=== PATIENT | female | born 1940 | race Caucasian/White ===

== ENCOUNTER → 2017-03-18 | Day surgery (SDC) | payer OTHER ==
--- NOTE | 2017-02-17 14:03 | Diagnostic Imaging Report ---
PROCEDURE: Frontal and lateral views of the chest. COMPARISON: [facility], CT, CT CHEST WO, 10/11/2016, 8:15. Patients [facility], DX, CHEST 2 VIEWS, 10/10/2016, 9:56. INDICATIONS: PRE OP KIDNEY STONE REMOVAL FINDINGS: Lines/tubes: None. Lungs: Mild limitation due to low lung volumes and body habitus. Previously visualized airspace opacity in the right midlung has resolved. No consolidation or pulmonary edema. Minimal bibasilar atelectasis. Pleura: There is no pleural effusion or pneumothorax. Heart and mediastinum: The cardiac silhouette is enlarged, but stable, which may be partially due to low volumes. Stable, rounded density in the retrocardiac region, consistent with previously visualized hiatal hernia. Bones: No acute bony abnormality. Degenerative changes in the thoracic spine. IMPRESSION: 1. limited by low lung volumes and body habitus. Minimal bibasilar atelectasis. Gael Kahn M.D. Dictated by: Gael Kahn M.D. on 02/17/2017 at 14:09 Electronically approved by: Gael Kahn M.D. on 02/17/2017 at 14:09
[~2017-03-18] MED LIST: AMOXICILLIN250 MG PO; ASPIRIN CHEW81 MG PO; AZITHROMYCIN250 MG PO; BELLADONNA/OPIUM 60 MG SUPP PR ONE; CEFDINIR300 MG PO; CEFTRIAXONE SOD 1 GM/NS 50 ML 50 ML IV ONE; CEFUROXIME250 MG PO; CEFUROXIME500 MG PO; CHERATUSSIN AC118 ML PO; COMBIGAN EYE DRO5 ML OP; DAILY VITAMIN1 EAC3 PO; DESFLURANE 240 ML BTL INH ONE; DEXAMETHASONE SOD PHOS INJ 4 MG/ML VIAL ONE; EPHEDRINE SULFATE INJ 50 MG/10 ML SYR ONE; FAMOTIDINE20 MG PO; FLOMAX0.4 MG PO; FLUTICASONE; FLUTICASONE 50 MG; IOPAMIDOL 610MG/1ML 300 MG/ML VIAL IV ONE; JANUMET 50-1,01 EACH PO; KLONOPIN1 MG PO; LAC PO; LIBRAX CAPSULE1 EACH PO; LORATADINE10 MG PO; LUMIGAN2.5 M1 OP; MACROBID 100 M100 MG PO; MIDAZOLAM HCL 2 MG/2 ML VIAL ONE; MYRBETRIQ50 MG PO; NITROFURANTOIN100 MG PO; NYSTATIN100000 UNI PO; OMEPRAZOLE40 MG PO; ONDANSETRON HCL INJ 2 MG/ML VIAL ONE; OS-CAL 500+D T1 EACH PO; OXYBUTYNIN CHLOR5 MG PO; PROPOFOL IV EMULSION 10 MG/ML 20 ML VIAL ONE; PROVENTIL HFA6.7 GM INH; QUESTRAN PACKET4 GM PO; REGLAN10 MG PO; SULFAMETHOXAZO1 EAC1 PO; TAMIFLU75 MG PO; ULTRAM50 MG PO; VITAMIN B-121000 MCG PO; Z.0.AMLODIPINE BESYL PO; Z.0.JANUVIA100 MG PO; Z.0.LATANOPROST2.5 M OP; Z.0.LISINOPRIL40 MG PO; Z.0.LOVASTATIN40 MG PO; Z.0.OMEPRAZOLE20 M1 PO; Z.0.OXYBUTYNIN CHLOR PO; Z.1.METFORMIN HCL100 PO; ZOFRAN ODT4 MG PO
[2017-03-18 06:55] LABS: BASOPHILS % 0.4 % (0.0-1.0); EOSINOPHILS % 0.4 % (0.0-6.0); HEMATOCRIT 40.8 % (34.2-44.1); HEMOGLOBIN 12.8 g/dL (12.0-16.0); LYMPHOCYTES # (AUTO) 1.5 (1.0-3.2); LYMPHOCYTES % 15.9 % (18.0-39.1); MEAN CORPUSCULAR HEMOGLOBIN 26.2 pg (28-32); MEAN CORPUSCULAR HGB CONC 31.4 g/dL (31-35); MEAN CORPUSCULAR VOLUME 83.6 fL (81-99); MONOCYTES # (AUTO) 0.7 (0.2-0.8); MONOCYTES % 7.2 % (4.4-11.3); NEUTROPHILS % 75.8 % (38.7-80.0); PLATELET COUNT 255 x10e3/uL (140-360); RED BLOOD COUNT 4.88 x10e6/uL (3.6-5.1); RED CELL DISTRIBUTION WIDTH 13.5 % (11.7-14.4)
[2017-03-18 07:09] LABS: ANION GAP 14.3 mmol/L (8-16); BLOOD UREA NITROGEN 11 mg/dL (7-26); BUN/CREATININE RATIO 16 (6-25); CALCIUM 9.4 mg/dL (8.4-10.2); CARBON DIOXIDE 27 mmol/L (22-29); CHLORIDE 101 mmol/L (98-107); EST GLOMERULAR FILTRATION RATE > 60 ML/MIN (60-); GLUCOSE 142 mg/dL (74-118); POTASSIUM 4.3 mmol/L (3.5-5.1); SODIUM 138 mmol/L (136-145)
--- NOTE | 2017-03-18 08:04 | Diagnostic Imaging Report ---
PROCEDURE:X-RAY ABDOMEN - KUB COMPARISON:CT scan of the abdomen and pelvis dated 01/28/2017 INDICATIONS:PRE-OP, BILATERAL STONES FINDINGS: There are no dilated loops of bowel to suggest obstruction. There are no masses. There are 3 small calcifications that overlie the lower pole of the right kidney. There is no evidence of free air. No acute osseous abnormalities are present. CONCLUSION: 1. No acute abdominal abnormality. 2. small stones overlying the lower aspect of the right kidney. Kevin Crespo D.O. Dictated by: Kevin Crespo D.O. on 03/18/2017 at 8:11 Electronically approved by: Kevin Crespo D.O. on 03/18/2017 at 8:11
--- NOTE | 2017-04-29 04:37 | Operative Report ---
DATE OF PROCEDURE: March 18, 2017 PREOPERATIVE DIAGNOSES 1. Right nephrolithiasis. 2. Urinary tract infections. 3. Mixed-type urinary incontinence. POSTOPERATIVE DIAGNOSES 1. Right nephrolithiasis. 2. Urinary tract infections. 3. Mixed-type urinary incontinence. 4. Grade 3 cystocele of the cephalad portion of the vagina. 5. Grade 3 rectocele. 6. Atrophic (senile) vaginitis. OPERATIONS PERFORMED: Note these are all staged procedures as part of multistage, multistep process of managing the patient's urolithiasis. 1. Right-sided extracorporeal shockwave lithotripsy (separate procedure performed for the right nephrolithiasis). 2. Cystourethroscopy with bilateral ureteral catheterization and retrograde ureteropyelography (separate procedure performed for the urinary tract infections). 3. Interpretation retrograde ureteropyelography. 4. Supervision of fluoroscopy. No radiologist present. 5. Pelvic examination under anesthesia. ANESTHESIA: General. COMPLICATIONS: None. CLINICAL SUMMARY: Zoey Valle is a 76-year-old woman with recurrent urolithiasis and recurrent urinary tract infections. She is brought for the above procedures. She is aware of the risks of bleeding, infection, injury to adjacent structures, need for additional procedures, and elected proceed. OPERATIVE PROCEDURE IN DETAIL: Informed consent was verified. Zoey Valle was properly identified and taken to the operating room and placed on the lithotripsy table in the supine position. Anesthesia was uneventfully begun. The patient's right lower caliceal 5-mm stone was localized with biplanar fluoroscopy. A total of 3000 shocks were delivered with fragmentation noted. The patient was then carefully and gently repositioned in the dorsal lithotomy position with all pressure points well-padded. Her genitalia were prepared and draped in the usual sterile fashion. The 22.5-Welsh cystoscope sheath with the obturator in place was atraumatically inserted in the patient's urethra and bladder was drained. Panendoscopy of the urinary bladder revealed no suspicious mucosal lesions. No tumors. No stones and no diverticula. Mild trabeculations were noted. An 8-Welsh catheter was used cannulate each ureter, and retrograde ureteropyelograms were performed. Interpretation of retrograde ureteropyelography. Contrast was instilled in a retrograde fashion bilaterally. On the right hand side, there were no tumors. No diverticula. We identified filling defect corresponding to the region where we performed lithotripsy. Unobstructed drainage was observed fluoroscopically. On the left hand side, we could never visualize left lower pole stone that was previously noted on prior radiographic studies. There was no hydronephrosis and unobstructed drainage was observed fluoroscopically. The patient's bladder was then drained. Cystoscope was withdrawn. Pelvic examination under anesthesia revealed a grade 3 cystocele with the cephalad most extent of the anterior vaginal wall. There was a grade 3 rectocele. There was atrophic (senile) vaginitis. No abnormal palpable pelvic masses could be appreciated. The patient was then uneventfully reversed from anesthesia and taken to the recovery room in stable condition. Explicit postoperative instructions were given. Will follow the patient up in the office. Job#: [id number] AYAN
== END | disposition home or self-care (01) ==
LOC: OR 05:13
PROVIDERS: ATTEND Urology
DX: N20.0 Calculus of kidney (principal); N39.46 Mixed incontinence; N35.9 Urethral stricture, unspecified; N30.10 Interstitial cystitis (chronic) without hematuria; N32.89 Other specified disorders of bladder; R81 Glycosuria; N81.10 Cystocele, unspecified; N81.6 Rectocele; N95.2 Postmenopausal atrophic vaginitis; I10 Essential (primary) hypertension; E66.9 Obesity, unspecified; E78.5 Hyperlipidemia, unspecified; E11.9 Type 2 diabetes mellitus without complications; K21.9 Gastro-esophageal reflux disease without esophagitis; Z01.810 Encounter for preprocedural cardiovascular examination; Z01.818 Encounter for other preprocedural examination; Z79.82 Long term (current) use of aspirin; Z68.33 Body mass index [BMI] 33.0-33.9, adult; Z87.01 Personal history of pneumonia (recurrent)
CPT/HCPCS: 36415; 50590; 71020; 74000; 80048; 82948; 84550; 85025; 93005; C1758; J0696; J1100; J2250; J2405; Q9967

== ENCOUNTER 2017-05-20 08:30 | Emergency (ER) | payer OTHER ==
[~2017-05-20] VITALS: Ht 165.1 cm; Wt 93.4 kg
[~2017-05-20 08:30] MED LIST changes: -BELLADONNA/OPIUM 60 MG SUPP PR ONE; -CEFTRIAXONE SOD 1 GM/NS 50 ML 50 ML IV ONE; -DESFLURANE 240 ML BTL INH ONE; -DEXAMETHASONE SOD PHOS INJ 4 MG/ML VIAL ONE; -EPHEDRINE SULFATE INJ 50 MG/10 ML SYR ONE; -IOPAMIDOL 610MG/1ML 300 MG/ML VIAL IV ONE; -MIDAZOLAM HCL 2 MG/2 ML VIAL ONE; -ONDANSETRON HCL INJ 2 MG/ML VIAL ONE; -PROPOFOL IV EMULSION 10 MG/ML 20 ML VIAL ONE
--- OUTSIDE RECORDS SUMMARY | 2017-05-20 08:33 | XMS REPORT | Clinical Summary ---
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 Disp. Refills Start End Date Status Date omeprazole (PriLOSEC) 20 Take 20 mg by mouth Active MG capsule daily. bimatoprost (LUMIGAN) 1 drop nightly. Active 0.03 % ophthalmic drops sitaGLIPtin (JANUVIA) 50 Take 50 mg by mouth Active MG tablet daily. lovastatin (MEVACOR) 40 40 mg. 10/09/19 Active MG tablet 17 losartan (COZAAR) 100 MG 100 mg. 0 11/06/19 Active tablet 17 famotidine (PEPCID) 40 MG 40 mg. 3 12/26/19 Active tablet 17 amLODIPine (NORVASC) 5 mg 5 mg. 0 12/26/19 Active tablet 17 sulfamethoxazole-trimetho Take 1 tablet by mouth 2 Active prim (BACTRIM DS) 800-160 (two) times a day. mg per tablet azelastine (ASTELIN) 137 2 sprays into each 30 mL 2 12/31/19 Active mcg (0.1 %) nasal nostril 2 (two) times a 17 18 sprayIndications: day. Use in each nostril Seasonal allergic as directed rhinitis due to pollen lisinopril Take 40 mg by mouth 11/27/19 Discontin (PRINIVIL,ZESTRIL) 40 mg daily. 17 ued tablet Hospital, Clinic, or Ordered Dose Route Frequency Start End Date Status Other Facility Date Administered Medication triamcinolone acetonide 40 MG IM Once 12/31/19 Active (KENALOG-40) injection 40 17 mgIndications: Seasonal allergic rhinitis due to pollen Active Problems Problem Noted Date Seasonal allergic rhinitis due to pollen 12/30/2016 Tinnitus 11/26/2016 Thyroid nodule 11/26/2016 Sensorineural hearing loss, bilateral 11/26/2016 Encounters Date Type Specialty Care Team Description 12/30/2016 Office Visit Otolaryngology Adama Galarza MD Seasonal allergic rhinitis due to pollen (Primary Dx) 11/26/2016 Office Visit Otolaryngology Adama Galarza MD Tinnitus, left (Primary Dx);Thyroid nodule;Sensorineural hearing loss, bilateral after 05/19/2016 Social History Tobacco Use Types Packs/Day Years Used Date Never Smoker Alcohol Use Drinks/Week oz/Week Comments No Sex Assigned at Date Recorded Not on file Last Filed Vital Signs Vital Sign Reading Time Taken Blood Pressure 136/83 12/30/2016 2:00 PM CDT Pulse 72 12/30/2016 2:00 PM CDT Temperature - - Respiratory Rate - - Oxygen Saturation - - Inhaled Oxygen - - Concentration Weight 93 kg (205 lb) 12/30/2016 2:00 PM CDT Height 165.1 cm (5' 5") 12/30/2016 2:00 PM CDT Body Mass Index 34.11 12/30/2016 2:00 PM CDT Plan of Treatment Health Maintenance Due Date Last Done Comments COLONOSCOPY 1992 MAMMOGRAM 1992 ZOSTER VACCINE 2002 PNEUMOCOCCAL 12/21/2007 POLYSACCHARIDE VACCINE AGE 65 AND OVER PNEUMOCOCCAL-13 12/21/2007 INFLUENZA VACCINE 11/10/2016 Results Not on fileafter 05/19/2016 Insurance Payer Benefit Subscriber ID Type Phone Address Plan / Group [employer] TEX[employer] [id number] [facility]
--- OUTSIDE RECORDS SUMMARY | 2017-05-20 08:33 | XMS REPORT ---
[facility] Address Unknown Phone Unavailable Care Team Providers Care Seat Joiner Name Role Phone LEANNA MARTINEZ Unavailable Unavailable MELISA SQUIRES Unavailable Unavailable Problems This patient has no known problems. Allergies, Adverse Reactions, Alerts This patient has no known allergies or adverse reactions. Medications This patient has no known medications. Results Test Description Test Time Test Comments Text Results Atomic Results Result Comments ABDOMEN-1VIEW (KUB) [place] [address] Patient Name: AMNA GALICIA MR #: [id number] : 1940 Age/Sex: 76/F Req #: [id number] Adm Physician: Ordered by: LEANNA MARTINEZ MD Report #: [id number] Location: OR Room/Bed: Procedure: [id number] DX/ABDOMEN-1VIEW (KUB) Exam Date: 03/18/17 Exam Time : 0620 REPORT STATUS: Signed PROCEDURE: X-RAY ABDOMEN - KUB COMPARISON: CT scan of the abdomen and pelvis dated 01/28/2017 INDICATIONS: PRE-OP, BILATERAL STONES FINDINGS: There are no dilated loops of bowel to suggest obstruction. There are no masses. There are 3 small calcifications that overlie the lower pole of the right kidney. There is no evidence of free air. No acute osseous abnormalities are present. CONCLUSION: 1. No acute abdominal abnormality. 2. small stones overlying the lower aspect of the right kidney. Carmen Crespo D.O. Dictated by: Carmen Crespo D.O. on 03/18/2017 at 8:11 Electronically approved by: Carmen Crespo D.O. on 03/18/2017 at 8:11 Dictated By: CARMEN CRESPO DO 0 Transcribed By: FAUSTINA on 03/18/17810 COPY TO: LEANNA MARTINEZ MD CHEST 2 VIEWS [place] [address] Patient Name: AMNA GALICIA MR #: [id number] : 1940 Age/Sex: 76/F Req #: [id number] Adm Physician: Ordered by: LEANNA MARTINEZ MD Report #: [id number] Location: OR Room/Bed: Procedure: [id number] DX/ CHEST 2 VIEWS Exam Date: 02/17/17 Exam Time: 1300 REPORT STATUS: Signed PROCEDURE: Frontal and lateral views of the chest. COMPARISON: [facility], CT, CT CHEST WO, 10/11/2016, 8: 15. [facility], DX, CHEST 2 VIEWS, 10/10/2016, 9:56. INDICATIONS: PRE OP KIDNEY STONE REMOVAL FINDINGS: Lines/tubes: None. Lungs: Mild limitation due to low lung volumes and body habitus. Previously visualized airspace opacity in the right midlung has resolved. No consolidation or pulmonary edema. Minimal bibasilar atelectasis. Pleura : There is no pleural effusion or pneumothorax. Heart and mediastinum: The cardiac silhouette is enlarged, but stable, which may be partially due to low volumes. Stable, rounded density in the retrocardiac region, consistent with previously visualized hiatal hernia. Bones: No acute bony abnormality. Degenerative changes in the thoracic spine. IMPRESSION: 1. limited by low lung volumes and body habitus. Minimal bibasilar atelectasis. Joy Kahn M.D. Dictated by: Joy Kahn M.D. on 02/17/2017 at 14:09 Electronically approved by: Joy Kahn M.D. on 02/17/2017 at 14:09 Dictated By: JOY KAHN MD 08 Transcribed By: FAUSTINA on 02/17/171408 COPY TO: LEANNA MARTINEZ MD CT ABDOMEN/PELVIS WO [place] [address] Patient Name: AMNA GALICIA MR #: [id number] : 1940 Age/Sex: 76/F Req #: [id number] Adm Physician: Ordered by: MELISA SQUIRES MD Report #: [id number] Location: ER Room/Bed: Procedure: [id number] CT/CT ABDOMEN/PELVIS WO Exam Date: 01/28/17 Exam Time: 0946 REPORT STATUS: Signed PROCEDURE: CT ABDOMEN AND PELVIS WITHOUT CONTRAST COMPARISON: CT abdomen/pelvis, 11/07/14. INDICATIONS: STONE PROTOCOL TECHNIQUE: Axial CT images through the abdomen and pelvis were obtained without IV contrast. Renal stone protocol performed. Coronal and sagittal reformations were created. Total exam DLP: 803.12 mGy-cm FINDINGS: Lung bases: Scattered interstitial prominence the lung bases with no focal opacity or pleural effusion. Heart size normal. Liver: In the dome of the right lobe of the liver again noted are 2 stable masses containing fat and calcification, the larger measuring 2.1 cm (series 3, image 13 and image 18). No new liver mass or intrahepatic bile duct dilatation. Spleen: No splenomegaly. Biliary: Surgical absence of the gallbladder with cholecystectomy clips. Pancreas: No mass, duct dilatation or peripancreatic inflammation. Adrenal Glands: No nodules. Kidneys: No hydronephrosis. There are bilateral nonobstructing intrarenal calculi measuring 6 mm in the lower pole of the right kidney and 4 mm in the lower pole of the left kidney. These have increased slightly since the previous exam. Stable small lateral right renal cyst. Vasculature: The abdominal aorta is atherosclerotic with scattered calcified plaque. No aneurysm. GI: Moderate hiatus hernia again noted. Ludwig colonic diverticulosis with no CT evidence for diverticulitis. Moderately large volume of stool in the colon which may be seen in constipation. Normal appendix. Peritoneum/Retroperitoneum : No pneumoperitoneum or ascites. No dominant mesenteric or para-aortic lymphadenopathy. Bladder: Urinary bladder appears unremarkable. No discrete abnormal mass or fluid collection in the pelvis. Reproductive organs: The uterus is anteverted with a small exophytic fundal mass likely representing a fibroid. Musculoskeletal: No acute or suspicious bony lesion. There are degenerative changes in the lumbar spine. There also degenerative changes in the hips. Superficial surrounding soft tissue unremarkable. CONCLUSION: 1. Small bilateral nonobstructing intrarenal calculi measuring up to 6 mm on the right and 4 mm on the left. These have increased slightly in size since previous exam. No hydronephrosis or ureteral calculus. 2. Small masses in the dome of the right lobe of the liver, measuring up to 2.1 cm, unchanged from previous exam. 3. Ludwig colonic diverticulosis with no CT evidence for acute diverticulitis. 4. Moderate hiatus hernia. Dictated by: Radha Guardado M.D. on 01/28/2017 at 11:08 Electronically approved by: Radha Guardado M.D. on 01/28/2017 at 11:08 Dictated By: RADHA GUARDADO MD 110 Transcribed By: FAUSTINA on 01/28/178 COPY TO : MELISA SQUIRES MD
[2017-05-20] MEDS ORDERED: SODIUM CHLORIDE 0.9% 1000ML 1,000 ML IV SCH (08:45)
[2017-05-20 09:35] LABS: BILIRUBIN,URINE 1+ (NEGATIVE); KETONES,URINE 1+ (NEGATIVE); LEUKOCYTE ESTERASE ,URINE NEGATIVE (NEGATIVE); NITRITE,URINE NEGATIVE (NEGATIVE); URINE UROBILINOGEN 0.2 mg/dL (0.2 - 1)
[2017-05-20 09:39] LABS: CLARITY,URINE SL CLOUDY (CLEAR); COLOR,URINE YELLOW (YELLOW); PROTEIN,URINE DIPSTICK 1+ (NEGATIVE)
[2017-05-20 10:07] LABS: BASOPHILS % 0.5 % (0.0-1.0); EOSINOPHILS # (AUTO) 0.1 (0.0-0.4); EOSINOPHILS % 0.6 % (0.0-6.0); HEMATOCRIT 41.4 % (34.2-44.1); HEMOGLOBIN 12.9 g/dL (12.0-16.0); LYMPHOCYTES % 23.8 % (18.0-39.1); MEAN CORPUSCULAR HEMOGLOBIN 26.7 pg (28-32); MEAN CORPUSCULAR HGB CONC 31.2 g/dL (31-35); MEAN CORPUSCULAR VOLUME 85.5 fL (81-99); MONOCYTES # (AUTO) 0.7 (0.2-0.8); MONOCYTES % 8.7 % (4.4-11.3); NEUTROPHILS # (AUTO) 5.6 (2.1-6.9); NEUTROPHILS % 65.9 % (38.7-80.0); PLATELET COUNT 271 x10e3/uL (140-360); RED BLOOD COUNT 4.84 x10e6/uL (3.6-5.1); RED CELL DISTRIBUTION WIDTH 14.6 % (11.7-14.4)
[2017-05-20 10:16] LABS: BACTERIA,URINE RARE /HPF; EPITHELIAL CELLS,URINE RARE /LPF; TRANSITIONAL EPI CELLS,URINE RARE
[2017-05-20 10:18] LABS: ALANINE AMINOTRANSFERASE 17 IU/L (0-55); ALBUMIN 4.2 g/dL (3.5-5.0); ALBUMIN/GLOBULIN RATIO 1.2 (0.8-2.0); ALKALINE PHOSPHATASE 87 IU/L (40-150); ANION GAP 13.9 mmol/L (8-16); BLOOD UREA NITROGEN 11 mg/dL (7-26); BUN/CREATININE RATIO 15 (6-25); CALCIUM 9.1 mg/dL (8.4-10.2); CARBON DIOXIDE 26 mmol/L (22-29); CHLORIDE 105 mmol/L (98-107); CREATININE, SERUM 0.75 mg/dL (0.57-1.11); EST GLOMERULAR FILTRATION RATE > 60 ML/MIN (60-); GLUCOSE 124 mg/dL (74-118); POTASSIUM 3.9 mmol/L (3.5-5.1); SODIUM 141 mmol/L (136-145)
[2017-05-20 10:22] LABS: OVALOCYTES FEW; PLATELET ESTIMATE ADEQUATE
[2017-05-20 10:23] LABS: ANISOCYTOSIS SLIGHT; PLATELET MORPHOLOGY COMMENT NORMAL; RBC MORPHOLOGY COMMENT NORMAL
[2017-05-20] MEDS ORDERED: ZOFRAN4 MG SL (10:32)
[2017-05-20] MEDS ORDERED: MECLIZINE HCL12.5 MG PO (10:33)
[2017-05-20 11:10] VITALS: BP 121/73
== END 2017-05-20 11:15 | disposition home or self-care (01) ==
LOC: ER 08:30
DX: N39.41 Urge incontinence (principal); E86.0 Dehydration; Z87.440 Personal history of urinary (tract) infections
CPT/HCPCS: 36415; 80053; 81001; 85025; 87086; 99283; J7030

== ENCOUNTER 2017-08-14 08:25 | Emergency (ER) | payer OTHER ==
[~2017-08-14] VITALS: Ht 165.1 cm; Wt 93.4 kg
[~2017-08-14 08:25] MED LIST changes: +MECLIZINE HCL12.5 MG PO; +ZOFRAN4 MG SL
--- OUTSIDE RECORDS SUMMARY | 2017-08-14 08:28 | XMS REPORT | Clinical Summary ---
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 Name Role Phone Clement Mann MD PCP Allergies Active Allergy Reactions [...] Facility Date Administered Medication triamcinolone acetonide 40 mg IM once 12/31/19 Active (KENALOG-40) injection 40 17 mgIndications: [...] Otolaryngology Adama Galarza MD Tinnitus, left (Primary Dx); Thyroid nodule; Sensorineural hearing loss, bilateral after 08/13/2016 Social History Tobacco Use Types Packs/Day Years [...] Last Done Comments COLONOSCOPY 1992 MAMMOGRAM 1992 SHINGRIX VACCINE (#1) 1992 ZOSTER VACCINE 2002 PNEUMOCOCCAL 12/21/2007 POLYSACCHARIDE VACCINE AGE 65 AND OVER PNEUMOCOCCAL-13 12/21/2007 INFLUENZA VACCINE 11/10/2017 Results Not on fileafter 08/13/2016 Insurance Payer Benefit Subscriber ID Type Phone Address Plan / Group TEX[employer] TEXAN[employer]US xxxxxxxxx [facility]MO [facility]
--- OUTSIDE RECORDS SUMMARY | 2017-08-14 08:28 | XMS REPORT | Continuity of Care Document ---
Author Author [facility] Organization [facility] Address [address] [place] [address] Phone Unavailable Care Team Providers Care Core Stripper Name Role Phone NONSTAFF PCP Unavailable Insurance Providers Guarantor Zoey Valle Address [address] [place] [address] Email [email or web address] Payer [employer] Policy Number [id number] Subscriber's Name Zoey Valle Relationship 18 Self / Same As Patient Group Number [id number] Group Name [employer] - [employer] Effective Date 17 Advance Directives Directive Response Recorded Date/Time Does the patient have an advance directive? Yes 10/10/16 3:52pm If yes, is advance directive on file with [facility]? No 10/10/16 3:52pm If not on file with [facility] will patient provide a copy? Yes 10/10/16 3:52pm Do you have a Directive to Physician? No 05/20/17 9:23am Do you have a Medical Power of Paper Machine Supervisor? Yes 05/20/17 9:23am Do you have an out of hospital Do Not Resuscitate Order? No 05/20/17 9:23am Do you have any special needs we should be aware of? No 05/20/17 9:23am Do you have a support person here with you today? No 05/20/17 9:23am Did patient receive Notice of Privacy Practices? Yes 05/20/17 9:23am Did patient receive patient rights and responsibilities? Yes 05/20/17 9:23am Problems Medical Problem Onset Date Status Abdominal pain, vomiting, and diarrhea 06/28/2014 Acute Chest pain 11/13/2015 Acute Dehydration Unknown Dyspnea 11/13/2015 Acute Fatigue 11/13/2015 Acute Influenza B Unknown Kidney stone on left side Unknown Acute Kidney stone on right side Unknown Acute Pneumonia Unknown Renal colic, bilateral Unknown Acute Ureteral stone 06/28/2014 Acute Urinary tract infection Unknown Acute Medications Current Home Medications Medication Dose Units Route Directions Days Qty Instructions Start Date Amlodipine Besylate 5 Mg Tablet 5 Mg Oral Daily Aspirin (Aspirin Chew) 81 Mg Chew 81 Mg Oral Daily 30 Tab Bimatoprost (Lumigan) 2.5 Ml Drops 2.5 Mg Ophthalmic Daily Brimonidine Tartrate (Combigan Eye Drops) 5 Ml Drpette 1 Drop Ophthalmic Daily Calcium Carbonate/Vitamin D3 (Os-Jd 500+D Tablet) 1 Each Tablet 500 Mg Oral Twice A Day 30 Tab Cyanocobalamin (Vitamin B-12) 1,000 Mcg Tab 1,000 Mcg Oral Daily 30 Tab Famotidine 20 Mg Tab 40 Mg Oral Daily 30 Tab Lisinopril 40 Mg Tablet 40 Mg Oral Daily Loratadine 10 Mg Tablet 10 Mg Oral Daily 30 Tab Lovastatin 40 Mg Tablet 40 Mg Oral Bedtime Meclizine Hcl 12.5 Mg Tablet 25 Mg Oral Daily for Dizziness 7 Days 30 Tab 05/20/17 Multivitamin (Daily Vitamin) 1 Each Tablet 1 Oral Daily Nitrofurantoin Macrocrystal (Nitrofurantoin) 100 Mg Capsule 100 Mg Oral Daily Omeprazole 40 Mg Capsule.dr 20 Mg Oral Daily Ondansetron (Zofran Odt) 4 Mg Tab.rapdis 4 Mg Oral Every 4 Hours as needed for Nausea And Vomiting Ondansetron Hcl (Zofran*) 4 Mg Tablet 4 Mg Sublingual Every 6 Hours as needed for Nausea 7 Days 14 Milligram 05/20/17 Sitagliptin Phos/Metformin Hcl (Janumet 50-1,000 Mg Tablet) 1 Each Tablet 1 Tab Oral Twice A Day Tramadol Hcl (Ultram) 50 Mg Tablet 50 Mg Oral Every 8 Hours for Pain Past Home Medications Medication Directions Ordered Status Albuterol Sulfate (Proventil Hfa) 6.7 Gm Hfa.aer.ad, 2 Inh Inhalation Discontinued Amoxicillin 250 Mg Capsule, 500 Mg Oral Three Times A Day Discontinued Azithromycin (Z-Sean) 250 Mg Tablet, 250 Mg Oral Daily Discontinued Cefdinir (Omnicef) 300 Mg Capsule, 300 Mg Oral Twice A Day Discontinued Cefuroxime Axetil (Cefuroxime) 250 Mg Tablet, 250 Mg Oral Every 12 Hours Discontinued Cefuroxime Axetil (Cefuroxime) 500 Mg Tablet, 500 Mg Oral Twice A Day Discontinued Chlordiazepoxide/Clidinium Br (Librax Capsule) 1 Each Capsule, 1 Tab Oral Qhs Discontinued Cholestyramine (With Sugar) (Questran Packet) 4 Gm Packet, 4 Gm Oral Daily Discontinued Clonazepam (Klonopin) 1 Mg Tablet, 1 Mg Oral Twice A Day Discontinued Fluticasone 50MG , Discontinued Guaifenesin/Codeine Phosphate (Cheratussin Ac Syrup) 118 Ml Liquid, 10 Ml Oral Every 4 Hours as needed for Cough Discontinued Lac 1 Tab Cap, 1 Tab Oral Every 12 Hours 07/01/14 Discontinued Latanoprost 2.5 Ml Drops, 2.5 Ml Ophthalmic Bedtime Discontinued Metformin Hcl 1,000 Mg Tablet, 1000 Mg Oral Twice A Day Discontinued Metoclopramide Hcl (Reglan) 10 Mg Tablet, 10 Mg Oral Three Times A Day Discontinued Mirabegron (Myrbetriq) 50 Mg Tab.er.24h, 50 Mg Oral Daily Discontinued Nitrofurantoin Macrocrystal (Nitrofurantoin) 100 Mg Capsule, 1 Cap Oral Twice A Day Discontinued Nitrofurantoin Macrocrystal (Nitrofurantoin) 100 Mg Capsule, 50 Mg Oral Every 8 Hours Discontinued Nitrofurantoin Monohyd/M-Cryst (Macrobid 100 Mg Capsule) 100 Mg Capsule, 100 Mg Oral Twice A Day Discontinued Nystatin 100,000 Unit/1 Ml Oral.susp, 5 Ml Oral Three Times A Day Discontinued Omeprazole 20 Mg Tablet.dr, 40 Mg Oral Twice A Day Discontinued Oseltamivir Phosphate (Tamiflu) 75 Mg Cap, 75 Mg Oral Twice A Day Discontinued Oxybutynin Chloride 5 Mg Tablet, 5 Mg Oral Twice A Day Discontinued Oxybutynin Chloride 5 Mg Tablet, 5 Mg Oral Twice A Day Discontinued Sitagliptin Phosphate (Januvia) 100 Mg Tablet, 100 Mg Oral Daily Discontinued Sulfamethoxazole/Trimethoprim (Sulfamethoxazole-Tmp Ds Tablet) 1 Each Tablet, 1 Tab Oral Daily Discontinued Sulfamethoxazole/Trimethoprim (Sulfamethoxazole-Tmp Ds Tablet) 1 Each Tablet, 363506 Mg Oral Daily Discontinued Tamsulosin Hcl (Flomax*) 0.4 Mg Cap, 0.4 Mg Oral Every 12 Hours 07/01/14 Discontinued Social History Social History Problem Response Recorded Date/Time Onset Date Status Hx Psychiatric Problems No 10/10/2016 3:52pm Not Applicable Not Applicable Hx Eating Disorder No 10/10/2016 3:52pm Not Applicable Not Applicable Hx Substance Use Disorder No 10/10/2016 3:52pm Not Applicable Not Applicable Hx Depression No 10/10/2016 3:52pm Not Applicable Not Applicable Hx Alcohol Use No 10/10/2016 3:52pm Not Applicable Not Applicable Hx Substance Use Treatment No 10/10/2016 3:52pm Not Applicable Not Applicable Hx Physical Abuse No 10/10/2016 3:52pm Not Applicable Not Applicable Smoking Status Start Date Stop Date Never Smoker Hospital Discharge Instructions No hospital discharge instruction information available. Plan of Care Discharge Date 05/20/17 11:15am Disposition HOME, SELF-CARE Condition at Discharge Stable Instructions/Education Provided Dehydration - Adult Urinary Incontinence Forms Provided Work/School Excuse Prescriptions See Medication Section Referrals Juan Clark Additional Instructions/Education INCREASE WATER INTAKE. TAKE MEDICATION PRESCRIBED. FOLLOW UP WITH UROLOGIST IN 2 DAYS SCHEDULED. Functional Status No functional status information available. Allergies, Adverse Reactions, Alerts Allergen Type Severity Reaction Status Last Updated esomeprazole mag Allergy Mild DIZZY Active 05/20/17 Ciprofloxacin Allergy Mild SWELLING Active 05/20/17 Eggs Allergy Intermediate VOMITING Active 05/20/17 Coffee Allergy Intermediate vomiting Active 05/20/17 TAPE Allergy Unknown Active 05/20/17 Immunizations No immunization information available. Vital Signs Acute Vital Signs Vital Response Date/Time Temperature (Fahrenheit) 98.7 degrees F (97.6 - 99.5) 01/28/2017 12:15pm Pulse Pulse Rate (adult) 60 bpm (60 - 90) 05/20/2017 11:10am Respiratory Rate 18 bpm (12 - 24) 05/20/2017 11:10am Blood Pressure 121/73 mm Hg 05/20/2017 11:10am Height 5 ft 5 in 05/20/2017 8:37am Weight 206 lb 05/20/2017 8:37am Body Mass Index 34.3 kg/m^2 05/20/2017 8:37am Results Laboratory Results Test Name Result Units Flags Reference Collection Date/Time Result Date/ Time Comments Differential Total Cells Counted 100 10/12/2016 6:25am 10/12/2016 8 :30am Neutrophils % (Manual) 56 % 40-74 10/12/2016 6:25am 10/12/2016 8:30am Lymphocytes % (Manual) 29 % 19-48 10/12/2016 6:25am 10/12/2016 8:30am Monocytes % (Manual) 13 % H 3.4-9.0 10/12/2016 6:25am 10/12/2016 8:30am Reactive Lymphocytes 2 10/12/2016 6:25am 10/12/2016 8:30am Hypochromasia SLIGHT 10/12/2016 6:25am 10/12/2016 8:30am [place] Bodies FEW 10/12/2016 6:25am 10/12/2016 8:30am Urine Uric Acid Crystals MODERATE H FEW 10/10/2016 4:55pm 10/10/2016 5 :51pm Urine Fine Granular Casts 1-5 H 0 10/10/2016 10:48am 10/10/2016 11: 56am Urine White Blood Cell Casts 1-5 H 0 10/10/2016 10:48am 10/10/2016 11: 56am Urine Mucus FEW H RARE 10/10/2016 10:48am 10/10/2016 11:56am Influenza Virus Types A,B Antigen NEGATIVE NEGATIVE 10/10/2016 9:33am 10/10/2016 10:44am Creatine Kinase 127 IU/L 29-168 10/10/2016 9:33am 10/10/2016 10:44am Creatine Kinase MB 0.90 ng/mL 0.00-5.00 10/10/2016 9:33am 10/10/2016 10 :53am Troponin I 0.005 ng/mL 0-0.300 10/10/2016 9:33am 10/10/2016 10:53am Stool Occult Blood NEGATIVE NEGATIVE 10/10/2016 11:48am 10/10/2016 12 :13pm Clostridium Difficile Toxin A & B NEGATIVE NEGATIVE 10/10/2016 11: 48am 10/10/2016 2:44pm Testing on stool aspirate specimens is outside newspaper stuffer claims since specimen type not validated on this assay. Urine Yeast RARE H NONE 01/28/2017 8:59am 01/28/2017 10:32am Bedside Glucose 146 mg/dL H 70-120 03/18/2017 6:54am 03/18/2017 7:02am Meter ID: [id number] Uric Acid 4.9 mg/dL 2.6-6.0 03/18/2017 6:49am 03/18/2017 7:11am White Blood Count 8.50 x10e3/uL 4.8-10.8 05/20/2017 9:3805/20/2017 10:10am Red Blood Count 4.84 x10e6/uL 3.6-5.1 05/20/2017 9:3805/20/2017 10: 10am Hemoglobin 12.9 g/dL 12.0-16.0 05/20/2017 9:3805/20/2017 10:10am Hematocrit 41.4 % 34.2-44.1 05/20/2017 9:3805/20/2017 10:10am Mean Corpuscular Volume 85.5 fL 81-99 05/20/2017 9:3805/20/2017 10: 10am Mean Corpuscular Hemoglobin 26.7 pg L 28-32 05/20/2017 9:382017 10:10am Mean Corpuscular Hemoglobin Concent 31.2 g/dL 31-35 05/20/2017 9:3805/20/2017 10:10am Red Cell Distribution Width 14.6 % H 11.7-14.4 05/20/2017 9:382017 10:10am Platelet Count 271 x10e3/uL 140-360 05/20/2017 9:3805/20/2017 10: 10am Neutrophils (%) (Auto) 65.9 % 38.7-80.0 05/20/2017 9:3805/20/2017 10 :10am Lymphocytes (%) (Auto) 23.8 % 18.0-39.1 05/20/2017 9:3805/20/2017 10 :10am Monocytes (%) (Auto) 8.7 % 4.4-11.3 05/20/2017 9:3805/20/2017 10: 10am Eosinophils (%) (Auto) 0.6 % 0.0-6.0 05/20/2017 9:3805/20/2017 10: 10am Basophils (%) (Auto) 0.5 % 0.0-1.0 05/20/2017 9:38am 05/20/2017 10: 10am IM GRANULOCYTES % 0.5 % 0.0-1.0 05/20/2017 9:38am 05/20/2017 10:10am Neutrophils # (Auto) 5.6 2.1-6.9 05/20/2017 9:38am 05/20/2017 10: 10am Lymphocytes # (Auto) 2.0 1.0-3.2 05/20/2017 9:38am 05/20/2017 10: 10am Monocytes # (Auto) 0.7 0.2-0.8 05/20/2017 9:38am 05/20/2017 10:10am Eosinophils # (Auto) 0.1 0.0-0.4 05/20/2017 9:38am 05/20/2017 10: 10am Basophils # (Auto) 0.0 0.0-0.1 05/20/2017 9:38am 05/20/2017 10:10am Absolute Immature Granulocyte (auto 0.04 x10e3/uL 0-0.1 05/20/2017 9: 38am 05/20/2017 10:10am Platelet Estimate ADEQUATE 05/20/2017 9:38am 05/20/2017 10:23am Platelet Morphology Comment NORMAL 05/20/2017 9:38am 05/20/2017 10: 23am Anisocytosis SLIGHT 05/20/2017 9:38am 05/20/2017 10:23am Ovalocytes FEW 05/20/2017 9:38am 05/20/2017 10:23am Red Cell Morphology Comment NORMAL 05/20/2017 9:38am 05/20/2017 10: 23am Urine Color YELLOW YELLOW 05/20/2017 8:39am 05/20/2017 9:39am Urine Clarity SL CLOUDY CLEAR 05/20/2017 8:39am 05/20/2017 9:39am Urine Specific [place] 1.015 1.010-1.025 05/20/2017 8:39am 2017 9:39am Urine pH 6 5 - 7 05/20/2017 8:39am 05/20/2017 9:39am Urine Leukocyte Esterase NEGATIVE NEGATIVE 05/20/2017 8:39am 2017 9:39am Urine Nitrite NEGATIVE NEGATIVE 05/20/2017 8:39am 05/20/2017 9:39am Urine Protein 1+ H NEGATIVE 05/20/2017 8:39am 05/20/2017 9:39am Urine Glucose (UA) NEGATIVE NEGATIVE 05/20/2017 8:39am 05/20/2017 9: 39am Urine Ketones 1+ H NEGATIVE 05/20/2017 8:39am 05/20/2017 9:39am Urine Urobilinogen 0.2 mg/dL 0.2 - 1 05/20/2017 8:39am 05/20/2017 9: 39am Urine Bilirubin 1+ H NEGATIVE 05/20/2017 8:39am 05/20/2017 9:39am Urine Blood NEGATIVE NEGATIVE 05/20/2017 8:39am 05/20/2017 9:39am Urine WBC NONE /HPF 0-5 05/20/2017 8:39am 05/20/2017 10:16am Urine RBC NONE /HPF 0-5 05/20/2017 8:39am 05/20/2017 10:16am Urine Bacteria RARE /HPF NONE 05/20/2017 8:39am 05/20/2017 10:16am Urine Epithelial Cells RARE /LPF NONE 05/20/2017 8:39am 05/20/2017 10: 16am Urine Transitional Epithelial Cells RARE H NONE 05/20/2017 8:39am 11/2017 10:16am Sodium Level 141 mmol/L 136-145 05/20/2017 9:38am 05/20/2017 10:22am Potassium Level 3.9 mmol/L 3.5-5.1 05/20/2017 9:38am 05/20/2017 10: 22am Chloride Level 105 mmol/L 98-107 05/20/2017 9:38am 05/20/2017 10:22am Carbon Dioxide Level 26 mmol/L 22-29 05/20/2017 9:38am 05/20/2017 10: 22am Anion Gap 13.9 mmol/L 8-16 05/20/2017 9:38am 05/20/2017 10:22am Blood Urea Nitrogen 11 mg/dL 7-05/20/2017 9:38am 05/20/2017 10:22am Creatinine 0.75 mg/dL 0.57-1.11 05/20/2017 9:38am 05/20/2017 10:22am BUN/Creatinine Ratio 15 6-25 05/20/2017 9:38am 05/20/2017 10:22am Estimat Glomerular Filtration Rate > 60 ML/MIN 60- 05/20/2017 9:38am 10:22am Ranges were taken from the National Kidney Disease Education Program and the National Kid[employer] Foundation literature. Reference ranges: 60 or greater: Normal 16-59 (for 3 consecutive months): Chronic kidney disease 15 or less: Kidney failure Glucose Level 124 mg/dL H 74-118 05/20/2017 9:38am 05/20/2017 10:22am Calcium Level 9.1 mg/dL 8.4-10.2 05/20/2017 9:38am 05/20/2017 10:22am Total Bilirubin 1.0 mg/dL 0.2-1.2 05/20/2017 9:38am 05/20/2017 10:22am Aspartate Amino Transf (AST/SGOT) 23 IU/L 5-34 05/20/2017 9:38am 2017 10:22am Alanine Aminotransferase (ALT/SGPT) 17 IU/L 0-55 05/20/2017 9:38am 11/2017 10:22am Total Protein 7.7 g/dL 6.5-8.1 05/20/2017 9:38am 05/20/2017 10:22am Albumin 4.2 g/dL 3.5-5.0 05/20/2017 9:38am 05/20/2017 10:22am Globulin 3.5 g/dL 2.3-3.5 05/20/2017 9:38am 05/20/2017 10:22am Albumin/Globulin Ratio 1.2 0.8-2.0 05/20/2017 9:38am 05/20/2017 10: 22am Alkaline Phosphatase 87 IU/L 40-150 05/20/2017 9:38am 05/20/2017 10: 22am Microbiology Results Procedure Source Organism/Result Collection Date/Time Result Date/Time Result Status Blood Culture Blood Growth detected. Culture workup ordered. 10/10/2016 10: 48am 10/11/2016 2:37pm Final Blood Culture Blood STAPHYLOCOCCUS SP COAG NEG 10/10/2016 10:48am 2016 10:14am Final Sputum Culture Sputum, Induced KIANA ALBICANS 10/10/2016 11:50pm 2016 9:09pm Final ESCHERICHIA COLI 10/10/2016 11:50pm 10/14/2016 9:09pm Final Procedures Procedure Status Date Provider(s) FRAGMENTING OF KIDNEY STONE Completed 03/18/17 LEANNA MARTINEZ MD X-ray of chest, two views Active 10/10/16 RADHA GARCIA MD Computed tomography of chest without contrast Active 10/11/16 ESTEVAN RAMON MD Magnetic resonance imaging of brain without contrast Active 10/12/[address] of abdomen and pelvis without contrast Active 01/28/17 MELISA SQUIRES MD X-ray of chest, two views Active 02/17/17 LEANNA MARTINEZ MD Encounters Encounter Location Arrival/Admit Date Discharge/Depart Date Attending Provider Departed Emergency Room [facility] 05/20/17 8:30am 11:15am FRANCESCO EISENBERG MD Registered [facility] Day [facility] 03/18/17 5:13am LEANNA MARTINEZ MD Departed Emergency Room [facility] 01/28/17 8:40am 12:32pm MELISA SQUIRES MD Discharged Inpatient [facility] 10/11/16 9:55am 10/13/16 1:06pm ESTEVAN RAMON MD
[2017-08-14 11:42] VITALS: BP 138/74
== END 2017-08-14 12:00 | disposition home or self-care (01) ==
LOC: ER 08:25
DX: M79.662 Pain in left lower leg (principal); M79.661 Pain in right lower leg
CPT/HCPCS: 93970; 99283

== ENCOUNTER 2017-11-14 07:13 | Emergency (ER) | payer OTHER ==
[~2017-11-14] VITALS: Ht 165.1 cm; Wt 97.1 kg
[2017-11-14 07:45] LABS: BASOPHILS % 0.6 % (0.0-1.0); EOSINOPHILS # (AUTO) 0.1 (0.0-0.4); EOSINOPHILS % 1.3 % (0.0-6.0); HEMATOCRIT 40.1 % (34.2-44.1); HEMOGLOBIN 12.4 g/dL (12.0-16.0); LYMPHOCYTES # (AUTO) 1.4 (1.0-3.2); LYMPHOCYTES % 20.7 % (18.0-39.1); MEAN CORPUSCULAR HEMOGLOBIN 25.7 pg (28-32); MEAN CORPUSCULAR HGB CONC 30.9 g/dL (31-35); MEAN CORPUSCULAR VOLUME 83.2 fL (81-99); MONOCYTES # (AUTO) 0.8 (0.2-0.8); MONOCYTES % 11.7 % (4.4-11.3); NEUTROPHILS # (AUTO) 4.5 (2.1-6.9); NEUTROPHILS % 65.4 % (38.7-80.0); PLATELET COUNT 258 x10e3/uL (140-360); RED BLOOD COUNT 4.82 x10e6/uL (3.6-5.1); RED CELL DISTRIBUTION WIDTH 13.7 % (11.7-14.4)
[2017-11-14 08:07] LABS: ALANINE AMINOTRANSFERASE 24 IU/L (0-55); ALBUMIN 4.1 g/dL (3.5-5.0); ALBUMIN/GLOBULIN RATIO 1.2 (0.8-2.0); ALKALINE PHOSPHATASE 76 IU/L (40-150); ANION GAP 14.9 mmol/L (8-16); BLOOD UREA NITROGEN 10 mg/dL (7-26); BUN/CREATININE RATIO 14 (6-25); CALCIUM 9.2 mg/dL (8.4-10.2); CARBON DIOXIDE 24 mmol/L (22-29); CHLORIDE 103 mmol/L (98-107); CREATINE KINASE 96 IU/L (29-168); CREATININE, SERUM 0.71 mg/dL (0.57-1.11); EST GLOMERULAR FILTRATION RATE > 60 ML/MIN (60-); GLUCOSE 150 mg/dL (74-118); POTASSIUM 3.9 mmol/L (3.5-5.1); SODIUM 138 mmol/L (136-145)
--- NOTE | 2017-11-14 08:24 | Diagnostic Imaging Report ---
EXAMINATION: CHEST 2 VIEWS COMPARISON: Chest x-ray 02/17/2017, CT chest 10/11/2016 INDICATION: Shortness of breath, pneumonia DISCUSSION: HEART AND MEDIASTINUM: The heart is mildly enlarged but this may be the result of prominent pericardial fat pads. Moderate sized hiatal hernia is present and grossly stable. No hilar lymphadenopathy. LINES: None. LUNGS: Subsegmental atelectasis in the right middle lobe and lingula have progressed. The diaphragms are flat. No mass. Vascular markings are normal. PLEURA: No pleural effusion or pneumothorax. BONES AND SOFT TISSUES: Diffusely demineralized with mild degenerative changes. The soft tissues are normal. IMPRESSION: 1. Moderate sized hiatal hernia. 2. Progression of bibasilar subsegmental atelectasis. Pulmonary hyperinflation suggestive of COPD. 3. Mild cardiomegaly. No vascular congestion. Signed by: Dr. Domenica Jeffers MD on 11/14/2017 8:20 AM
[2017-11-14 08:58] VITALS: BP 116/82
== END 2017-11-14 09:02 | disposition home or self-care (01) ==
LOC: ER 07:13
DX: R06.00 Dyspnea, unspecified (principal); R05 Cough; J06.9 Acute upper respiratory infection, unspecified; I10 Essential (primary) hypertension; E11.9 Type 2 diabetes mellitus without complications; E78.5 Hyperlipidemia, unspecified; Z87.19 Personal history of other diseases of the digestive system
CPT/HCPCS: 36415; 71046; 80053; 82550; 82553; 83880; 84484; 85025; 93005; 99284

== ENCOUNTER 2017-12-03 08:32 | Emergency (ER) | payer OTHER ==
[~2017-12-03] VITALS: Ht 165.1 cm; Wt 97.1 kg
[2017-12-03] MEDS ORDERED: ONDANSETRON HCL INJ 2 MG/ML VIAL IV STA (08:53)
[2017-12-03 09:27] LABS: BASOPHILS % 0.3 % (0.0-1.0); EOSINOPHILS # (AUTO) 0.1 (0.0-0.4); EOSINOPHILS % 1.2 % (0.0-6.0); HEMATOCRIT 40.3 % (34.2-44.1); HEMOGLOBIN 12.4 g/dL (12.0-16.0); LYMPHOCYTES # (AUTO) 1.4 (1.0-3.2); LYMPHOCYTES % 20.9 % (18.0-39.1); MEAN CORPUSCULAR HEMOGLOBIN 25.7 pg (28-32); MEAN CORPUSCULAR HGB CONC 30.8 g/dL (31-35); MEAN CORPUSCULAR VOLUME 83.4 fL (81-99); MONOCYTES # (AUTO) 0.7 (0.2-0.8); MONOCYTES % 9.8 % (4.4-11.3); NEUTROPHILS # (AUTO) 4.6 (2.1-6.9); NEUTROPHILS % 67.5 % (38.7-80.0); PLATELET COUNT 274 x10e3/uL (140-360); RED BLOOD COUNT 4.83 x10e6/uL (3.6-5.1); RED CELL DISTRIBUTION WIDTH 13.7 % (11.7-14.4)
[2017-12-03 09:29] LABS: CLARITY,URINE SL CLOUDY (CLEAR); COLOR,URINE YELLOW (YELLOW)
[2017-12-03 09:30] LABS: BILIRUBIN,URINE NEGATIVE (NEGATIVE); KETONES,URINE TRACE (NEGATIVE); LEUKOCYTE ESTERASE ,URINE TRACE (NEGATIVE); NITRITE,URINE POSITIVE (NEGATIVE); PROTEIN,URINE DIPSTICK TRACE (NEGATIVE); URINE UROBILINOGEN 0.2 mg/dL (0.2 - 1)
[2017-12-03 09:55] LABS: ALANINE AMINOTRANSFERASE 24 IU/L (0-55); ALBUMIN 4.2 g/dL (3.5-5.0); ALBUMIN/GLOBULIN RATIO 1.2 (0.8-2.0); ALKALINE PHOSPHATASE 84 IU/L (40-150); ANION GAP 16.6 mmol/L (8-16); BLOOD UREA NITROGEN 11 mg/dL (7-26); BUN/CREATININE RATIO 14 (6-25); CALCIUM 9.5 mg/dL (8.4-10.2); CARBON DIOXIDE 24 mmol/L (22-29); CHLORIDE 102 mmol/L (98-107); EST GLOMERULAR FILTRATION RATE > 60 ML/MIN (60-); GLUCOSE 122 mg/dL (74-118); POTASSIUM 4.6 mmol/L (3.5-5.1); SODIUM 138 mmol/L (136-145)
--- NOTE | 2017-12-03 10:00 | Diagnostic Imaging Report ---
PROCEDURE: Frontal and lateral views of the chest. COMPARISON: Chest radiograph 11/14/17. INDICATIONS: SHORTNESS OF BREATH FINDINGS: Lines/tubes: None. Lungs: Linear subsegmental atelectasis at the lung bases is again noted. There is no evidence of pneumonia or pulmonary edema. Pleura: There is no pleural effusion or pneumothorax. Heart and mediastinum: The cardiomediastinal silhouette is unchanged. Moderate hiatal hernia. Bones: No acute bony abnormality. IMPRESSION: No evidence of pneumonia or pulmonary edema. Dictated by: GARY ESCOTO M.D. on 12/03/2017 at 10:07 Electronically approved by: GARY ESCOTO M.D. on 12/03/2017 at 10:07
[2017-12-03 10:23] LABS: BACTERIA,URINE MANY /HPF; EPITHELIAL CELLS,URINE FEW /LPF
[2017-12-03 10:25] LABS: TRANSITIONAL EPI CELLS,URINE RARE
[2017-12-03] MEDS ORDERED: CEFTRIAXONE SOD 1 GM VIAL IV ONE (10:45)
[2017-12-03 11:22] VITALS: BP 152/84
== END 2017-12-03 11:42 | disposition home or self-care (01) ==
LOC: ER 08:32
DX: R06.00 Dyspnea, unspecified (principal); R42 Dizziness and giddiness; R11.2 Nausea with vomiting, unspecified; R35.8 Other polyuria; N39.0 Urinary tract infection, site not specified
CPT/HCPCS: 36415; 71046; 80053; 81001; 83880; 84484; 85025; 93005; 99283; J0696; J2405

== ENCOUNTER 2018-01-20 16:14 | Emergency (ER) | payer OTHER ==
[~2018-01-20] VITALS: Ht 165.1 cm; Wt 97.1 kg
[2018-01-20] MEDS ORDERED: CEFUROXIME250 MG PO (16:58)
[2018-01-20 19:10] LABS: BILIRUBIN,URINE NEGATIVE (NEGATIVE); CLARITY,URINE CLEAR (CLEAR); COLOR,URINE YELLOW (YELLOW); KETONES,URINE 1+ (NEGATIVE); LEUKOCYTE ESTERASE ,URINE NEGATIVE (NEGATIVE); NITRITE,URINE NEGATIVE (NEGATIVE); PROTEIN,URINE DIPSTICK NEGATIVE (NEGATIVE); URINE UROBILINOGEN 0.2 mg/dL (0.2 - 1)
--- OUTSIDE RECORDS SUMMARY | 2018-01-25 13:12 | XMS REPORT | Continuity of Care Document ---
Author Author [facility] Interface Address Unknown Phone Unavailable Problems Problem Status Onset Date Classification Date Reported Comments Source E11.9 Active 08/11/2017 [facility] DISORDER OF THYROID 246.9 Active 08/06/2014 [facility] 246.9 ABNORMAL THYROID EXAM Active 11/22/2013 [facility] URINARY SYMPTOMS Active 10/20/2012 [facility] UTI Active 08/24/2011 [facility] SIDE PAIN Active 04/02/2011 [facility] Medications Medication Details Route Status Patient Instructions Ordering Provider Order Date Source Bactrim oral tablet 1 tab, PO, BID, 14 tab, Substitution Allowed, Maintenance PO Active [facility] 08/24/2011 [facility] Pyridium 100 mg oral tablet 100 mg, 1 tab, PO, TID, PRN, 6 tab, Dysuria, Substitution Allowed PO Active [facility] 08/24/2011 [facility] Cipro 500 mg oral tablet 500 mg, 1 tab, PO, Q12H, 14 tab, Substitution Allowed, TAB PO Active [facility] 04/02/2011 [facility] Enablex 7.5 mg oral tablet, extended release 7.5 mg, 1 tab, PO, Daily, 30 tab, Substitution Allowed, ERTAB PO Active [facility] 04/02/2011 [facility] Allergies, Adverse Reactions, Alerts Substance Category Reaction Severity Reaction type Status Date Reported Comments Source Cipro Assertion Drug allergy Active [facility] Immunizations Immunization Date Given Site Status Last Updated Comments Source Results Order Name Results Value Reference Range Date Interpretation Comments Source Ext Lower Arterial bilat w pressure US Ext Lower Arterial bilat w pressure US Please refer to heart lab report, located under Vascular in [facility]. 08/23/2017 - - Electronically Signed by: Travis Maya 08/24/17 18:54 FINAL REPORT [facility] Thyroid US Thyroid US Thyroid ultrasound: Exam reason: 246.9 Unspecified Disorder of Thyroid See Clinic Indication The right thyroid lobe measures 2.2 x 0.8 x 1.2 cm. Left thyroid lobe measures 5.4 x 3.4 x 2.9 cm. Thyroid isthmus AP dimension is 2 mm which is normal. Colloid cysts are present at the superior pole of the right thyroid lobe measuring 6 x 4 x 6 mm and at the mid right thyroid lobe measuring 7 x 6 x 6 mm, respectively. A complex cystic mass is noted occupying the majority of the left thyroid lobe measuring 4.7 x 3.2 x 3.3 cm. IMPRESSION: 1. Allowing for differences in technique, there is no significant interval change noted when compared to the previous exam, 09/18/2013. SL:12 08/15/2014 - - Read by: Pranav Donahue MD Dictated Date/time: 08/15/14 15:47 Electronically Signed by: Pranav Donahue MD 08/15/14 15:55 FINAL REPORT [facility] URINALYSIS UA Bacteria Occasional /HPF *NA* (10/20/2012 05:05:00) None Seen 10/20/2012 [facility] URINALYSIS UA Mucus Few /LPF *NA* (10/20/2012 05:05:00) None Seen 10/20/2012 [facility] URINALYSIS UA Bili Negative *NA* (10/20/2012 05:05:00) Negative 10/20/2012 [facility] URINALYSIS UA Glucose Negative mg/dL *NA* (10/20/2012 05:05:00) Negative 10/20/2012 [facility] URINALYSIS UA Ketones Negative mg/dL *NA* (10/20/2012 05:05:00) Negative 10/20/2012 [facility] URINALYSIS UA Sq Epi Few /LPF *NA* (10/20/2012 05:05:00) Few 10/20/2012 [facility] URINALYSIS UA RBC null 0 - 2 10/20/2012 Normal [facility] URINALYSIS UA Nitrite Negative (10/20/2012 05:05:00) Negative 10/20/2012 Normal [facility] URINALYSIS UA Leuk Est Negative (10/20/2012 05:05:00) Negative 10/20/2012 Normal [facility] URINALYSIS UA Blood Negative (10/20/2012 05:05:00) Negative 10/20/2012 Normal [facility] URINALYSIS UA Urobilinogen <=1.0 mg/dL
*NA*
(10/20/2012 05:05:00) <sup> </sup> 0.1 - 1.0 10/20/2012 NA [facility] URINALYSIS UA Spec Grav 1.017 <=1.030 10/20/2012 Normal [facility] URINALYSIS UA Protein Negative mg/dL (10/20/2012 05:05:00) Negative 10/20/2012 Normal [facility] URINALYSIS UA pH 5.0 5.0 - 8.0 10/20/2012 Normal [facility] URINALYSIS UA Turbidity Slight *ABN* (10/20/2012 05:05:00) Clear 10/20/2012 ABN [facility] URINALYSIS UA Color Yellow *NA* (10/20/2012 05:05:00) Yellow 10/20/2012 NA [facility] Microbiology Culture: Urine 10/20/2012 [facility] URINALYSIS UA Bacteria None Seen (08/24/2011 07:09:00) None Seen 08/24/2011 Normal [facility] URINALYSIS UA RBC None Seen (08/24/2011 07:09:00) 0 - 2 08/24/2011 Normal [facility] URINALYSIS UA WBC 0-2 /HPF (08/24/2011 07:09:00) None Seen 08/24/2011 Normal [facility] URINALYSIS UA Sq Epi Rare /LPF (08/24/2011 07:09:00) Few 08/24/2011 Normal [facility] URINALYSIS UA Mucus Few /LPF (08/24/2011 07:09:00) None Seen 08/24/2011 Normal [facility] URINALYSIS UA Ketones Negative mg/dL *NA* (08/24/2011 07:09:00) Negative 08/24/2011 NA [facility] URINALYSIS UA Glucose Negative mg/dL (08/24/2011 07:09:00) Negative 08/24/2011 Normal [facility] URINALYSIS UA Spec Grav 1.025 <=1.030 08/24/2011 Normal [facility] URINALYSIS UA Color Yellow *NA* (08/24/2011 07:09:00) Yellow 08/24/2011 NA [facility] URINALYSIS UA Turbidity Clear (08/24/2011 07:09:00) Clear 08/24/2011 Normal [facility] URINALYSIS UA Urobilinogen 0.2 EU/dL 0.1 - 1.0 08/24/2011 [facility] URINALYSIS UA Nitrite Negative (08/24/2011 07:09:00) Negative 08/24/2011 [facility] URINALYSIS UA Protein Negative mg/dL (08/24/2011 07:09:00) Negative 08/24/2011 [facility] URINALYSIS UA pH 6.0 5.0 - 8.0 08/24/2011 [facility] URINALYSIS UA Blood Negative (08/24/2011 07:09:00) Negative 08/24/2011 [facility] URINALYSIS UA Leuk Est Negative (08/24/2011 07:09:00) Negative 08/24/2011 [facility] URINALYSIS UA Bili Negative *NA* (08/24/2011 07:09:00) Negative 08/24/2011 NA [facility] URINALYSIS UA Leuk Est Negative (04/02/2011 09:14:00) Negative 04/02/2011 [facility] URINALYSIS UA Nitrite Negative (04/02/2011 09:14:00) Negative 04/02/2011 [facility] URINALYSIS UA Protein Negative (04/02/2011 09:14:00) Negative 04/02/2011 [facility] URINALYSIS UA pH 5.5 5.0 - 8.0 04/02/2011 [facility] URINALYSIS UA Urobilinogen 0.2 EU/dL 0.1 - 1.0 04/02/2011 [facility] URINALYSIS UA Ketones Negative *NA* (04/02/2011 09:14:00) Negative 04/02/2011 [facility] URINALYSIS UA Glucose Negative (04/02/2011 09:14:00) Negative 04/02/2011 [facility] URINALYSIS UA Bili Negative *NA* (04/02/2011 09:14:00) Negative 04/02/2011 [facility] [place] URINALYSIS UA Spec Grav >=1.030 *ABN* (04/02/2011 09:14:00) <=1.030 04/02/2011 [facility]N [facility] URINALYSIS UA Turbidity Slight Cloudy (04/02/2011 09:14:00) Clear 04/02/2011 [facility] URINALYSIS UA Color Yellow *NA* (04/02/2011 09:14:00) Yellow 04/02/2011 NA [facility] URINALYSIS UA Blood Trace *ABN* (04/02/2011 09:14:00) Negative 04/02/2011 [facility]N [facility] URINALYSIS UA Bacteria None Seen (04/02/2011 09:14:00) None Seen 04/02/2011 Normal [facility] URINALYSIS UA RBC None Seen (04/02/2011 09:14:00) 0 - 2 04/02/2011 Normal [facility] URINALYSIS UA WBC 0-2 /HPF (04/02/2011 09:14:00) None Seen 04/02/2011 Normal [facility] URINALYSIS UA Sq Epi Occasional /LPF (04/02/2011 09:14:00) Few 04/02/2011 Normal [facility] Microbiology Culture: Urine 04/02/2011 [facility] Vital Signs Vital Sign Value Date Comments Source Height 165.1 cm 10/20/2012 [facility] Weight 102.727 10/20/2012 [facility] Height 165.10 cm 08/24/2011 [facility] Weight 102.273 08/24/2011 [facility] Systolic (mm Hg) 146 04/02/2011 [facility] Diastolic (mm Hg) 80 04/02/2011 [facility] Respitory Rate 16 04/02/2011 [facility] Heart Rate 70 04/02/2011 [facility] Temperature Oral (F) 97.9 F 04/02/2011 [facility] Systolic (mm Hg) 152 04/02/2011 [facility] Heart Rate 68 04/02/2011 [facility] Respitory Rate 18 04/02/2011 [facility] Diastolic (mm Hg) 88 04/02/2011 [facility] Temperature Oral (F) 98.1 F 04/02/2011 [facility] Height 165.10 cm 04/02/2011 [facility] Weight 100.000 04/02/2011 [facility] Respitory Rate 18 04/02/2011 [facility] Diastolic (mm Hg) 84 04/02/2011 [facility] Heart Rate 69 04/02/2011 [facility] Temperature Oral (F) 97.5 F 04/02/2011 [facility] Systolic (mm Hg) 147 04/02/2011 [facility] Encounters Location Location Details Encounter Type Encounter Number Reason For Visit Attending Provider ADM Date DC Date Status Source [facility] Emergency [id number] ZEE MONTEIRO 04/02/2011 04/02/2011 Active [facility] Emergency [id number] MARTIN SANCHEZ 08/24/2011 08/24/2011 Active [facility] Emergency [id number] GRAHAM RIOS 10/20/2012 10/20/2012 Active [facility] [id number] Adama Galarza 08/15/2014 08/16/2014 [facility] [id number] Jim Villegas 08/23/2017 08/24/2017 [facility] Procedures Procedure Code Date Perfomer Comments Source
--- OUTSIDE RECORDS SUMMARY | 2018-01-25 13:12 | XMS REPORT | Clinical Summary ---
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 mg per tablet lisinopril Take 40 mg by mouth Active (PRINIVIL,ZESTRIL) 40 mg daily. tablet nitrofurantoin Daily Active (MACRODANTIN) 100 MG capsule cefpodoxime (VANTIN) 100 12/04/19 Active MG tablet 18 naproxen sodium (ALEVE) Take 1 tablet (220 mg 20 tablet 0 12/08/19 12/08/19 Active 220 MG tabletIndications: total) by mouth 2 (two) 18 19 Arthralgia of right times a day with meals. temporomandibular joint azelastine (ASTELIN) 137 2 sprays into each 30 mL 2 12/31/19 12/31/19 mcg (0.1 %) nasal nostril 2 (two) times a 17 18 sprayIndications: day. Use in each nostril Seasonal allergic as directed rhinitis due to pollen azithromycin (ZITHROMAX) Take 2 tablets the first 6 tablet 0 11/13/19 11/17/19 250 MG tabletIndications: day, then 1 tablet daily 18 18 Nasal congestion for 4 days. Hospital, Clinic, or Ordered Dose Route Frequency Start End Date Status Other Facility Date Administered Medication triamcinolone acetonide 40 mg IM once 12/31/19 01/11/20 Discontin (KENALOG-40) injection 40 17 18 ued mgIndications: Seasonal allergic rhinitis due to pollen triamcinolone acetonide 40 mg IM once 01/11/20 01/11/20 Ended (KENALOG-40) injection 40 18 18 mgIndications: Nasal congestion Active Problems Problem Noted Date Nasal congestion 11/12/2017 Seasonal allergic rhinitis due to pollen 12/30/2016 Tinnitus 11/26/2016 Thyroid nodule 11/26/2016 Sensorineural hearing loss, bilateral 11/26/2016 Encounters Date Type Specialty Care Team Description 01/25/2018 [facility] Radiology Adama Galarza MD Thyroid nodule Encounter 01/10/2018 Office Visit Otolaryngology Adama Galarza MD Chronic seasonal allergic rhinitis due to pollen (Primary Dx); Nasal congestion; Thyroid nodule 12/07/2017 Office Visit Otolaryngology Adama Galarza MD Arthralgia of right temporomandibular joint (Primary Dx) 11/12/2017 Office Visit Otolaryngology Adama Galarza MD Nasal congestion (Primary Dx); Thyroid nodule after 01/19/2017 Social History Tobacco Use Types Packs/Day Years Used Date Never Smoker Smokeless Tobacco: Never Used Alcohol Use Drinks/Week oz/Week Comments No Sex Assigned at Date Recorded Not on file Last Filed Vital Signs Vital Sign Reading Time Taken Blood Pressure - - Pulse - - Temperature - - Respiratory Rate - - Oxygen Saturation - - Inhaled Oxygen - - Concentration Weight 97.1 kg (214 lb) 01/10/2018 9:50 AM CDT Height 165.1 cm (5' 5") 01/10/2018 9:50 AM CDT Body Mass Index 35.61 01/10/2018 9:50 AM CDT Plan of Treatment Health Maintenance Due Date Last Done Comments BREAST CANCER SCREENING 1992 COLON CANCER SCREENING 1992 SHINGRIX VACCINE (#1) 1992 ZOSTER VACCINE 2002 PNEUMOCOCCAL 12/21/2007 POLYSACCHARIDE VACCINE AGE 65 AND OVER PNEUMOCOCCAL-13 12/21/2007 INFLUENZA VACCINE 11/10/2017 Results Not on fileafter 01/19/2017 Insurance Payer Benefit Subscriber ID Type Phone Address Plan / Group [employer] xxxxxxxxx [facility]
== END 2018-01-20 17:55 | disposition home or self-care (01) ==
LOC: ER 16:14
DX: R30.0 Dysuria (principal); N30.90 Cystitis, unspecified without hematuria
CPT/HCPCS: 81001; 99283

== ENCOUNTER 2018-04-13 07:51 | Emergency (ER) | payer MEDICARE, OTHER ==
[~2018-04-13] VITALS: Ht 165.1 cm; Wt 97.1 kg
--- OUTSIDE RECORDS SUMMARY | 2018-04-13 07:56 | XMS REPORT | Clinical Summary ---
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 Active bimatoprost (LUMIGAN) 1 drop 0 0.03 % ophthalmic drops nightly. Active sitaGLIPtin (JANUVIA) 50 Take 50 mg by 0 MG tablet mouth daily. Active lovastatin (MEVACOR) 40 40 mg. 0 MG tablet 7 Active losartan (COZAAR) 100 MG 100 mg. 0 tablet 7 Active famotidine (PEPCID) 40 MG 40 mg. 3 tablet 7 Active amLODIPine (NORVASC) 5 mg 5 mg. 0 tablet 7 Active sulfamethoxazole-trimetho Take 1 tablet 0 prim (BACTRIM DS) 800-160 by mouth 2 mg per tablet (two) times a day. Active lisinopril Take 40 mg by 0 (PRINIVIL,ZESTRIL) 40 mg mouth daily. tablet Active nitrofurantoin Daily 0 (MACRODANTIN) 100 MG capsule Active cefpodoxime (VANTIN) 100 0 201 MG tablet 8 12/07/2018 Active naproxen sodium (ALEVE) Take 1 tablet 20 tablet 0 220 MG tabletIndications: (220 mg 8 Arthralgia of right total) by temporomandibular joint mouth 2 (two) times a day with meals. 12/30/2017 azelastine (ASTELIN) 137 2 sprays into 30 mL 2 mcg (0.1 %) nasal each nostril 7 sprayIndications: 2 (two) times Seasonal allergic a day. Use in rhinitis due to pollen each nostril as directed 11/16/2017 azithromycin (ZITHROMAX) Take 2 6 tablet 0 250 MG tabletIndications: tablets the 8 Nasal congestion first day, then 1 tablet daily for 4 days. Status Hospital, Clinic, or Ordered Dose Route Frequency Start End Date Other Facility Date Administered Medication Discontinued triamcinolone acetonide 40 mg IM once 12/31/19 (KENALOG-40) injection 40 17 8 mgIndications: Seasonal allergic rhinitis due to pollen Ended triamcinolone acetonide 40 mg IM once 01/11/20 (KENALOG-40) injection 40 18 8 mgIndications: Nasal congestion Active Problems Problem Noted Date Nasal congestion 11/12/2017 Seasonal allergic rhinitis due to pollen 12/30/2016 Tinnitus 11/26/2016 Thyroid nodule 11/26/2016 Sensorineural hearing loss, bilateral 11/26/2016 Encounters Care Team Description Date Type Specialty Adama Galarza MD Thyroid nodule 01/25/2018 Hospital Radiology Encounter Adama Galarza MD Chronic seasonal allergic rhinitis due to pollen (Primary Dx); Nasal congestion; Thyroid nodule 01/10/2018 Office Visit Otolaryngology Adama Galarza MD Arthralgia of right temporomandibular joint (Primary Dx) 12/07/2017 Office Visit Otolaryngology Adama Galarza MD Nasal congestion (Primary Dx); Thyroid nodule 11/12/2017 Office Visit Otolaryngology after 04/12/2017 Social History Date Tobacco Use Types Packs/Day Years Used Never Smoker Smokeless Tobacco: Never Used Alcohol Use Drinks/Week oz/Week Comments No Sex Assigned at Date Recorded Not on file Industry Job Start Date Occupation Not on file Not on file Not on file Travel End Travel History Travel Start No recent travel history available. Last Filed Vital Signs Time Taken Vital Sign Reading - Blood Pressure - - Pulse - - Temperature - - Respiratory Rate - - Oxygen Saturation - - Inhaled Oxygen - Concentration 01/10/2018 9:50 AM CDT Weight 97.1 kg (214 lb) 01/10/2018 9:50 AM CDT Height 165.1 cm (5' 5") 01/10/2018 9:50 AM CDT Body Mass Index 35.61 Plan of Treatment Health Maintenance Due Date Last Done Comments BREAST CANCER SCREENING 1992 COLON CANCER SCREENING 1992 SHINGLES VACCINES (1 of 1992 2) PNEUMOCOCCAL 12/21/2007 POLYSACCHARIDE VACCINE AGE 65 AND OVER PNEUMOCOCCAL-13 12/21/2007 INFLUENZA VACCINE 11/10/2017 Procedures Comments Procedure Name Priority Date/Time Associated Diagnosis US THYROID BIOPSY Routine 01/25/2018 Thyroid nodule 12:00 PM CDT CYTOLOGY Routine 01/25/2018 (NON-GYNECOLOGICAL) 11:30 AM CDT REQUEST after 04/12/2017 Results * US Thyroid Biopsy (01/25/2018 12:00 PM CDT) Narrative Performed At Procedure: RADIANT US THYROID BIOPSY Preprocedure Diagnosis: E04.1 Nontoxic single thyroid nodule, Evaluation of the location & characteristics of palpable neck masses. Post Procedure Diagnosis: Same Performing Radiologist: Vicente Decker MD Anesthesia Type: Lidocaine 1% buffered with bicarbonate for local anesthesia. Technique: Written informed consent was obtained prior to the procedure. The patient was brought to the ultrasound suite and placed supine on the table. A preprocedure time out was performed.The neck was prepped and draped in usual sterile fashion. 1% lidocaine was used for local anesthesia. Under real-time ultrasound guidance, 5 25-gauge fine-needle aspiration specimens were obtained from a 4 cm complex heterogeneous mixed solid and cystic left thyroid nodule and sent to pathology for analysis. Specimens were determined adequate at the time of the procedure. The patient tolerated the procedure well without immediate complication. Complications: None Estimated Blood Loss: Less than 1 mL Blood/Blood Products Administered: None Grafts/Implants: As described in the above report. Impression: Uncomplicated ultrasound guided thyroid nodule biopsy. [id number] Procedure Note Interface, Radiology Results Incoming - 01/25/2018 1:48 PM CDT Procedure: US THYROID BIOPSY Preprocedure Diagnosis: E04.1 Nontoxic single thyroid nodule, Evaluation of the location & characteristics of palpable neck masses. Post Procedure Diagnosis: Same Performing Radiologist: Vicente Decker MD Anesthesia Type: Lidocaine 1% buffered with bicarbonate for local anesthesia. Technique: Written informed consent was obtained prior to the procedure. The patient was brought to the ultrasound suite and placed supine on the table. A preprocedure time out was performed. The neck was prepped and draped in usual sterile fashion. 1% lidocaine was used for local anesthesia. Under real-time ultrasound guidance, 5 25-gauge fine-needle aspiration specimens were obtained from a 4 cm complex heterogeneous mixed solid and cystic left thyroid nodule and sent to pathology for analysis. Specimens were determined adequate at the time of the procedure. The patient tolerated the procedure well without immediate complication. Complications: None Estimated Blood Loss: Less than 1 mL Blood/Blood Products Administered: None Grafts/Implants: As described in the above report. Impression: Uncomplicated ultrasound guided thyroid nodule biopsy. [id number] Performing Organization Address [facility] Phone Number [facility] [address] [place] [address] * Cytology (non-gynecological) request (01/25/2018 11:30 AM CDT) [facility] DEPARTMENT OF PATHOLOGY AND GENOMIC MEDICINE Cytology See link below for PDF Lab [facility] DEPARTMENT OF (non-gynecological) Report PATHOLOGY AND report GENOMIC MEDICINE Result status This is Final Report for [facility] DEPARTMENT OF [id number] PATHOLOGY AND GENOMIC MEDICINE Performing Organization Address [facility] Phone Number [facility] [place] [address] [place] [address] PATHOLOGY AND GENOMIC MEDICINE after 04/12/2017 Insurance Payer Benefit Subscriber ID Type Phone Address Plan / Group [employer] xxxxxxxxx [facility] Advance Directives Patient has advance care planning documents on file. For more information, shima reddy contact: Roni Gomez [address] [place] [address]
--- NOTE | 2018-04-13 08:25 | NUR ---
DR GOODMAN AT BEDSIDE FOR PATIENT EVAL.
[2018-04-13 08:32] LABS: CLARITY,URINE CLEAR (CLEAR); COLOR,URINE YELLOW (YELLOW)
[2018-04-13 08:33] LABS: BILIRUBIN,URINE NEGATIVE (NEGATIVE); KETONES,URINE NEGATIVE (NEGATIVE); LEUKOCYTE ESTERASE ,URINE NEGATIVE (NEGATIVE); NITRITE,URINE NEGATIVE (NEGATIVE); PROTEIN,URINE DIPSTICK NEGATIVE (NEGATIVE); URINE UROBILINOGEN 0.2 mg/dL (0.2 - 1)
[2018-04-13 08:40] LABS: EPITHELIAL CELLS,URINE FEW /LPF
--- NOTE | 2018-04-13 10:02 | Diagnostic Imaging Report ---
ADDENDUM #1 ADDENDUM: Dose modulation, iterative reconstruction, and/or weight based adjustment of the mA/kV was utilized to reduce the radiation dose to as low as reasonably achievable. Signed by: Dr. Kaylee Blanco MD on 04/13/2018 5:24 PM ORIGINAL REPORT EXAM: CT Abdomen and Pelvis WITHOUT contrast INDICATION: Renal stone. COMPARISON: [facility] 03/18/2017, CT chest 10/11/2016, and CT abdomen/pelvis 03/08/2014. TECHNIQUE: Abdomen and pelvis were scanned utilizing a multidetector helical scanner from the lung base to the pubic symphysis without administration of IV contrast. Absence of intravenous contrast decreases sensitivity for detection of focal lesions and vascular pathology. Coronal and sagittal reformations were obtained. Routine protocol was performed. RADIATION DOSE: Total DLP: 755.7 mGy*cm COMPLICATIONS: None FINDINGS: LINES and TUBES: None. LOWER THORAX: Large hiatal hernia. Coronary atherosclerosis. HEPATOBILIARY: No focal hepatic lesions. No biliary ductal dilation. Status post cholecystectomy. Unchanged appearance of hepatic dome hypodense lesions with peripheral calcification. SPLEEN: No splenomegaly. PANCREAS: No focal masses or ductal dilatation. ADRENALS: No adrenal nodules KIDNEYS/URETERS: No hydronephrosis. No cystic or solid mass lesions. There is a 2 mm nonobstructing right lower pole renal stone on series 3, image 90. Right mid pole simple appearing renal cyst. GI TRACT: No abnormal distention, wall thickening, or evidence of bowel obstruction. Appendix is normal. There is scattered colonic diverticulosis without CT evidence of diverticulitis. PELVIC ORGANS/BLADDER: Unremarkable. LYMPH NODES: No lymphadenopathy. VESSELS: Moderate atherosclerotic calcifications of the abdominal aorta and branch vessels. PERITONEUM / RETROPERITONEUM: No free air or fluid. BONES/SOFT TISSUES: No acute bony abnormality. Generative changes of the visualized spine. IMPRESSION: A 2 mm nonobstructing right lower pole renal stone. Large hiatal hernia. Unchanged appearance of hepatic dome hypodense lesions with peripheral calcification, which are likely benign. Signed by: Dr. Kaylee Blanco MD on 04/13/2018 9:58 AM
== END 2018-04-13 10:53 | disposition home or self-care (01) ==
LOC: ER 07:51
DX: R30.0 Dysuria (principal); R10.2 Pelvic and perineal pain; I10 Essential (primary) hypertension; E11.9 Type 2 diabetes mellitus without complications; K21.9 Gastro-esophageal reflux disease without esophagitis; H40.9 Unspecified glaucoma
CPT/HCPCS: 74176; 81001; 87086; 99283

== ENCOUNTER 2018-06-30 09:29 | Emergency (ER) | payer OTHER ==
[~2018-06-30] VITALS: Ht 165.1 cm; Wt 97.1 kg
--- OUTSIDE RECORDS SUMMARY | 2018-06-30 09:33 | XMS REPORT | Clinical Summary ---
Author Author [facility] Address Unknown Phone Unavailable Care Team Providers Care Catholic Priest Name Role Phone Clement Mann MD PCP [...] Thyroid nodule 11/12/2017 Office Visit Otolaryngology after 06/29/2017 Social History Date Tobacco Use Types Packs/Day [...] 1992 COLON CANCER SCREENING 1992 SHINGLES VACCINES (#1) 1992 65+ PNEUMOCOCCAL VACCINE 12/21/2007 (1 of 2 - PCV13) PNEUMOCOCCAL 12/21/2007 POLYSACCHARIDE VACCINE AGE 65 AND OVER INFLUENZA VACCINE 11/10/2017 Procedures Comments Procedure Name Priority Date/Time Associated Diagnosis US THYROID BIOPSY CORE Routine 01/25/2018 Thyroid nodule 12:00 PM CDT CYTOLOGY Routine 01/25/2018 (NON-GYNECOLOGICAL) 11:30 AM CDT REQUEST after 06/29/2017 Results * US Thyroid Biopsy (01/25/2018 12:00 [...] Impression: Uncomplicated ultrasound guided thyroid nodule biopsy. [id number] Procedure Note Interface, Radiology Results Incoming - [...] Impression: Uncomplicated ultrasound guided thyroid nodule biopsy. [id number] Performing Organization Address City/[facility] Phone Number [facility] [address] [place] [address] * Cytology (non-gynecological) request (01/25/2018 11:30 AM CDT) [facility] DEPARTMENT OF PATHOLOGY AND GENOMIC MEDICINE Cytology See link below for PDF Lab [facility] DEPARTMENT OF (non-gynecological) Report PATHOLOGY AND report GENOMIC MEDICINE Result status This is Final Report for [facility] DEPARTMENT OF [id number] PATHOLOGY AND GENOMIC MEDICINE Performing Organization Address City/[facility] Phone Number [facility] [place] [place] [address] [place] [address] PATHOLOGY AND GENOMIC MEDICINE after 06/29/2017 Insurance Payer Benefit Subscriber ID Type Phone Address Plan / Group TEXANPLUS TEXANPLUS xxxxxxxxx [facility] Advance Directives Patient has advance care planning documents on file. For more information, shima reddy contact: Roni Gomez [address] [place] [address]
[2018-06-30] MEDS ORDERED: SODIUM CHLORIDE 0.9% 1000ML 1,000 ML IV SCH (10:00)
--- NOTE | 2018-06-30 10:31 | Diagnostic Imaging Report ---
Examination: Single AP view of the chest. COMPARISON: 12/03/2017 INDICATION: Shortness of breath DISCUSSION: Lungs are well-inflated. Persistent linear opacities in the left mid and bilateral lower lung zones likely fibrotic change or atelectasis. No new consolidation, pleural effusion, or pneumothorax. Stable cardiomediastinal contour with large hiatal hernia. No overt pulmonary edema. No acute osseous abnormality. IMPRESSION: Scattered foci of linear scar or subsegmental atelectasis in the mid and lower lung zones, unchanged relative to 12/03/2017. No new consolidations. Large hiatal hernia. Signed by: Dr. Valdo Barragan M.D. on 06/30/2018 10:28 AM
[2018-06-30 11:49] VITALS: BP 147/84
== END 2018-06-30 12:05 | disposition home or self-care (01) ==
LOC: FSED 09:29
DX: R06.09 Other forms of dyspnea (principal); E86.0 Dehydration; I10 Essential (primary) hypertension; E11.65 Type 2 diabetes mellitus with hyperglycemia; E78.5 Hyperlipidemia, unspecified
CPT/HCPCS: 71045; 80053; 81003; 83880; 84484; 85025; 93005; 99284

== ENCOUNTER 2018-08-31 07:11 | Emergency (ER) | payer OTHER ==
[~2018-08-31] VITALS: Ht 165.1 cm; Wt 95.3 kg
--- OUTSIDE RECORDS SUMMARY | 2018-08-31 07:16 | XMS REPORT | Clinical Summary ---
Author Author [facility] Address Unknown Phone Unavailable Care Team Providers Care Painter Rough Name Role Phone Clement Mann MD PCP [...] Thyroid nodule 11/12/2017 Office Visit Otolaryngology after 08/30/2017 Social History Date Tobacco Use Types Packs/Day [...] VACCINE AGE 65 AND OVER INFLUENZA VACCINE 11/10/2018 Procedures Comments Procedure Name Priority Date/Time Associated Diagnosis US THYROID BIOPSY CORE Routine 01/25/2018 Thyroid nodule 12:00 PM CDT CYTOLOGY Routine 01/25/2018 (NON-GYNECOLOGICAL) 11:30 AM CDT REQUEST after 08/30/2017 Results * US Thyroid Biopsy (01/25/2018 12:00 PM CDT) Specimen Narrative Performed At Procedure: RADIANT US THYROID [...] Impression: Uncomplicated ultrasound guided thyroid nodule biopsy. [id number] Procedure Note Interface, Radiology Results Incoming - [...] Impression: Uncomplicated ultrasound guided thyroid nodule biopsy. [id number] Performing Organization Address City/[facility]/Zipcode Phone Number [facility] [address] [place] [address] * Cytology (non-gynecological) request (01/25/2018 11:30 AM CDT) [facility] DEPARTMENT OF PATHOLOGY AND GENOMIC MEDICINE Cytology See link below for PDF Lab [facility] (non-gynecologi Report DEPARTMENT OF [facility]) report PATHOLOGY AND GENOMIC MEDICINE Result status This is Final Report for [facility] [id number] DEPARTMENT OF PATHOLOGY AND GENOMIC MEDICINE Specimen Performing Organization Address City/[facility]/Zipcode Phone Number [facility] [place] [address] [place] [id number] PATHOLOGY AND GENOMIC MEDICINE after 08/30/2017 Insurance Type Payer Benefit Subscriber ID Effective Phone Address Plan / Dates Group O TEXANPLUS TEXANPLUS xxxxxxxxx 2016-P MCR resent Advance Directives Patient has advance care planning documents on file. For more information, shima reddy contact: [facility] [address] [place] [address]
[2018-08-31] MEDS ORDERED: LOPERAMIDE HCL 2 MG CAP PO ONE (08:00)
[2018-08-31 08:01] LABS: BASOPHILS # (AUTO) 0.1 (0.0-0.1); BASOPHILS % 0.7 % (0.0-1.0); EOSINOPHILS # (AUTO) 0.1 (0.0-0.4); HEMOGLOBIN 10.5 g/dL (12.0-16.0); LYMPHOCYTES # (AUTO) 1.3 (1.0-3.2); LYMPHOCYTES % 18.7 % (18.0-39.1); MEAN CORPUSCULAR HGB CONC 29.2 g/dL (31-35); MEAN CORPUSCULAR VOLUME 78.8 fL (81-99); MONOCYTES # (AUTO) 0.7 (0.2-0.8); NEUTROPHILS # (AUTO) 4.9 (2.1-6.9); NEUTROPHILS % 69.2 % (38.7-80.0); PLATELET COUNT 286 x10e3/uL (140-360); RED BLOOD COUNT 4.57 x10e6/uL (3.6-5.1); RED CELL DISTRIBUTION WIDTH 15.9 % (11.7-14.4)
[2018-08-31 08:18] LABS: ALANINE AMINOTRANSFERASE 22 IU/L (0-55); ALBUMIN 3.9 g/dL (3.5-5.0); ALBUMIN/GLOBULIN RATIO 1.2 (0.8-2.0); ALKALINE PHOSPHATASE 79 IU/L (40-150); ANION GAP 14.7 mmol/L (8-16); BLOOD UREA NITROGEN 9 mg/dL (7-26); BUN/CREATININE RATIO 13 (6-25); CALCIUM 9.1 mg/dL (8.4-10.2); CARBON DIOXIDE 26 mmol/L (22-29); CHLORIDE 102 mmol/L (98-107); EST GLOMERULAR FILTRATION RATE > 60 ML/MIN (60-); GLUCOSE 132 mg/dL (74-118); POTASSIUM 3.7 mmol/L (3.5-5.1); SODIUM 139 mmol/L (136-145)
[2018-08-31 08:25] LABS: BILIRUBIN,URINE NEGATIVE (NEGATIVE); CLARITY,URINE CLEAR (CLEAR); COLOR,URINE YELLOW (YELLOW); KETONES,URINE NEGATIVE (NEGATIVE); LEUKOCYTE ESTERASE ,URINE NEGATIVE (NEGATIVE); NITRITE,URINE NEGATIVE (NEGATIVE); PROTEIN,URINE DIPSTICK TRACE (NEGATIVE); URINE UROBILINOGEN 0.2 mg/dL (0.2 - 1)
[2018-08-31] MEDS ORDERED: LACTOBACILLUS ACIDOPHILUS CAPSULE PO ONE (08:30)
[2018-08-31] MEDS ORDERED: SCOPOLAMINE 1.5 MG PATCH TOP ONE (08:30)
[2018-08-31 08:33] LABS: EPITHELIAL CELLS,URINE MODERATE /LPF; TRANSITIONAL EPI CELLS,URINE RARE
[2018-08-31 08:40] VITALS: BP 135/75
[2018-08-31] MEDS ORDERED: TRANSDERM-SCOP1 EACH TD (08:54)
[2018-08-31] MEDS ORDERED: ACIDOPHILUS1 EAC1 PO (08:54)
[2018-08-31] MEDS ORDERED: LOPERAMIDE2 MG PO (08:54)
== END 2018-08-31 09:01 | disposition home or self-care (01) ==
LOC: ER 07:11
DX: R42 Dizziness and giddiness (principal); R53.1 Weakness; R51 Headache; R19.7 Diarrhea, unspecified; D64.9 Anemia, unspecified
CPT/HCPCS: 36415; 80053; 81001; 85025; 99284

== ENCOUNTER 2018-10-24 03:52 | Emergency (ER) | payer OTHER ==
[~2018-10-24] VITALS: Ht 165.1 cm; Wt 95.3 kg
[~2018-10-24 03:52] MED LIST changes: +ACIDOPHILUS1 EAC1 PO; +LOPERAMIDE2 MG PO; +TRANSDERM-SCOP1 EACH TD
--- OUTSIDE RECORDS SUMMARY | 2018-10-24 03:59 | XMS REPORT | Clinical Summary ---
Author Author [facility] Organization [facility] Address Unknown Phone Unavailable Care Team Providers Care Payroll Assistant Name Role Phone Clement Mann MD PCP Allergies Comments Active Allergy Reactions Severity Noted Date Adhesive Tape-Silicones Other (See 11/26/2016 Comments) cipro med Ciprofibrate 11/26/2016 Ciprofloxacin Swelling Low 01/20/2018 Other reaction(s): vomiting Coffee Medium 04/13/2018 Other reaction(s): VOMITING Egg Medium 01/20/2018 Other reaction(s): DIZZY Esomeprazole Magnesium Low 11/26/2016 Ragweed Pollen 12/30/2016 Medications End Date [...] 2 (two) times a day with meals. Active atorvastatin (LIPITOR) 40 TK 1 T PO QD 1 MG tablet 9 Active COMBIGAN 0.2-0.5 % INT 1 GTT IN 0 ophthalmic solution OU BID 9 Active SITagliptin-metformin Twice A Day 0 (JANUMET) 50-1,000 mg per tablet Active calcium carbonate/vitamin Twice A Day 0 D3 (CALCIUM 500 + D ORAL) Active cyanocobalamin Daily 0 (cyanocobalamin) 1000 MCG tablet Active aspirin 81 mg chewable Daily 0 tablet 12/30/2017 azelastine (ASTELIN) 137 2 sprays into [...] Nasal congestion Active Problems Problem Noted Date Unsteadiness 10/12/2018 Nasal congestion 11/12/2017 Seasonal allergic rhinitis due to pollen 12/30/2016 Tinnitus 11/26/2016 Thyroid nodule 11/26/2016 Sensorineural hearing loss, bilateral 11/26/2016 Encounters Care Team Description Date Type Specialty Adama Galarza MD Unsteadiness (Primary Dx); Sensorineural hearing loss, bilateral; Tinnitus of left ear; Thyroid nodule 10/12/2018 Office Visit Otolaryngology Elizabeth Cassidy MD Shortness of breath (Primary Dx) 09/22/2018 Transcribe Access Orders Adama Galarza MD Thyroid nodule 01/25/2018 Hospital Radiology Encounter Adama Galarza MD Chronic seasonal allergic rhinitis due to pollen (Primary Dx); Nasal congestion; Thyroid nodule 01/10/2018 Office Visit Otolaryngology Adama Galarza MD Arthralgia of right temporomandibular joint (Primary Dx) 12/07/2017 Office Visit Otolaryngology Adama Galarza MD Nasal congestion (Primary Dx); Thyroid nodule 11/12/2017 Office Visit Otolaryngology after 10/23/2017 Social History Date Tobacco Use Types Packs/Day [...] Saturation - - Inhaled Oxygen - Concentration 10/12/2018 8:48 AM CDT Weight 95.8 kg (211 lb 3.2 oz) 10/12/2018 8:48 AM CDT Height 165.1 cm (5' 5") 10/12/2018 8:48 AM CDT Body Mass Index 35.15 Plan of Treatment Care Team Description Date [place] [address] [facility] [address] [place] [address] [phone] 11/07/2018 Appointment Radiology Health Maintenance Due Date Last Done Comments BREAST CANCER SCREENING 1992 COLONOSCOPY SCREENING 1992 SHINGLES VACCINES (#1) 1992 65+ PNEUMOCOCCAL VACCINE 12/21/2007 (1 of 2 - PCV13) INFLUENZA VACCINE 11/10/2018 Procedures Comments Procedure Name Priority Date/Time Associated Diagnosis COMPREHENSIVE HEARING Routine 10/12/2018 Unsteadiness TEST 9:22 AM CDT US THYROID BIOPSY CORE Routine 01/25/2018 Thyroid nodule 12:00 PM CDT CYTOLOGY Routine 01/25/2018 (NON-GYNECOLOGICAL) 11:30 AM CDT REQUEST after 10/23/2017 Results * Comprehensive hearing test (10/12/2018 9:22 AM CDT) * US Thyroid Biopsy (01/25/2018 12:00 PM [...] Impression: Uncomplicated ultrasound guided thyroid nodule biopsy. [id number] Procedure Note Interface, Radiology Results Incoming - [...] Impression: Uncomplicated ultrasound guided thyroid nodule biopsy. [id number] Performing Organization Address City/State/Zipcode Phone Number [facility] [address] [place] [address] * Cytology (non-gynecological) request (01/25/2018 11:30 AM CDT) [facility] DEPARTMENT OF PATHOLOGY AND GENOMIC MEDICINE Cytology See link below for PDF Lab [facility] (non-gynecologi Report DEPARTMENT OF [facility]) report PATHOLOGY AND GENOMIC MEDICINE Result status This is Final Report for [facility] [id number] DEPARTMENT OF PATHOLOGY AND GENOMIC MEDICINE Specimen Performing Organization Address City/State/Zipcode Phone Number [facility] DEPARTMENT [address] [place] [address] PATHOLOGY AND GENOMIC MEDICINE after 10/23/2017 Insurance Type Payer Benefit Subscriber ID Effective Phone Address Plan / Dates Group HMO TEXANPLUS TEXANPLUS xxxxxxxxx 2016-P CORIN resent Advance Directives Patient has advance care planning documents on file. For more information, shima reddy contact: Roni Gomez [address] [place] [address]
--- OUTSIDE RECORDS SUMMARY | 2018-10-24 04:00 | XMS REPORT | Continuity of Care Document ---
Author Author [employer] Address Unknown Phone Unavailable Care Team Providers Care Cocoa Mill Operator Name Role Phone zanda Unavailable Unavailable Problems Problem Status Onset Date Classification Date Reported Comments Source E11.9 Active 08/11/2017 [facility] DISORDER OF THYROID 246.9 Active 08/06/2014 [facility] 246.9 ABNORMAL THYROID EXAM Active 11/22/2013 [facility] URINARY SYMPTOMS Active 10/20/2012 [facility] UTI Active 08/24/2011 [facility] SIDE PAIN Active 04/02/2011 [facility] Medications Medication Details Route Status Patient Instructions Ordering Provider Order Date Source Bactrim oral tablet 1 tab, PO, BID, 14 tab, Substitution Allowed, Maintenance PO Active [facility] 08/24/2011 [facility] Pyridium 100 mg oral tablet 100 mg, 1 tab, PO, TID, PRN, 6 tab, Dysuria, Substitution Allowed PO Active [facility] 08/24/2011 [facility] Cipro 500 mg oral tablet 500 mg, 1 tab, PO, Q12H, 14 tab, Substitution Allowed, TAB PO Active [facility] 04/02/2011 [facility] Enablex 7.5 mg oral tablet, extended release 7.5 mg, 1 tab, PO, Daily, 30 tab, Substitution Allowed, ERTAB PO Active [facility] 04/02/2011 [facility] Allergies, Adverse Reactions, Alerts Substance Category Reaction Severity Reaction type Status Date Reported Comments Source Cipro Assertion Drug allergy Active [facility] Immunizations No Data Provided for This Section Results Order Name Results Value Reference Range Date Interpretation Comments Source URINALYSIS UA Bacteria Occasional /HPF *NA* (10/20/2012 05:05:00) None Seen 10/20/2012 [facility] URINALYSIS UA Mucus Few /LPF *NA* (10/20/2012 05:05:00) None Seen 10/20/2012 [facility] URINALYSIS UA Bili Negative *NA* (10/20/2012 05:05:00) Negative 10/20/2012 [facility] URINALYSIS UA Glucose Negative mg/dL *NA* (10/20/2012 05:05:00) Negative 10/20/2012 NA [facility] URINALYSIS UA Ketones Negative mg/dL *NA* (10/20/2012 05:05:00) Negative 10/20/2012 NA [facility] URINALYSIS UA Sq Epi Few /LPF *NA* (10/20/2012 05:05:00) Few 10/20/2012 NA [facility] URINALYSIS UA RBC <1 0 - 2 10/20/2012 Normal [facility] URINALYSIS UA Nitrite Negative (10/20/2012 05:05:00) Negative 10/20/2012 Normal [facility] URINALYSIS UA Leuk Est Negative (10/20/2012 05:05:00) Negative 10/20/2012 Normal [facility] URINALYSIS UA Blood Negative (10/20/2012 05:05:00) Negative 10/20/2012 Normal [facility] URINALYSIS UA Urobilinogen 0.1 - 1.0 10/20/2012 NA [facility] URINALYSIS UA Spec Grav 1.017 <=1.030 10/20/2012 Normal [facility] URINALYSIS UA Protein Negative mg/dL (10/20/2012 05:05:00) Negative 10/20/2012 Normal [facility] URINALYSIS UA pH 5.0 5.0 - 8.0 10/20/2012 Normal [facility] URINALYSIS UA Turbidity Slight *ABN* (10/20/2012 05:05:00) Clear 10/20/2012 ABN [facility] URINALYSIS UA Color Yellow *NA* (10/20/2012 05:05:00) Yellow 10/20/2012 NA [facility] Microbiology Culture: Urine 10/20/2012 [facility] URINALYSIS UA Bacteria None Seen (08/24/2011 07:09:00) None Seen 08/24/2011 Normal [facility] URINALYSIS UA RBC None Seen (08/24/2011 07:09:00) 0 - 2 08/24/2011 Normal [facility] URINALYSIS UA WBC 0-2 /HPF (08/24/2011 07:09:00) None Seen 08/24/2011 Normal [facility] URINALYSIS UA Sq Epi Rare /LPF (08/24/2011 07:09:00) Few 08/24/2011 [facility] URINALYSIS UA Mucus Few /LPF (08/24/2011 07:09:00) None Seen 08/24/2011 [facility] URINALYSIS UA Ketones Negative mg/dL *NA* (08/24/2011 07:09:00) Negative 08/24/2011 NA [facility] URINALYSIS UA Glucose Negative mg/dL (08/24/2011 07:09:00) Negative 08/24/2011 [facility] URINALYSIS UA Spec Grav 1.025 <=1.030 08/24/2011 [facility] URINALYSIS UA Color Yellow *NA* (08/24/2011 07:09:00) Yellow 08/24/2011 NA [facility] URINALYSIS UA Turbidity Clear (08/24/2011 07:09:00) Clear 08/24/2011 [facility] URINALYSIS UA Urobilinogen 0.2 0.1 - 1.0 08/24/2011 [facility] URINALYSIS [...] 04/02/2011 [facility] URINALYSIS UA Urobilinogen 0.2 0.1 - 1.0 04/02/2011 [facility] URINALYSIS UA Ketones Negative *NA* (04/02/2011 09:14:00) Negative 04/02/2011 NA [facility] URINALYSIS UA Glucose Negative (04/02/2011 09:14:00) Negative 04/02/2011 Normal [facility] URINALYSIS UA Bili Negative *NA* (04/02/2011 09:14:00) Negative 04/02/2011 [facility] URINALYSIS UA Spec Grav >=1.030 *ABN* (04/02/2011 09:14:00) <=1.030 04/02/2011 ABN [facility] URINALYSIS UA Turbidity Slight Cloudy (04/02/2011 09:14:00) Clear 04/02/2011 Normal [facility] URINALYSIS UA Color Yellow *NA* (04/02/2011 09:14:00) Yellow 04/02/2011 NA [facility] URINALYSIS UA Blood Trace *ABN* (04/02/2011 09:14:00) Negative 04/02/2011 ABN [facility] URINALYSIS UA Bacteria None Seen (04/02/2011 09:14:00) None Seen 04/02/2011 Normal [facility] URINALYSIS UA RBC None Seen (04/02/2011 09:14:00) 0 - 2 04/02/2011 Normal [facility] URINALYSIS UA WBC 0-2 /HPF (04/02/2011 09:14:00) None Seen 04/02/2011 Normal [facility] URINALYSIS UA Sq Epi Occasional /LPF (04/02/2011 09:14:00) Few 04/02/2011 Normal [facility] Microbiology Culture: Urine 04/02/2011 [facility] Pathology Reports No Data Provided for This Section Diagnostic Reports Report Value Date Source Ext Lower Arterial bilat w pressure US Please refer to heart lab report, located under Vascular in [facility]ARE[facility]. 08/23/2017 [facility] Thyroid US Thyroid ultrasound: Exam reason: 246.9 [...] to the previous exam, 09/18/2013. SL:12 08/15/2014 [facility] Consultation Notes No Data Provided for This Section Discharge Summaries No Data Provided for This Section History and Physicals No Data Provided for This Section Vital Signs Vital Sign Value Date Comments Source Height 165.1 cm 10/20/2012 [facility] Weight 102.727 10/20/2012 [facility] Height 165.10 cm 08/24/2011 [facility] Weight 102.273 08/24/2011 [facility] Systolic (mm Hg) 146 04/02/2011 [facility] Diastolic (mm Hg) 80 04/02/2011 [facility] Respitory Rate 16 04/02/2011 [facility] Heart Rate 70 04/02/2011 [facility] Temperature Oral (F) 97.9 F 04/02/2011 [facility] Systolic (mm Hg) 152 04/02/2011 [facility] Heart Rate 68 04/02/2011 [facility] Respitory Rate 18 04/02/2011 [facility] Diastolic (mm Hg) 88 04/02/2011 [facility] Temperature Oral (F) 98.1 F 04/02/2011 [facility] Height 165.10 cm 04/02/2011 [facility] Weight 100.000 04/02/2011 [facility] Respitory Rate 18 04/02/2011 [facility] Diastolic (mm Hg) 84 04/02/2011 [facility] Heart Rate 69 04/02/2011 [facility] Temperature Oral (F) 97.5 F 04/02/2011 [facility] Systolic (mm Hg) 147 04/02/2011 [facility] Encounters Location Location Details Encounter Type Encounter Number Reason For Visit Attending Provider ADM Date DC Date Status Source [facility] Emergency [id number] ZEE MONTEIRO 04/02/2011 04/02/2011 Discharged [facility] Emergency [id number] MARTIN SIKHISM 08/24/2011 08/24/2011 Discharged [facility] Emergency [id number] GRAHAM RIOS 10/20/2012 10/20/2012 Discharged [facility] Outpatient [id number] Adama Galarza 08/15/2014 08/16/2014 [facility] Outpatient [id number] Jim Villegas 08/23/2017 08/24/2017 [facility] Procedures No Data Provided for This Section Assessment and Plan No Data Provided for This Section Plan of Care No Data Provided for This Section Social History Social History Date Source No data available for this section 08/24/2017 [facility] Family History No Data Provided for This Section Advance Directives No Data Provided for This Section Functional Status No Data Provided for This Section
[2018-10-24 04:39] LABS: BASOPHILS % 0.4 % (0.0-1.0); EOSINOPHILS # (AUTO) 0.1 (0.0-0.4); EOSINOPHILS % 1.4 % (0.0-6.0); HEMATOCRIT 33.7 % (34.2-44.1); HEMOGLOBIN 9.7 g/dL (12.0-16.0); LYMPHOCYTES # (AUTO) 1.5 (1.0-3.2); LYMPHOCYTES % 20.1 % (18.0-39.1); MEAN CORPUSCULAR HEMOGLOBIN 22.2 pg (28-32); MEAN CORPUSCULAR HGB CONC 28.8 g/dL (31-35); MEAN CORPUSCULAR VOLUME 77.1 fL (81-99); MONOCYTES # (AUTO) 0.9 (0.2-0.8); MONOCYTES % 12.8 % (4.4-11.3); NEUTROPHILS # (AUTO) 4.8 (2.1-6.9); NEUTROPHILS % 64.6 % (38.7-80.0); PLATELET COUNT 281 x10e3/uL (140-360); RED BLOOD COUNT 4.37 x10e6/uL (3.6-5.1); RED CELL DISTRIBUTION WIDTH 15.9 % (11.7-14.4)
[2018-10-24 05:02] LABS: ALANINE AMINOTRANSFERASE 10 IU/L (0-55); ALBUMIN 3.9 g/dL (3.5-5.0); ALBUMIN/GLOBULIN RATIO 1.3 (0.8-2.0); ALKALINE PHOSPHATASE 80 IU/L (40-150); ANION GAP 15.7 mmol/L (8-16); BLOOD UREA NITROGEN 11 mg/dL (7-26); BUN/CREATININE RATIO 16 (6-25); CALCIUM 8.7 mg/dL (8.4-10.2); CARBON DIOXIDE 25 mmol/L (22-29); CHLORIDE 103 mmol/L (98-107); CREATINE KINASE 79 IU/L (29-168); CREATININE, SERUM 0.68 mg/dL (0.57-1.11); EST GLOMERULAR FILTRATION RATE > 60 ML/MIN (60-); GLUCOSE 147 mg/dL (74-118); POTASSIUM 3.7 mmol/L (3.5-5.1); SODIUM 140 mmol/L (136-145)
--- NOTE | 2018-10-24 05:56 | Diagnostic Imaging Report ---
EXAMINATION: CHEST 2 VIEWS INDICATION: Short of breath COMPARISON: Abdominal CT 04/13/2018, chest radiograph 06/30/2018 FINDINGS: PA and lateral views TUBES and LINES: None. LUNGS: Lungs are well inflated. There is mild prominence of the central pulmonary vasculature, consistent with pulmonary venous congestion. Mild bibasilar atelectasis. No consolidations. PLEURA: No pleural effusion or pneumothorax. HEART AND MEDIASTINUM: The cardiomediastinal silhouette is unremarkable. BONES AND SOFT TISSUES: No acute osseous lesion. Soft tissues are unremarkable. UPPER ABDOMEN: No free air under the diaphragm. Large hiatal hernia. IMPRESSION: Chronic scattered areas of subsegmental atelectasis/scarring and mild pulmonary vascular congestion. Large hiatal hernia. Signed by: Garth Merino DO on 10/24/2018 5:52 AM
== END 2018-10-24 06:21 | disposition home or self-care (01) ==
LOC: ER 03:52
DX: R06.09 Other forms of dyspnea (principal); K46.9 Unspecified abdominal hernia without obstruction or gangrene; I10 Essential (primary) hypertension; E11.9 Type 2 diabetes mellitus without complications; K21.9 Gastro-esophageal reflux disease without esophagitis; E78.5 Hyperlipidemia, unspecified
CPT/HCPCS: 36415; 71046; 80053; 82550; 82553; 83880; 84484; 85025; 93005; 99283

== ENCOUNTER 2018-11-16 17:30 | Emergency (ER) | payer OTHER ==
[~2018-11-16] VITALS: Ht 165.1 cm; Wt 95.3 kg
--- OUTSIDE RECORDS SUMMARY | 2018-11-16 17:34 | XMS REPORT | Clinical Summary ---
Author Author [employer] Organization [employer] Address Unknown Phone Unavailable Care Team Providers Care Hospital Mortician Name Role Phone Clement Mann MD PCP [...] joint (Primary Dx) 12/07/2017 Office Visit Otolaryngology after 11/15/2017 Social History Date Tobacco Use Types Packs/Day [...] Description Date [place] [address] [facility] [address] [place] [address] [phone] 11/25/2018 Appointment Radiology Health Maintenance Due Date Last [...] 01/25/2018 (NON-GYNECOLOGICAL) 11:30 AM CDT REQUEST after 11/15/2017 Results * Comprehensive hearing test (10/12/2018 9:22 [...] Impression: Uncomplicated ultrasound guided thyroid nodule biopsy. [id number] Procedure Note Interface, Radiology Results Incoming - [...] Impression: Uncomplicated ultrasound guided thyroid nodule biopsy. [id number] Performing Organization Address City/State/Zipcode Phone Number [facility] [address] [place] [address] * Cytology (non-gynecological) request (01/25/2018 11:30 AM CDT) [facility] DEPARTMENT OF PATHOLOGY AND GENOMIC MEDICINE Cytology See link below for PDF Lab [facility] (non-gynecologi Report DEPARTMENT OF [facility]) report PATHOLOGY AND GENOMIC MEDICINE Result status This is Final Report for [facility] [id number] DEPARTMENT OF PATHOLOGY AND GENOMIC MEDICINE Specimen Performing Organization Address City/State/[facility] Phone Number [address] [place] [address] PATHOLOGY AND GENOMIC MEDICINE after 11/15/2017 Insurance Type Payer Benefit Subscriber ID Effective Phone Address Plan / Dates Group HMO [employer]US TEXANPLUS xxxxxxxxx 2016-P CORIN vogt Advance Directives Patient has advance care planning documents on file. For more information, shima e contact: Roni Gomez [address] [place] [address]
--- OUTSIDE RECORDS SUMMARY | 2018-11-16 17:34 | XMS REPORT | Continuity of Care Document ---
Author Author [employer] Address Unknown Phone Unavailable Care Team Providers Care Tailer Off Name Role Phone [employer] Unavailable Unavailable Problems Problem Status Onset Date Classification Date Reported Comments Source E11.9 Active 08/11/2017 [facility] DISORDER OF THYROID 246.9 Active 08/06/2014 [facility] 246.9 ABNORMAL THYROID EXAM Active 11/22/2013 [facility] URINARY SYMPTOMS Active 10/20/2012 [facility] UTI Active 08/24/2011 [facility] SIDE PAIN Active 04/02/2011 [facility] Medications Medication Details Route Status Patient Instructions Ordering Provider Order Date Source Bactrim oral tablet 1 tab, PO, BID, 14 tab, Substitution Allowed, Maintenance PO Active [facility] 08/24/2011 [facility] Pyridium 100 mg oral tablet 100 mg, 1 tab, PO, TID, PRN, 6 tab, Dysuria, Substitution Allowed PO Active [facility] 08/24/2011 [facility] Cipro 500 mg oral tablet 500 mg, 1 tab, PO, Q12H, 14 tab, Substitution Allowed, TAB PO Active [facility] 04/02/2011 [facility] Enablex 7.5 mg oral tablet, extended release 7.5 mg, 1 tab, PO, Daily, 30 tab, Substitution Allowed, ERTAB PO Active [facility] 04/02/2011 [facility] Allergies, Adverse Reactions, Alerts Substance Category Reaction Severity Reaction type Status Date Reported Comments Source Cipro Assertion Drug allergy Active [facility] Immunizations No Data Provided for This Section Results Order Name Results Value Reference Range Date Interpretation Comments Source URINALYSIS UA Bacteria Occasional /HPF *NA* (10/20/2012 05:05:00) None Seen 10/20/2012 [facility] URINALYSIS UA Mucus Few /LPF *NA* (10/20/2012 05:05:00) None Seen 10/20/2012 [facility] URINALYSIS UA Bili Negative *NA* (10/20/2012 05:05:00) Negative 10/20/2012 [facility] URINALYSIS UA Glucose Negative mg/dL *NA* (10/20/2012 05:05:00) Negative 10/20/2012 NA [facility] URINALYSIS UA Ketones Negative mg/dL *NA* (10/20/2012 05:05:00) Negative 10/20/2012 NA [facility] URINALYSIS UA Sq Epi Few /LPF *NA* (10/20/2012 05:05:00) Few 10/20/2012 NA [facility] URINALYSIS UA RBC <1 0 - 2 10/20/2012 Normal [facility] URINALYSIS UA Nitrite Negative (10/20/2012 05:05:00) Negative 10/20/2012 Normal [facility] URINALYSIS UA Leuk Est Negative (10/20/2012 05:05:00) Negative 10/20/2012 Normal [facility] URINALYSIS UA Blood Negative (10/20/2012 05:05:00) Negative 10/20/2012 Normal [facility] URINALYSIS UA Urobilinogen 0.1 - 1.0 10/20/2012 NA [facility] URINALYSIS UA Spec Grav 1.017 <=1.030 10/20/2012 Normal [facility] URINALYSIS UA Protein Negative mg/dL (10/20/2012 05:05:00) Negative 10/20/2012 Normal [facility] URINALYSIS UA pH 5.0 5.0 - 8.0 10/20/2012 Normal [facility] URINALYSIS UA Turbidity Slight *ABN* (10/20/2012 05:05:00) Clear 10/20/2012 ABN [facility] URINALYSIS UA Color Yellow *NA* (10/20/2012 05:05:00) Yellow 10/20/2012 NA [facility] Microbiology Culture: Urine 10/20/2012 [facility] URINALYSIS UA Bacteria None Seen (08/24/2011 07:09:00) None Seen 08/24/2011 Normal [facility] URINALYSIS UA RBC None Seen (08/24/2011 07:09:00) 0 - 2 08/24/2011 Normal [facility] URINALYSIS UA WBC 0-2 /HPF (08/24/2011 07:09:00) None Seen 08/24/2011 Normal [facility] URINALYSIS UA Sq Epi Rare /LPF [...] Negative *NA* (04/02/2011 09:14:00) Negative 04/02/2011 NA [facility] URINALYSIS UA Glucose Negative (04/02/2011 09:14:00) Negative 04/02/2011 Normal [facility] URINALYSIS UA Bili Negative *NA* (04/02/2011 09:14:00) Negative 04/02/2011 [facility] URINALYSIS UA Spec Grav >=1.030 *ABN* (04/02/2011 09:14:00) <=1.030 04/02/2011 ABN [facility] URINALYSIS UA Turbidity Slight Cloudy (04/02/2011 09:14:00) Clear 04/02/2011 Normal [facility] URINALYSIS UA Color Yellow *NA* (04/02/2011 09:14:00) Yellow 04/02/2011 NA [facility] URINALYSIS UA Blood Trace *ABN* (04/02/2011 09:14:00) Negative 04/02/2011 ABN [facility] URINALYSIS UA Bacteria None Seen (04/02/2011 09:14:00) None Seen 04/02/2011 Normal [facility] URINALYSIS UA RBC None Seen (04/02/2011 09:14:00) 0 - 2 04/02/2011 Normal [facility] URINALYSIS UA WBC 0-2 /HPF (04/02/2011 09:14:00) None Seen 04/02/2011 Normal [facility] URINALYSIS UA Sq Epi Occasional /LPF (04/02/2011 09:14:00) Few 04/02/2011 Normal [facility] Microbiology Culture: Urine 04/02/2011 [facility] Pathology Reports No Data Provided for This Section Diagnostic Reports Report Value Date Source Ext Lower Arterial bilat w pressure US Please refer to heart lab report, located under Vascular in [facility]. 08/23/2017 [facility] Thyroid US Thyroid ultrasound: Exam reason: [...] to the previous exam, 09/18/2013. SL:12 08/15/2014 [facility] Consultation Notes No Data Provided for This Section Discharge Summaries No Data Provided for This Section History and Physicals No Data Provided for This Section Vital Signs Vital Sign Value Date Comments Source Height 165.1 cm 10/20/2012 [facility] Weight 102.727 10/20/2012 [facility] Height 165.10 cm 08/24/2011 [facility] Weight 102.273 08/24/2011 [facility] Systolic (mm Hg) 146 04/02/2011 [facility] Diastolic (mm Hg) 80 04/02/2011 [facility] Respitory Rate 16 04/02/2011 [facility] Heart Rate 70 04/02/2011 [facility] Temperature Oral (F) 97.9 F 04/02/2011 [facility] Systolic (mm Hg) 152 04/02/2011 [facility] Heart Rate 68 04/02/2011 [facility] Respitory Rate 18 04/02/2011 [facility] Diastolic (mm Hg) 88 04/02/2011 [facility] Temperature Oral (F) 98.1 F 04/02/2011 [facility] Height 165.10 cm 04/02/2011 [facility] Weight 100.000 04/02/2011 [facility] Respitory Rate 18 04/02/2011 [facility] Diastolic (mm Hg) 84 04/02/2011 [facility] Heart Rate 69 04/02/2011 [facility] Temperature Oral (F) 97.5 F 04/02/2011 [facility] Systolic (mm Hg) 147 04/02/2011 [facility] Encounters Location Location Details Encounter Type Encounter Number Reason For Visit Attending Provider ADM Date DC Date Status Source [facility] Emergency [id number] ZEE MONTEIRO 04/02/2011 04/02/2011 Discharged [facility] Emergency [id number] MARTIN CONFUCIANIST 08/24/2011 08/24/2011 Discharged [facility] Emergency [id number] GRAHAM RIOS 10/20/2012 10/20/2012 Discharged [facility] Outpatient [id number] Adama Galarza 08/15/2014 08/16/2014 [facility] Outpatient [id number] Jim Villegas 08/23/2017 08/24/2017 [facility] Procedures No Data Provided for This Section Assessment and Plan No Data Provided for This Section Plan of Care No Data Provided for This Section Social History Social History Date Source No data available for this section 08/24/2017 [facility] Family History No Data Provided for This Section Advance Directives No Data Provided for This Section Functional Status No Data Provided for This Section
[2018-11-16 22:59] LABS: BASOPHILS % 0.4 % (0.0-1.0); EOSINOPHILS # (AUTO) 0.1 (0.0-0.4); EOSINOPHILS % 1.4 % (0.0-6.0); HEMATOCRIT 34.8 % (34.2-44.1); HEMOGLOBIN 10.3 g/dL (12.0-16.0); LYMPHOCYTES # (AUTO) 2.3 (1.0-3.2); MEAN CORPUSCULAR HEMOGLOBIN 22.1 pg (28-32); MEAN CORPUSCULAR HGB CONC 29.6 g/dL (31-35); MEAN CORPUSCULAR VOLUME 74.7 fL (81-99); MONOCYTES # (AUTO) 0.9 (0.2-0.8); MONOCYTES % 12.4 % (4.4-11.3); NEUTROPHILS # (AUTO) 3.7 (2.1-6.9); NEUTROPHILS % 52.5 % (38.7-80.0); PLATELET COUNT 291 x10e3/uL (140-360); RED BLOOD COUNT 4.66 x10e6/uL (3.6-5.1); RED CELL DISTRIBUTION WIDTH 16.1 % (11.7-14.4)
--- NOTE | 2018-11-16 23:00 | Diagnostic Imaging Report ---
EXAMINATION: CHEST SINGLE (PORTABLE) INDICATION: Chest pain. COMPARISON: 10/24/2018. FINDINGS: PA and lateral views TUBES and LINES: None. LUNGS: Lungs are adequately inflated.. Bibasilar platelike atelectasis versus scarring again observed. PLEURA: No pleural effusion or pneumothorax. HEART AND MEDIASTINUM: Cardiac size is mildly enlarged. Prominence of the pulmonary salty bilaterally suggestive of enlarged pulmonary arteries. The thoracic tortuous and folded with calcification of the arch. BONES AND SOFT TISSUES: No acute osseous lesion. Soft tissues are unremarkable. UPPER ABDOMEN: No free air under the diaphragm. Large hiatal hernia. IMPRESSION: Bibasilar platelike atelectasis versus scarring again observed. Signed by: Dr. Mann Hanna M.D. on 11/16/2018 10:56 PM
[2018-11-16 23:20] LABS: ALANINE AMINOTRANSFERASE 16 IU/L (0-55); ALBUMIN 4.1 g/dL (3.5-5.0); ALBUMIN/GLOBULIN RATIO 1.2 (0.8-2.0); ALKALINE PHOSPHATASE 81 IU/L (40-150); ANION GAP 19.7 mmol/L (8-16); BLOOD UREA NITROGEN 15 mg/dL (7-26); BUN/CREATININE RATIO 21 (6-25); CALCIUM 9.8 mg/dL (8.4-10.2); CARBON DIOXIDE 22 mmol/L (22-29); CHLORIDE 101 mmol/L (98-107); CREATINE KINASE 59 IU/L (29-168); CREATININE, SERUM 0.71 mg/dL (0.57-1.11); EST GLOMERULAR FILTRATION RATE > 60 ML/MIN (60-); GLUCOSE 147 mg/dL (74-118); LIPASE 8 U/L (8-78); POTASSIUM 3.7 mmol/L (3.5-5.1); SODIUM 139 mmol/L (136-145)
[2018-11-16] MEDS ORDERED: FAMOTIDINE40 MG PO (23:33)
--- NOTE | 2018-11-16 23:36 | NUR ---
PATIENT IS CONSTANTLY WALKING UP AND DOWN THE HALLS, TALKING TO ALL THE PATIENTS IN OTHER ROOMS ABOUT THEIR DX. PT HAS BEEN TOLD TO STAY IN HER OWN ROOM. PT IS AMB WITHOUT ANY DIFFICULTY.
== END 2018-11-17 00:01 | disposition home or self-care (01) ==
LOC: ER 17:30
DX: R10.13 Epigastric pain (principal); K44.9 Diaphragmatic hernia without obstruction or gangrene; I10 Essential (primary) hypertension; E11.9 Type 2 diabetes mellitus without complications; K21.9 Gastro-esophageal reflux disease without esophagitis; E78.5 Hyperlipidemia, unspecified; Z79.84 Long term (current) use of oral hypoglycemic drugs; Z79.82 Long term (current) use of aspirin
CPT/HCPCS: 36415; 71045; 80053; 82550; 82553; 83690; 84484; 85025; 93005; 99284

== ENCOUNTER 2019-02-17 05:59 | Emergency (ER) | payer OTHER ==
[~2019-02-17] VITALS: Ht 165.1 cm; Wt 95.3 kg
[~2019-02-17 05:59] MED LIST changes: +FAMOTIDINE40 MG PO
[2019-02-17 06:16] LABS: BILIRUBIN,URINE NEGATIVE (NEGATIVE); CLARITY,URINE CLEAR (CLEAR); COLOR,URINE YELLOW (YELLOW); KETONES,URINE NEGATIVE (NEGATIVE); LEUKOCYTE ESTERASE ,URINE NEGATIVE (NEGATIVE); NITRITE,URINE NEGATIVE (NEGATIVE); PROTEIN,URINE DIPSTICK NEGATIVE (NEGATIVE); URINE UROBILINOGEN 0.2 mg/dL (0.2 - 1)
[2019-02-17 06:25] LABS: WBC,URINE (MAN) 0-5 /HPF (0-5)
[2019-02-17 06:26] LABS: BACTERIA,URINE RARE /HPF; EPITHELIAL CELLS,URINE FEW /LPF; RBC,URINE 0-5 /HPF (0-5)
== END 2019-02-17 06:44 | disposition home or self-care (01) ==
LOC: ER 05:59
DX: R30.0 Dysuria (principal); B37.3 Candidiasis of vulva and vagina; I10 Essential (primary) hypertension; E11.9 Type 2 diabetes mellitus without complications; E78.5 Hyperlipidemia, unspecified; K21.9 Gastro-esophageal reflux disease without esophagitis
CPT/HCPCS: 81001; 87086; 99283

== ENCOUNTER 2019-12-08 08:01 | Emergency (ER) | payer OTHER ==
[~2019-12-08] VITALS: Ht 165.1 cm; Wt 95.3 kg
[2019-12-08] MEDS ORDERED: CEFTRIAXONE SOD 1 GM/NS 50 ML 50 ML IV ONE (08:15)
--- NOTE | 2019-12-08 08:43 | Emergency Department Note ---
History of Present Illnes History of Present Illness History of Present Illness This is a 78 year old female arrived to the ED with complaints of dysuria for several days states she's been on numerous antibiotics by Dr. Martinez. Onset (how long ago): day(s) Onset quality: gradual Duration (how long): day(s) Timing of current episode: constant Progression: worsening Past Medical/Family History Physician Review I have reviewed the patient's past medical and family history. Any updates have been documented here. Past Medical History Past Medical History: Hypertension, Diabetes, Kidney Stones, UTI's, GERD, Hyperlipedemia Other Medical History: VERTIGO HIATAL HERNIA DIVERTICULOSIS GLAUCOMA Past Surgical History: Cholecysctectomy Other Surgery: KIDNEY STONE LITHROTRIPSY CYST REMOVED FROM RIGHT BREAST BLADDER DILATION Other Last Tetanus: UNKNOWN Review of Systems Review of Systems Constitutional: Reports no symptoms EENTM: Reports no symptoms Cardiovascular: Reports no symptoms Respiratory: Reports no symptoms Gastrointestinal: Reports no symptoms Genitourinary: Reports as per HPI, Reports dysuria Musculoskeletal: Reports no symptoms Integumentary: Reports no symptoms Neurological: Reports no symptoms Psychological: Reports no symptoms Endocrine: Reports no symptoms Hematological/Lymphatic: Reports no symptoms Physical Exam Related Data Allergies: Coded Allergies: coffee (Coffea arabica) (Verified Allergy, Intermediate, vomiting, 04/13/18) egg (Verified Allergy, Intermediate, VOMITING, 01/20/18) ciprofloxacin (Verified Allergy, Mild, SWELLING, 01/20/18) esomeprazole mag (Verified Allergy, Mild, DIZZY, 01/20/18) Uncoded Allergies: TAPE (Allergy, Unknown, 05/20/17) Vital signs reviewed: Yes Physical Exam CONSTITUTIONAL Constitutional: Present well-developed, Present well-nourished HENT HENT: Present normocephalic, Present atraumatic, Present oropharynx clear/moist, Present nose normal HENT L/R: Present left ext ear normal, Present right ext ear normal EYES Eyes: Reports PERRL, Reports conjunctivae normal NECK Neck: Present ROM normal PULMONARY Pulmonary: Present effort normal, Present breath sounds normal CARDIOVASCULAR Cardiovascular: Present regular rhythm, Present heart sounds normal, Present capillary refill normal, Present normal rate GASTROINTESTINAL Abdominal: Present soft, Present nontender, Present bowel sounds normal GENITOURINARY Genitourinary: Present exam deferred SKIN Skin: Present warm, Present dry MUSCULOSKELETAL Musculoskeletal: Present ROM normal NEUROLOGICAL Neurological: Present alert, Present oriented x 3, Present no gross motor or sensory deficits PSYCHOLOGICAL Psychological: Present mood/affect normal, Present judgement normal Results Laboratory Lab results reviewed: Yes Laboratory comments Laboratory Tests Test 12/08/19 08:15 White Blood Count 9.07 x10e3/uL (4.8-10.8) Red Blood Count 5.08 x10e6/uL (3.6-5.1) Hemoglobin 15.1 g/dL (12.0-16.0) Hematocrit 46.3 % (34.2-44.1) Mean Corpuscular Volume 91.1 fL (81-99) Mean Corpuscular Hemoglobin 29.7 pg (28-32) Mean Corpuscular Hemoglobin Concent 32.6 g/dL (31-35) Red Cell Distribution Width 12.1 % (11.7-14.4) Platelet Count 279 x10e3/uL (140-360) Neutrophils (%) (Auto) 67.2 % (38.7-80.0) Lymphocytes (%) (Auto) 19.6 % (18.0-39.1) Monocytes (%) (Auto) 11.7 % (4.4-11.3) Eosinophils (%) (Auto) 0.8 % (0.0-6.0) Basophils (%) (Auto) 0.3 % (0.0-1.0) Neutrophils # (Auto) 6.1 (2.1-6.9) Lymphocytes # (Auto) 1.8 (1.0-3.2) Monocytes # (Auto) 1.1 (0.2-0.8) Eosinophils # (Auto) 0.1 (0.0-0.4) Basophils # (Auto) 0.0 (0.0-0.1) Absolute Immature Granulocyte (auto 0.04 x10e3/uL (0-0.1) Urine Color Yellow (YELLOW) Urine Clarity Clear (CLEAR) Urine pH 6 (5 - 7) Urine Specific [place] 1.025 (1.010-1.025) Urine Protein 2+ (NEGATIVE) Urine Glucose (UA) Negative (NEGATIVE) Urine Ketones Negative (NEGATIVE) Urine Blood Trace (NEGATIVE) Urine Nitrite Negative (NEGATIVE) Urine Bilirubin Negative (NEGATIVE) Urine Urobilinogen 0.2 mg/dL (0.2 - 1) Urine Leukocyte Esterase Negative (NEGATIVE) Urine RBC 0-5 /HPF (0-5) Urine WBC 0-5 /HPF (0-5) Urine Epithelial Cells Rare /LPF (NONE) Urine Bacteria Few /HPF (NONE) Sodium Level 139 mmol/L (136-145) Potassium Level 4.0 mmol/L (3.5-5.1) Chloride Level 101 mmol/L (98-107) Carbon Dioxide Level 23 mmol/L (22-29) Anion Gap 19.0 mmol/L (8-16) Blood Urea Nitrogen 11 mg/dL (7-26) Creatinine 0.67 mg/dL (0.57-1.11) Estimat Glomerular Filtration Rate > 60 ML/MIN (60-) BUN/Creatinine Ratio 16 (6-25) Glucose Level 141 mg/dL (74-118) Calcium Level 9.3 mg/dL (8.4-10.2) Total Bilirubin 1.2 mg/dL (0.2-1.2) Aspartate Amino Transf (AST/SGOT) 23 IU/L (5-34) Alanine Aminotransferase (ALT/SGPT) 22 IU/L (0-55) Alkaline Phosphatase 93 IU/L (40-150) Total Protein 7.8 g/dL (6.5-8.1) Albumin 4.5 g/dL (3.5-5.0) Globulin 3.3 g/dL (2.3-3.5) Albumin/Globulin Ratio 1.4 (0.8-2.0) Assessment & Plan Medical Decision Making MDM 78-year-old female arrived to the ED with complaints of dysuria. Urinalysis in the ED today is normal. Case discussed with patient's PCP Dr. Martinez who reviewed the office urine culture recommended discharge on Ceftin 250 mg twice a day for 7 days. Patient's lab work reviewed with no evidence of renal function noted. Patient hemodynamically stable and afebrile at time of discharge. Assessment & Plan Final Impression: (1) Dysuria Depart Disposition: HOME, SELF-[facility] living Meds Active Scripts Cefuroxime Axetil (CEFUROXIME) 250 Mg Tablet, 250 MG PO Q12H, #14 TAB Prov:EVANGELIAN OLIVA, 12/08/19 Famotidine (FAMOTIDINE) 40 Mg Tablet, 40 MG PO DAILY for 30 Days, #30 Prov:EVANGELINA OLIVA DO 11/16/18 Scopolamine Hydrobromide (TRANSDERM-SCOP) 1 Each Patch.td72, 1.5 MG TD ONCE PRN for DIZZINESS, #1 PATCH Prov:VIVIANE SMITH MD 08/31/18 Loperamide Hcl (LOPERAMIDE) 2 Mg Tablet, 2 MG PO BID PRN for DIARRHEA, #14 CAP Prov:VIVIANE SMITH MD 08/31/18 Lactobacillus Acidophilus (ACIDOPHILUS) 1 Each Tab.chew, 1 CAP PO Q12H, #30 Prov:VIVIANE SMITH MD 08/31/18 Cefuroxime Axetil (CEFUROXIME) 250 Mg Tablet, 500 MG PO Q12H for 7 Days, #28 TAB Prov:ESTEFANI SCHULTZ [employer] 01/20/18 Meclizine Hcl (MECLIZINE HCL) 12.5 Mg Tablet, 25 MG PO DAILY for DIZZINESS for 7 Days, #30 TAB 0 Refills Prov:FRANCESCO EISENBERG MD 05/20/17 Ondansetron Hcl* (ZOFRAN*) 4 Mg Tablet, 4 MG SL Q6H PRN for NAUSEA for 7 Days, #14 MG 0 Refills Prov:FRANCESCO EISENBERG MD 05/20/17 Reported Medications Nitrofurantoin Macrocrystal (NITROFURANTOIN) 100 Mg Capsule, 100 MG PO DAILY 03/17/17 Tramadol Hcl (ULTRAM) 50 Mg Tablet, 50 MG PO Q8H for PAIN, TAB 01/28/17 Sitagliptin Phos/Metformin Hcl (JANUMET 50-1,000 MG TABLET) 1 Each Tablet, 1 TAB PO BID 01/28/17 Ondansetron (ZOFRAN ODT) 4 Mg Tab.rapdis, 4 MG PO Q4HR PRN for NAUSEA AND VOMITING, TAB 10/13/16 Loratadine (LORATADINE) 10 Mg Tablet, 10 MG PO DAILY, #30 TAB 10/13/16 Brimonidine Tartrate (COMBIGAN EYE DROPS) 5 Ml Drpette, 1 DROP OP DAILY 06/06/16 Bimatoprost (LUMIGAN) 2.5 Ml Drops, 2.5 MG OP DAILY, BOTTLE 06/06/16 Famotidine (FAMOTIDINE) 20 Mg Tab, 40 MG PO DAILY, #30 TAB 11/13/15 Omeprazole (OMEPRAZOLE) 40 Mg Capsule.dr, 20 MG PO DAILY 11/13/15 Calcium Carbonate/Vitamin D3 (OS-JENELLE 500+D TABLET) 1 Each Tablet, 500 MG PO BID, #30 TAB 10/16/13 Multivitamin (DAILY VITAMIN) 1 Each Tablet, 1 PO DAILY 10/16/13 Cyanocobalamin (VITAMIN B-12) 1,000 Mcg Tab, 1000 MCG PO DAILY, #30 TAB 10/16/13 Aspirin (ASPIRIN CHEW) 81 Mg Chew, 81 MG PO DAILY, #30 TAB 10/16/13 Lovastatin (Lovastatin) 40 Mg Tablet, 40 MG PO HS 10/27/11 Amlodipine Besylate (Amlodipine Besylate) 5 Mg Tablet, 5 MG PO DAILY 10/27/11 Lisinopril (Lisinopril) 40 Mg Tablet, 40 MG PO DAILY 10/27/11 Medications in the ED Ceftriaxone Sodium 50 ml @ 50 mls/hr ONCE ONCE IV ; Start 12/08/19 at 08:15; Stop 12/08/19 at 09:14 EVANGELINA OLIVA DO Dec 08, 2019 08:42
[2019-12-08 08:51] LABS: BASOPHILS % 0.3 % (0.0-1.0); EOSINOPHILS # (AUTO) 0.1 (0.0-0.4); EOSINOPHILS % 0.8 % (0.0-6.0); HEMATOCRIT 46.3 % (34.2-44.1); HEMOGLOBIN 15.1 g/dL (12.0-16.0); LYMPHOCYTES # (AUTO) 1.8 (1.0-3.2); LYMPHOCYTES % 19.6 % (18.0-39.1); MEAN CORPUSCULAR HEMOGLOBIN 29.7 pg (28-32); MEAN CORPUSCULAR HGB CONC 32.6 g/dL (31-35); MEAN CORPUSCULAR VOLUME 91.1 fL (81-99); MONOCYTES # (AUTO) 1.1 (0.2-0.8); MONOCYTES % 11.7 % (4.4-11.3); NEUTROPHILS # (AUTO) 6.1 (2.1-6.9); NEUTROPHILS % 67.2 % (38.7-80.0); PLATELET COUNT 279 x10e3/uL (140-360); RED BLOOD COUNT 5.08 x10e6/uL (3.6-5.1); RED CELL DISTRIBUTION WIDTH 12.1 % (11.7-14.4)
[2019-12-08 09:20] LABS: ALANINE AMINOTRANSFERASE 22 IU/L (0-55); ALBUMIN 4.5 g/dL (3.5-5.0); ALBUMIN/GLOBULIN RATIO 1.4 (0.8-2.0); ALKALINE PHOSPHATASE 93 IU/L (40-150); BLOOD UREA NITROGEN 11 mg/dL (7-26); BUN/CREATININE RATIO 16 (6-25); CALCIUM 9.3 mg/dL (8.4-10.2); CARBON DIOXIDE 23 mmol/L (22-29); CHLORIDE 101 mmol/L (98-107); CREATININE, SERUM 0.67 mg/dL (0.57-1.11); EST GLOMERULAR FILTRATION RATE > 60 ML/MIN (60-); GLUCOSE 141 mg/dL (74-118); SODIUM 139 mmol/L (136-145)
[2019-12-08 09:27] LABS: BACTERIA,URINE FEW /HPF; BILIRUBIN,URINE NEGATIVE (NEGATIVE); CLARITY,URINE CLEAR (CLEAR); COLOR,URINE YELLOW (YELLOW); EPITHELIAL CELLS,URINE RARE /LPF; KETONES,URINE NEGATIVE (NEGATIVE); LEUKOCYTE ESTERASE ,URINE NEGATIVE (NEGATIVE); NITRITE,URINE NEGATIVE (NEGATIVE); PROTEIN,URINE DIPSTICK 2+ (NEGATIVE); RBC,URINE 0-5 /HPF (0-5); URINE UROBILINOGEN 0.2 mg/dL (0.2 - 1); WBC,URINE (MAN) 0-5 /HPF (0-5)
[2019-12-08] MEDS ORDERED: CEFUROXIME250 MG PO (10:39)
--- OUTSIDE RECORDS SUMMARY | 2019-12-08 11:13 | XMS REPORT | Clinical Summary ---
Author Author [facility] Organization [facility] Address Unknown Phone Unavailable Care Team Providers Care Conical Mixer Name Role Phone Clement Mann MD PCP [...] Active lovastatin (MEVACOR) 40 40 mg. 0 10/08/ MG tablet 7 Active losartan (COZAAR) 100 MG 100 mg. 0 11/05 tablet 7 Active famotidine (PEPCID) 40 MG 40 mg. 3 12/11 tablet 7 Active amLODIPine (NORVASC) 5 mg 5 mg. 0 12/11 tablet 7 Active sulfamethoxazole-trimetho Take 1 tablet 0 prim (BACTRIM DS) 800-160 by mouth 2 mg per tablet (two) times a day. Active lisinopril Take 40 mg by 0 (PRINIVIL,ZESTRIL) 40 mg mouth daily. tablet Active nitrofurantoin Daily 0 (MACRODANTIN) 100 MG capsule Active cefpodoxime (VANTIN) 100 0 12/03/ MG tablet 8 Active atorvastatin (LIPITOR) 40 TK 1 T PO QD 1 05/0 2/201 MG tablet 9 Active COMBIGAN 0.2-0.5 % INT 1 GTT IN 0 ophthalmic solution OU BID 9 Active SITagliptin-metformin Twice A Day 0 (JANUMET) 50-1,000 mg per tablet Active calcium carbonate/vitamin Twice A Day 0 D3 (CALCIUM 500 + D ORAL) Active cyanocobalamin Daily 0 (cyanocobalamin) 1000 MCG tablet Active aspirin 81 mg chewable Daily 0 tablet Active guaifenesin/dextromethorp Take by 0 lawrence (MUCINEX DM ORAL) mouth. Active cetirizine (ZyrTEC) 10 MG Take 10 mg by 0 tablet mouth daily. Active empty container (Nasal 1 applicator 1 Bottle 0 Harrah Bottle) bottle 2 (two) times 0 a day. Please provide patient an over the counter [facility] Sinus Irrigation Kit (bottle + salt packets) at drive through window. 12/07/2018 naproxen sodium (ALEVE) Take 1 tablet 20 tablet 0 220 MG tabletIndications: (220 mg 8 Arthralgia of right total) by temporomandibular joint mouth 2 (two) times a day with meals. 05/08/2019 azithromycin (ZITHROMAX) Take 2 6 tablet 0 0 250 MG tablet tablets the 0 first day, then 1 tablet daily for 4 days. 07/30/2019 azithromycin (Zithromax Take 2 6 tablet 0 Z-Sean) 250 MG tablets (500 0 tabletIndications: mg total) by Pharyngitis, unspecified mouth daily etiology for 5 days. Take 2 tablets the first day, then 1 tablet daily for 4 days. 07/30/2019 methylPREDNISolone follow 21 tablet 0 02 (Medrol, Sean,) 4 mg package 0 tablet directions Status Hospital, Clinic, or Ordered Dose Route Frequency Start End Date Other Facility Date Administered Medication Ended triamcinolone acetonide 40 mg IM once 04/20/19 (KENALOG-40) injection 40 20 0 mg Ended triamcinolone acetonide 40 mg IM once 09/20/19 (KENALOG-40) injection 40 20 0 mg Active Problems Problem Noted Date Tonsillitis 05/04/2019 Unsteadiness 10/12/2018 Nasal congestion 11/12/2017 Chronic seasonal allergic rhinitis due to pollen Tinnitus 11/26/2016 Thyroid nodule 11/26/2016 Sensorineural hearing loss, bilateral 11/26/2016 Encounters Care Team Description Date Type Specialty Adama Galarza MD Chronic seasonal allergic rhinitis due t o pollen (Primary Dx) 09/20/2019 Office Visit Otolaryngology 09/19/2019 Travel Kathie Lopez MD Pharyngitis, unspecified etiology (Prima ry Dx); Allergic rhinitis, unspecified seasonality, unspecified trigger 07/25/2019 Telephone Otolaryngology Consult 07/25/2019 Travel Areli Dean RN 07/24/2019 Telephone Otolaryngology Adama Galarza MD Chronic seasonal allergic rhinitis due t o pollen 05/29/2019 Hospital Radiology Encounter Adama Galarza MD Tonsillitis (Primary Dx) 05/22/2019 Office Visit Otolaryngology Adama Galarza MD Tonsillitis (Primary Dx) 05/04/2019 Office Visit Otolaryngology Adama Galarza MD Chronic seasonal allergic rhinitis due t o pollen (Primary Dx) 04/20/2019 Office Visit Otolaryngology after 12/07/2018 Social History Date Tobacco Use Types Packs/Day Years Used Never Smoker Smokeless Tobacco: Never Used Drinks/Week oz/Week Comments Alcohol Use No Sex Assigned at Date Recorded Not on file Industry Job Start Date Occupation Not on file Not on file Not on file Travel End Travel History Travel Start No recent travel history available. Last Filed Vital Signs Reading Time Taken Comments Vital Sign - - Blood Pressure - - Pulse - - Temperature - - Respiratory Rate - - Oxygen Saturation - - Inhaled Oxygen Concentration 88.9 kg (196 lb) 09/20/2019 4:17 PM CDT Weight 165.1 cm (5' 5") 09/20/2019 4:17 PM CDT Height 32.62 09/20/2019 4:17 PM CDT Body Mass Index Plan of Treatment Health Maintenance Due Date Last Done Comments COLONOSCOPY SCREENING 1992 SHINGLES VACCINES (#1) 1992 65+ PNEUMOCOCCAL VACCINE 12/21/2007 (1 of 2 - PCV13) INFLUENZA VACCINE 01/11/2020 Procedures Comments Procedure Name Priority Date/Time Associated Diag nosis US THYROID Routine 05/29/2019 Chronic seasona l allergic 10:36 AM CRIMINALIST TECHNICIAN rhinitis due to pollen after 12/07/2018 Results * US Thyroid (05/29/2019 10:36 AM CRIMINALIST TECHNICIAN) Specimen Narrative Performed At EXAMINATION: US THYROID [facility] CLINICAL HISTORY: J30.1 Allergic rhin itis due to pollen, Thyroid nodule incidental on CT MR US no risk fact ors COMPARISON: Ultrasound biopsy of the thyroid January 25, 2019 FINDINGS: The right thyroid lobe measures 2.9 x 1 .2 x 1.1 cm. The isthmus is 0.2 mm in thickness. The left thyroid lobe measures 5.4 x 2. 3 x 2.9 cm. The thyroid gland is slightly heterogen oeus in echogenicity without hypervascularity. No enlarged lymph nod es around the thyroid gland. . NODULE 1 Location: Right lobe Size: 1.0 cm, Composition: Cystic solid Echogenicity: Isoechoic Shape: Wider than tall Margin: Indistinct Echogenic foci: No calcification. TOTAL POINTS: 2, Ti-RADS 2 NODULE 2 Location: Right lobe Size: . 0.5 cm, Composition: Predominantly solid Echogenicity: Hypoechoic Shape: Wider than tall Margin: Smooth margin Echogenic foci: No calcifications TOTAL POINTS: 4, TI RADS 4 NODULE 3 Location: Left lobe Size: 1.8 cm, Composition: Predominantly solid Echogenicity: Echogenic Shape: Wider than tall Margin: Smooth margin Echogenic foci: No calcifications TOTAL POINTS: 3, TI RADS 3. NODULE 4 Location: Left lobe Size: 1.7 cm, Composition: Predominantly solid Echogenicity: Echogenic Shape: Wider than tall Margin: Smooth margin Echogenic foci: No calcifications TOTAL POINTS: 3, TI RADS 3. NODULE 5 Location: Left lobe Size: 1.6 cm, Composition: Predominant a cystic Echogenicity: Anechoic Shape: Wider than tall Margin: Smooth margin Echogenic foci: No calcifications TOTAL POINTS: 0, TI RADS 1. NODULE 6 Location: Left lobe Size: 3.4 cm, stable from the eder or biopsy images. Composition: Cystic solid Echogenicity: Isoechoic Shape: Wider than tall Margin: Indistinct Echogenic foci: Coarse calcificat ion TOTAL POINTS: 3, TI RADS 3. IMPRESSION: Dominant left thyroid lobe nodule stabl e from the prior biopsy. Multinodular thyroid gland can be follo wed up with thyroid ultrasound in one year. [id number] Procedure Note Hm Interface, Radiology Results Incoming - 05/29/2019 11:53 AM CRIMINALIST TECHNICIAN EXAMINATION: US THYROID CLINICAL HISTORY: J30.1 Allergic rhinitis due to pollen, Thyroid nodule incidental on CT MR US no risk factors COMPARISON: Ultrasound biopsy of the thyroid January 25, 2019 FINDINGS: The right thyroid lobe measures 2.9 x 1.2 x 1.1 cm. The isthmus is 0.2 mm in thickness. The left thyroid lobe measures 5.4 x 2.3 x 2.9 cm. The thyroid gland is slightly heterogenoeus in echogenicity without hypervascularity. No enlarged lymph nodes around the thyroid gland. . NODULE 1 Location: Right lobe Size: 1.0 cm, Composition: Cystic solid Echogenicity: Isoechoic Shape: Wider than tall Margin: Indistinct Echogenic foci: No calcification. TOTAL POINTS: 2, Ti-RADS 2 NODULE 2 Location: Right lobe Size: . 0.5 cm, Composition: Predominantly solid Echogenicity: Hypoechoic Shape: Wider than tall Margin: Smooth margin Echogenic foci: No calcifications TOTAL POINTS: 4, TI RADS 4 NODULE 3 Location: Left lobe Size: 1.8 cm, Composition: Predominantly solid Echogenicity: Echogenic Shape: Wider than tall Margin: Smooth margin Echogenic foci: No calcifications TOTAL POINTS: 3, TI RADS 3. NODULE 4 Location: Left lobe Size: 1.7 cm, Composition: Predominantly solid Echogenicity: Echogenic Shape: Wider than tall Margin: Smooth margin Echogenic foci: No calcifications TOTAL POINTS: 3, TI RADS 3. NODULE 5 Location: Left lobe Size: 1.6 cm, Composition: Predominant a cystic Echogenicity: Anechoic Shape: Wider than tall Margin: Smooth margin Echogenic foci: No calcifications TOTAL POINTS: 0, TI RADS 1. NODULE 6 Location: Left lobe Size: 3.4 cm, stable from the prior biopsy images. Composition: Cystic solid Echogenicity: Isoechoic Shape: Wider than tall Margin: Indistinct Echogenic foci: Coarse calcification TOTAL POINTS: 3, TI RADS 3. IMPRESSION: Dominant left thyroid lobe nodule stable from the prior biopsy. Multinodular thyroid gland can be followed up with thyroid ultrasound in one year. 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
--- OUTSIDE RECORDS SUMMARY | 2019-12-08 11:14 | XMS REPORT | Continuity of Care Document ---
Author Author [facility] t Organization [facility] Address 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 Name Role Phone GERMAINE NORRIS PCP Geovanni JAEGER, Adama Attphys John JAEGER, Juan Vázquez Attphys Leonora Quintanilla RN, Areli Attphys Unavailable SWEET, A TRACY Attphys Unavailable LISA, L WILEY Attphys Unavailable MANEEVESE, V EMETERIO Attphys Unavailable SARAH, P VIVIANE Attphys Unavailable HAMPEL, LEANNA Attphys Unavailable SQUIRES, D TUE Attphys Unavailable Payers Payer Name Policy Type Policy Number Effective Date Expiration Date Annie ibarra [employer] [id number] xxxxxxxxx 2016 00:00:00 Roni Gomez [employer] [id number] [facility] [employer] Medicare Advantage [id number] [facility] Problems Condition Name Condition Details Condition Category Status Onset Date Resolution Date Last Treatment Date Treating Clinician Comments Source Tonsillitis Tonsillitis Disease Active 2019-05-04 00:00:00 Roni Gomez Unsteadiness Unsteadiness Disease Active 2018-10-12 00:00:00 Roni Gomez Nasal congestion Nasal congestion Disease Active 2017-11-12 00:00:00 Roni Gomez Chronic seasonal allergic rhinitis due to pollen Chron ic seasonal allergic rhinitis due to pollen Disease Active 2016-12-30 00:00:00 Roni Gomez Tinnitus Tinnitus Disease Active 2016-11-26 00:00:00 Roni Gomez Thyroid nodule Thyroid nodule Disease Active 2016-11-26 00:00:00 Roni [facility] Sensorineural hearing loss, bilateral Sensorineural hearing loss, bilateral Disease Active 2016-11-26 00:00:00 Roni [facility] Chest pain Chest pain Problem Active 2015-11-13 00:00:00 [facility] Dyspnea Dyspnea Problem Active 2015-11-13 00:00:00 [facility] Fatigue Fatigue Problem Active 2015-11-13 00:00:00 [facility] Combined abdominal pain, vomiting, and diarrhea Abdomi nal pain, vomiting, and diarrhea Problem Active 2014-06-28 00:00:00 [facility] Calculus of ureter Ureteral stone Problem Active 2014-06-28 00:00:00 [facility] Dehydration Dehydration Problem Active [facility] Influenza due to influenza virus, type B Influenza B Problem Active [facility] Calculus of right kidney Kidney stone on right side Problem Active [facility] Pneumonia Pneumonia Problem Active [facility] Bilateral renal colic Renal colic, bilateral Problem Active [facility] Urinary tract infection Urinary tract infection Problem Active [facility] Allergies, Adverse Reactions, Alerts Allergy Name Allergy Type Status Severity Reaction(s) Onset Date Inacti ve Date Treating Clinician Comments Source Coffee Allergy to Substance Active Moderate vomiting 2018-04-13 00:00:00 [facility] Coffee Propensity to adverse reactions to drug Active Moderat e 2018-04-13 00:00:00 Other reaction(s): vomiting [place] [facility] esomeprazole mag Allergy to Substance Active Mild DIZZY 2018-01-20 00:00:00 [facility] Ciprofloxacin Allergy to Substance Active Mild SWELLING 2018-01-20 0 0:00:00 [facility] Eggs Allergy to Substance Active Moderate VOMITING 2018-01-20 00:00:00 [facility] Ciprofloxacin Propensity to adverse reactions to drug Active Swelling 2018-01-20 00:00:00 [place] [facility] Egg Propensity to adverse reactions to drug Active Moderat e 2018-01-20 00:00:00 Other reaction(s): VOMITING [place] [facility] TAPE Allergy to Substance Active 2017-05-20 00:00:00 [facility] Ragweed Pollen Propensity to adverse reactions to drug Active 2016-12-30 00:00:00 Roni galicia Adhesive Tape-Silicones Propensity to adverse reactions to drug Act carlos enrique Other (See Comments) 2016-11-26 00:00:00 Lizbeth Gomez Ciprofibrate Propensity to adverse reactions to drug Active 2016-11-26 00:00:00 cipro med Roni galicia Esomeprazole Magnesium Propensity to adverse reactions to drug Active Mild 2016-11-26 00:00:00 Other reaction(s): DIZZY Hien Gomez Social History Social Habit Start Date Stop Date Quantity Comments Source Sex Assigned At Hien saúl Gomez Alcohol intake 2019-09-20 00:00:00 2019-09-20 00:00:00 Current non-drinker of alcohol (finding) Roni Gomez Smoking Status Start Date Stop Date Source Never smoker Roni galicia Medications Ordered Medication Name Filled Medication Name Start Date Stop Da te Current Medication? Ordering Clinician Indication Dosage Frequency Signature (SIG) Comments Components Source triamcinolone acetonide (KENALOG-40) injection 40 mg 2019-09-20 16:45:00 2019-09-20 16:40:00 No 40mg Roni Gomez empty container (N[place]al [place] Bottle) bottle 2019-07-25 00:00:00 Yes 1{applicator} Q.5D 1 applicator 2 (two) times a day. Please provide patient an over the counter [facility] Sinus Irrigation Kit (bottle + salt packets) at drive through window. Roni Gomez azithromycin (Zithromax Z-Sean) 250 MG tablet 202 00:00:00 2019-07-30 23:59:00 No Pharyngitis, unspecified etiology 500mg QD Take 2 tablets (500 mg total) by mouth daily for 5 days. Take 2 tablets the first day, then 1 tablet daily for 4 days. Roni Gomez methylPREDNISolone (Medrol, Sean,) 4 mg tablet 20 30-07-13 00:00:00 2019-07-30 23:59:00 No follow package directions Roni Gomez omeprazole (PriLOSEC) 20 MG capsule 2019-05-04 08:12:44 Yes 20mg QD Take 20 mg by mouth daily. Roni Gomez bimatoprost (LUMIGAN) 0.03 % ophthalmic drops 2019-05-04 08:12:4 4 Yes 1[drp] QD 1 drop nightly. Roni carty sitaGLIPtin (JANUVIA) 50 MG tablet 2019-05-04 08:12:44 Yes 50mg QD Take 50 mg by mouth daily. Roni Gomez sulfamethoxazole-trimethoprim (BACTRIM DS) 800-160 mg per ta blet 2019-05-04 08:12:44 Yes 1{tbl} Q.5D Take 1 tablet by mouth 2 (two ) times a day. Roni Gomez lisinopril (PRINIVIL,ZESTRIL) 40 mg tablet 2019-05-04 08:12:44 Yes 40mg QD Take 40 mg by mouth daily. Shefali Gomez nitrofurantoin (MACRODANTIN) 100 MG capsule 2019-05-04 08:12:44 Yes Daily Roni Gomez SITagliptin-metformin (JANUMET) 50-1,000 mg per tablet 2019-05-04 08:12:44 Yes Twice A Day Roni carty calcium carbonate/vitamin D3 (CALCIUM 500 + D ORAL) 05-04 08:12:44 Yes Twice A Day Roni Gomez cyanocobalamin (cyanocobalamin) 1000 MCG tablet 2019-05-04 08:12 :44 Yes Daily Roni hicks aspirin 81 mg chewable tablet 2019-05-04 08:12:44 Yes Daily Roni Gomez guaifenesin/dextromethorphan (MUCINEX DM ORAL) 2019-05-04 08:12: 44 Yes Take by mouth. Roni ramon cetirizine (ZyrTEC) 10 MG tablet 2019-05-04 08:12:44 Yes 10mg QD Take 10 mg by mouth daily. Roni Gomez azithromycin (ZITHROMAX) 250 MG tablet 2019-04-13 3 00:00:00 2019-05-08 23:59:00 No Take 2 tablets the first day, th en 1 tablet daily for 4 days. Roni Gomez triamcinolone acetonide (KENALOG-40) injection 40 mg 2019-04-20 14:00:00 2019-04-20 13:57:00 No 40mg Roni Gomez Famotidine 40 Mg Tablet Famotidine 40 Mg Tablet 2018-11-16 00:00:00 Yes Evangelina Lewisjosé Do 40 Daily [facility] COMBIGAN 0.2-0.5 % ophthalmic solution 2018-09-26 00:00:00 Yes INT 1 GTT IN OU BID Roni Gomez Lactobacillus Acidophilus (Acidophilus) 1 Each Tab.elisa w Lactobacillus Acidophilus (Acidophilus) 1 Each Tab.chew 2018-08-31 00:00:00 Ye s Viviane Smith Md 1 Every 12 Hours [facility] Loperamide Hcl (Loperamide) 2 Mg Tablet Loperamide Hcl (Shiva ramide) 2 Mg Tablet 2018-08-31 00:00:00 Yes Viviane Smith Md 2 Twice A Day as needed for Diarrhea [facility] Scopolamine Hydrobromide (Transderm-Scop) 1 Each Patch .td72 Scopolamine Hydrobromide (Transderm-Scop) 1 Each Patch.td72 2018-08-31 00:00:00 Yes Viviane Smith Md 1.5 Once as needed for Dizziness [facility] atorvastatin (LIPITOR) 40 MG tablet 2018-08-11 00:00:00 Yes TK 1 T PO QD Roni Gomez Cefuroxime Axetil (Cefuroxime) 250 Mg Tablet Cefuroxim e Axetil (Cefuroxime) 250 Mg Tablet 2018-01-20 00:00:00 Yes 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 Roni Gomez cefpodoxime (VANTIN) 100 MG tablet 2017-12-03 00:00:00 Yes Roni Gomez Meclizine Hcl 12.5 Mg Tablet Meclizine Hcl 12.5 Mg Tablet 00:00:00 Yes Cordell Sparks Md 25 Daily for Dizziness [facility] Ondansetron Hcl (Zofran*) 4 Mg Tablet Ondansetron Hcl (Zofra n*) 4 Mg Tablet 2017-05-20 00:00:00 Yes Cordell Sparks Md 4 Every 6 Hours as needed for Nausea [facility] famotidine (PEPCID) 40 MG tablet 2016-12-25 00:00:00 Yes 40mg 40 mg. [place] [facility] amLODIPine (NORVASC) 5 mg tablet 2016-12-25 00:00:00 Yes 5mg 5 mg. [place] [facility] losartan (COZAAR) 100 MG tablet 2016-11-05 00:00:00 Yes 100mg 100 mg. [place] [facility] lovastatin (MEVACOR) 40 MG tablet 2016-10-08 00:00:00 Yes 40mg 40 mg. Roni Gomez Lac 1 Tab Cap, 1 Tab Oral Lac 1 Tab Cap, 1 Tab Oral 2014-07-01 0 0:00:00 2016-10-10 00:00:00 No Perez Velasco Md 1 Every 12 Ho urs [facility] Tamsulosin Hcl (Flomax*) 0.4 Mg Cap, 0.4 Mg Oral Tamsu losin Hcl (Flomax*) 0.4 Mg Cap, 0.4 Mg Oral 2014-07-01 00:00:00 2015-11-13 00:00:00 No Perez Betancur am, Md .4 Every 12 Hours [facility] Amlodipine Besylate 5 Mg Tablet Amlodipine Besylate 5 Mg Tablet Yes 5 Daily [facility] Aspirin (Aspirin Chew) 81 Mg Chew Aspirin (Aspirin Chew) 81 Mg Chew Yes 81 Daily [facility] Bimatoprost (Lumigan) 2.5 Ml Drops Bimatoprost (Lumigan) 2.5 Ml Drops Yes 2.5 Daily [facility] Brimonidine Tartrate (Combigan Eye Drops) 5 Ml Drpette Brimonidine Tartrate (Combigan Eye Drops) 5 Ml Drpette Yes 1 Ladonna y [facility] Calcium Carbonate/Vitamin D3 (Os-Jd 500+D Tablet) 1 E ach Tablet Calcium Carbonate/Vitamin D3 (Os-Jd 500+D Tablet) 1 Each Tablet Yes 500 Twice A Day [facility] Cyanocobalamin (Vitamin B-12) 1,000 Mcg Tab Cyanocobal martin (Vitamin B-12) 1,000 Mcg Tab Yes 1000 Daily [facility] Famotidine 20 Mg Tab Famotidine 20 Mg Tab Yes 40 Daily [facility] Lisinopril 40 Mg Tablet Lisinopril 40 Mg Tablet Yes 40 Daily [facility] Loratadine 10 Mg Tablet Loratadine 10 Mg Tablet Yes 10 Daily [facility] Lovastatin 40 Mg Tablet Lovastatin 40 Mg Tablet Yes 40 Bedtime [facility] Multivitamin (Daily Vitamin) 1 Each Tablet Multivitami n (Daily Vitamin) 1 Each Tablet Yes 1 Daily [facility] Nitrofurantoin Macrocrystal (Nitrofurantoin) 100 Mg Ca psule Nitrofurantoin Macrocrystal (Nitrofurantoin) 100 Mg Capsule Yes 100 Daily [facility] Omeprazole 40 Mg Capsule. Omeprazole 40 Mg Capsule. Yes 20 Daily [facility] Ondansetron (Zofran Odt) 4 Mg Tab.rapdis Ondansetron ( Zofran Odt) 4 Mg Tab.rapdis Yes 4 Every 4 Hours as needed for Nausea And Vomiting [facility] Sitagliptin Phos/Metformin Hcl (Janumet 50-1,000 Mg Ta blet) 1 Each Tablet Sitagliptin Phos/Metformin Hcl (Janumet 50-1,000 Mg Tablet) 1 Each Tablet Yes 1 Twice A Day [facility] Tramadol Hcl (Ultram) 50 Mg Tablet Tramadol Hcl (Ultram) 50 Mg Tablet Yes 50 Every 8 Hours for Pain [facility] Albuterol Sulfate (Proventil Hfa) 6.7 Gm Hfa.aer.ad, 2 Inh Inhalation Albuterol Sulfate (Proventil Hfa) 6.7 Gm Hfa.aer.ad, 2 Inh Inhalation 2017-03-17 00:00:00 No 2 [facility] Sulfamethoxazole/Trimethoprim (Sulfameth oxazole-Tmp Ds Tablet) 1 Each Tablet, 1 Tab Oral Sulfamethoxazole/Trimethoprim (Sulfameth oxazole-Tmp Ds Tablet) 1 Each Tablet, 1 Tab Oral 2017-03-17 00:00:00 No 1 Daily [facility] Guaifenesin/Codeine Phosphate (Cheratussin Ac Syrup) 1 18 Ml Liquid, 10 Ml Oral Guaifenesin/Codeine Phosphate (Cheratussin Ac Syrup) 118 Ml Liquid, 10 Ml Oral 2017-02-22 00:00:00 No 10 Every 4 Hours as n eeded for Cough [facility] Nitrofurantoin Macrocrystal (Nitrofurantoin) 100 Mg Ca psule, 1 Cap Oral Nitrofurantoin Macrocrystal (Nitrofurantoin) 100 Mg Capsule, 1 Cap Oral 2017-02-22 00:00:00 No 1 Twice A Day [facility] Nystatin 100,000 Unit/1 Ml Oral.susp, 5 Ml Oral Nystat in 100,000 Unit/1 Ml Oral.susp, 5 Ml Oral 2017-02-22 00:00:00 No 5 Thr ee Times A Day [facility] Azithromycin (Z-Sean) 250 Mg Tablet, 250 Mg Oral Azithr omycin (Z-Sean) 250 Mg Tablet, 250 Mg Oral 2017-01-28 00:00:00 No 250 Ladonna y [facility] Metformin Hcl 1,000 Mg Tablet, 1000 Mg Oral Metformin Hcl 1,000 Mg Tablet, 1000 Mg Oral 2017-01-28 00:00:00 No 1000 Twice A Day [facility] Sitagliptin Phosphate (Januvia) 100 Mg Tablet, 100 Mg Oral Sitagliptin Phosphate (Januvia) 100 Mg Tablet, 100 Mg Oral 2017-01-28 00:00:00 No 100 Daily [facility] Amoxicillin 250 Mg Capsule, 500 Mg Oral Amoxicillin 250 Mg C apsule, 500 Mg Oral 2016-10-10 00:00:00 No 500 Three Times A Day [facility] Cefdinir (Omnicef) 300 Mg Capsule, 300 Mg Oral Cefdini r (Omnicef) 300 Mg Capsule, 300 Mg Oral 2016-10-10 00:00:00 No 300 Twi ce A Day [facility] Latanoprost 2.5 Ml Drops, 2.5 Ml Ophthalmic Latanopros t 2.5 Ml Drops, 2.5 Ml Ophthalmic 2016-10-10 00:00:00 No 2.5 Bedtime [facility] Nitrofurantoin Macrocrystal (Nitrofurantoin) 100 Mg Ca psule, 50 Mg Oral Nitrofurantoin Macrocrystal (Nitrofurantoin) 100 Mg Capsule, 50 Mg Oral 2016-10-10 00:00:00 No 50 Every 8 Hours [facility] Oseltamivir Phosphate (Tamiflu) 75 Mg Cap, 75 Mg Oral Oseltamivir Phosphate (Tamiflu) 75 Mg Cap, 75 Mg Oral 2016-10-10 00:00:00 No 75 Twice A Day [facility] Cefuroxime Axetil (Cefuroxime) 250 Mg Tablet, 250 Mg O ral Cefuroxime Axetil (Cefuroxime) 250 Mg Tablet, 250 Mg Oral 2015-11-13 00:00:00 No 250 Every 12 Hours [facility] Oxybutynin Chloride 5 Mg Tablet, 5 Mg Oral Oxybutynin Chloride 5 Mg Tablet, 5 Mg Oral 2015-11-13 00:00:00 No 5 Twice A Day [facility] Sulfamethoxazole/Trimethoprim (Sulfameth oxazole-Tmp Ds Tablet) 1 Each Tablet, 096328 Mg Oral Sulfamethoxazole/Trimethoprim (Sulfameth oxazole-Tmp Ds Tablet) 1 Each Tablet, 595632 Mg Oral 2015-09-28 00:00:00 No [id number] Daily [facility] Nitrofurantoin Monohyd/M-Cryst (Macrobid 100 Mg Capsule) 100 Mg Capsule, 100 Mg Oral Nitrofurantoin Monohyd/M-Cryst (Macrobid 100 Mg Capsule) 100 Mg Capsule, 100 Mg Oral 2014-06-28 00:00:00 No 100 Twice A Day [facility] Omeprazole 20 Mg Tablet.dr, 40 Mg Oral Omeprazole 20 Mg Tablet.d r, 40 Mg Oral 2014-06-28 00:00:00 No 40 Twice A Day [facility] Chlordiazepoxide/Clidinium Br (Librax Capsule) 1 Each Capsule, 1 Tab Oral Chlordiazepoxide/Clidinium Br (Librax Capsule) 1 Each Capsule, 1 Tab Oral 2014-02-28 00:00:00 No 1 Qhs [facility] Cholestyramine (With Sugar) (Questran Packet) 4 Gm Pac ket, 4 Gm Oral Cholestyramine (With Sugar) (Questran Packet) 4 Gm Packet, 4 Gm Oral 2014-02-28 00:00:00 No 4 Daily [facility] Clonazepam (Klonopin) 1 Mg Tablet, 1 Mg Oral Clonazepa m (Klonopin) 1 Mg Tablet, 1 Mg Oral 2014-02-28 00:00:00 No 1 Twice A Day [facility] Metoclopramide Hcl (Reglan) 10 Mg Tablet, 10 Mg Oral M etoclopramide Hcl (Reglan) 10 Mg Tablet, 10 Mg Oral 2014-02-28 00:00:00 No 10 Three Times A Day [facility] Cefuroxime Axetil (Cefuroxime) 500 Mg Tablet, 500 Mg O ral Cefuroxime Axetil (Cefuroxime) 500 Mg Tablet, 500 Mg Oral 2013-10-16 00:00:00 No 500 Twice A Day [facility] Mirabegron (Myrbetriq) 50 Mg Tab.er.24h, 50 Mg Oral Mi rabegron (Myrbetriq) 50 Mg Tab.er.24h, 50 Mg Oral 2013-04-12 00:00:00 No 50 Daily [facility] Fluticasone 50MG , Fluticasone 50MG , 2012-11-03 00:00:00 No [facility] Oxybutynin Chloride 5 Mg Tablet, 5 Mg Oral Oxybutynin Chloride 5 Mg Tablet, 5 Mg Oral 2012-11-03 00:00:00 No 5 Twice A Day [facility] Vital Signs Vital Name Observation Time Observation Value Comments Source Body height 2019-09-20 16:17:00 165.1 cm Roni Gomez Body weight 2019-09-20 16:17:00 88.905 kg Roni Gomez BMI 2019-09-20 16:17:00 32.62 kg/m2 Roni Gomez Procedures Procedure Date / Time Performed Performing Clinician [facility] e US THYROID 2019-05-29 10:36:01 Adama Kraft R[facility] X-ray of chest, two views 2018-10-24 00:00:00 FAUSTO GONZALEZ [facility] Plan of Care Planned Activity Planned Date Details Comments Source Future Scheduled Test 2020-01-11 00:00:00 INFLUENZA VACCINE [code = INFLUENZA VACCINE] [facility] Future Scheduled Test 2007-12-21 00:00:00 65+ PNEUMOCOCCAL V ACCINE (1 of 2 - PCV13) [code = 65+ PNEUMOCOCCAL VACCINE (1 of 2 - PCV13)] [facility] Future Scheduled Test 1992 00:00:00 COLONOSCOPY SCREEN ING [code = COLONOSCOPY SCREENING] [facility] Future Scheduled Test 1992 00:00:00 SHINGLES VACCINES (#1) [code = SHINGLES VACCINES (#1)] [facility] Encounters Start Date/Time End Date/Time Encounter Type Admission Type [facility] Care Department Encounter ID Source 2019-09-20 00:00:00 2019-09-20 00:00:00 Outpatient EBONY KRAFT [facility] [id number] [facility] 2019-05-29 00:00:00 2019-05-29 00:00:00 Outpatient EBONY KRAFT [facility] [id number] [facility] 2019-02-17 05:59:00 2019-02-17 06:44:00 Departed Emergency Room [facility] [id number] [facility] 2018-12-03 10:46:00 2018-12-03 10:46:00 Emergency [address] [facility] 2018-11-16 17:30:00 2018-11-17 00:01:00 Departed Emergency Room 1 TRACY GOODMAN [facility] [id number] [facility] 2018-10-24 03:52:00 2018-10-24 06:21:00 Departed Emergency Room 1 WILEY GONZALEZ [facility] [id number] [facility] 2018-08-31 07:11:00 2018-08-31 09:01:00 Departed Emergency Room [facility] [id number] [facility] 2018-06-30 09:29:00 2018-06-30 12:05:00 Departed Emergency Room 1 EMETERIO PERRY [facility] [id number] [facility] 2018-04-13 07:51:00 2018-04-13 10:53:00 Departed Emergency Room 1 TRACY GOODMAN [facility] [id number] [facility] 2018-01-20 16:14:00 2018-01-20 17:55:00 Departed Emergency Room [facility] [id number] [facility] 2017-12-03 08:32:00 2017-12-03 11:42:00 Departed Emergency Room 1 VIVIANE SMITH [facility] [id number] [facility] 2017-11-14 07:13:00 2017-11-14 09:02:00 Departed Emergency Room 1 EMETERIO PERRY [facility] [id number] [facility] 2017-08-14 08:25:00 2017-08-14 12:00:00 Departed Emergency Room [facility] [id number] [facility] 2017-05-20 08:30:00 2017-05-20 11:15:00 Departed Emergency Room [facility] [id number] [facility] 2017-03-18 05:13:00 2017-03-18 05:13:00 Registered Surgical Day Car LEANNA Hogue [facility] [id number] [facility] 2017-01-28 08:40:00 2017-01-28 12:32:00 Departed Emergency Room ER MELISA SQUIRES [facility] [id number] [facility] 2016-10-11 09:55:00 2016-10-13 13:06:00 Discharged Inpatient [facility] [id number] [facility] Results Test Description Test Time Test Comments Results Result Comments Source US Thyroid 2019-05-29 11:50:27 Hm Interface , Radiology Results 05/29/2019 11:53 AM CSTEXAMINATION: US THYROIDCLINICAL HISTORY: J30.1 Allergic rhinitis due to pollen, Thyroid nodule incidental on CT MR US no risk factor sCOMPARISON: Ultrasound biopsy of the thyroid January 25, 2019FINDINGS:The right thyroid lobe measures 2.9 x 1.2 x 1.1 cm.The isthmus is 0.2 mm in thickness.The left thyroid lobe measures 5.4 x 2.3 x 2.9 cm.The thyroid gland is slightly heterogenoeus in echogenicity without hypervascularity. No enlarged lymph nodes around the thyroid gland. .NODULE 1 Location: Right lobe Size: 1.0 cm, Composition: Cystic solid Echogenicity: Isoechoic Shape: Wider than tall Margin: Indistinct Echogenic foci: No calcification.TOTAL POINTS: 2, Ti-RADS 2NODULE 2 Location: Right lobe Size: . 0.5 cm, Composition: Predominantly solid Echogenicity: Hypoechoic Shape: Wider than tall Margin: Smooth margin Echogenic foci: No calcificationsTOTAL POINTS: 4, TI RADS 4NODULE 3 Location: Left lobe Size: 1.8 cm, Composition: Predominantly solid Echogenicity: Echogenic Shape: Wider than tall Margin: Smooth margin Echogenic foci: No calcificationsTOTAL POINTS: 3, TI RADS 3.NODULE 4 Location: Left lobe Size: 1.7 cm, Composition: Predominantly solid Echogenicity: Echogenic Shape: Wider than tall Margin: Smooth margin Echogenic foci: No calcificationsTOTAL POINTS: 3, TI RADS 3.NODULE 5 Location: Left lobe Size: 1.6 cm, Composition: Predominant a cystic Echogenicity: Anechoic Shape: Wider than tall Margin: Smooth margin Echogenic foci: No calcificationsTOTAL POINTS: 0, TI RADS 1.NODULE 6 Location: Left lobe Size: 3.4 cm, stable from the prior biopsy images. Composition: Cystic solid Echogenicity: Isoechoic Shape: Wider than tall Margin: Indistinct Echogenic foci: Coarse calcificationTOTAL POINTS: 3, TI RADS 3.IMPRESSION:Dominant left thyroid lobe nodule stable from the prior biopsy.Multinodular thyroid gland can be followed up with thyroid ultrasound in one year.[id number] [facility] SCR MAMM BILATERAL NANCY CAD DIGITAL 2019-05-18 09:33:12 - SCR MAMM BILATERAL NANCY CAD DIGITALBILATERAL DIGITAL SCREENING MAMMOGRAM 3D/2D WITH CAD: 05/18/2019CLINICAL: Asymptomatic. Digital breast tomosynthesis was performed in addition to routine CC and MLO views. Current mammographic images were evaluated by either a [employer] M-Vu or a [employer] ImageChecker CAD (computer aided detection system). Comparison is made to exams dated 05/09/2018 mammogram, 04/13 mammogram, and 01/27/2016 mammogram - [facility]. There are scattered fibroglandular tissues in both breasts. There are benign calcifications in both breasts. No suspicious mass, architectural distortion, malignant type calcification, or lymph node abnormality detected. Breast architecture is stable compared to prior exams.IMPRESSION: BENIGNThere is no mammographic evidence of malignancy. Resume annual screening mammography in one year. Fredi Almaguer M.D. ss/penrad:05/18/2019 09:33:12 Crane Chaser: Maria Victoria Sharma , [facility] sent: BIRADS 1-2 Normal Mammogram BI-RADS: 2 Benign Urine WBC 2019-02-17 06:26:00 Test Item Urine WBC (test code = 5821-4) 0-5 0-5 [facility] HospitalU[facility] SNJ1270-85-55 06:26:00* Test Item Value Reference Range Interpretation Comments Urine RBC (test code = 16674-3) 0-5 0-5 [facility] Cromlxvj9655-36-69 06:26:00* Test Item Value Reference Range Interpretation Comments Urine Bacteria (test code = 99078-8) RARE NONE [facility] Epithelial Nglnx0386-16-15 06:26:00 * Test Item Value Reference Range Interpretation Comments Urine Epithelial Cells (test code = 54335-1) FEW NONE [facility] Hbksn4702-36-69 06:18:00* Test Item Value Reference Range Interpretation Comments Urine Color (test code = 5778-6) YELLOW YELLOW [facility] Zulpedz1758-13-53 06:18:00* Test Item Value Reference Range Interpretation Comments Urine Clarity (test code = 24231-8) CLEAR CLEAR [facility] Specific Hdygrsf8772-01-62 06:18:00 * Test Item Value Reference Range Interpretation Comments Urine Specific Weinert (test code = 5811-5) 1.015 1.010-1.02 5 [facility] eS2318-06-87 06:18:00* Test Item Value Reference Range Interpretation Comments Urine pH (test code = 50279-0) 7 5-7 [facility] Leukocyte Mleizabe9370-53-12 06:18:00* Test Item Value Reference Range Interpretation Comments Urine Leukocyte Esterase (test code = 85771-5) NEGATIVE NEGATIV E [facility] Fnmorwi1272-26-11 06:18:00* Test Item Value Reference Range Interpretation Comments Urine Nitrite (test code = 55332-0) NEGATIVE NEGATIVE [facility] Petrqlm1883-27-40 06:18:00* Test Item Value Reference Range Interpretation Comments Urine Protein (test code = 00612-5) NEGATIVE NEGATIVE [facility] Glucose (UA)2019-02-17 06:18:00* Test Item Value Reference Range Interpretation Comments Urine Glucose (UA) (test code = 55282-9) NEGATIVE NEGATIVE [facility] Yhrypel2725-40-65 06:18:00* Test Item Value Reference Range Interpretation Comments Urine Ketones (test code = 22846-5) NEGATIVE NEGATIVE [facility] Dfmfjbljmeuo5656-03-77 06:18:00* Test Item Value Reference Range Interpretation Comments Urine Urobilinogen (test code = 62036-4) 0.2 0.2-1 [facility] Qsoazyoek8566-48-56 06:18:00* Test Item Value Reference Range Interpretation Comments Urine Bilirubin (test code = 1977-8) NEGATIVE NEGATIVE [facility] Sdias3929-53-89 06:18:00* Test Item Value Reference Range Interpretation Comments Urine Blood (test code = 68735-3) NEGATIVE NEGATIVE [facility] HospitalCreatine Kinase CA9315-41-75 23:29:00* Test Item Value Reference Range Interpretation Comments Creatine Kinase MB (test code = 06497-8) 1.50 0-5.0 [facility] HospitalTroponin B0256-64-88 23:29:00* Test Item Value Reference Range Interpretation Comments Troponin I (test code = KUJ9112) < 0.001 0-0.300 [facility] HospitalCreatine Kinase KN3907-33-91 23:29:00* Test Item Value Reference Range Interpretation Comments Creatine Kinase MB (test code = 45649-9) 1.50 0-5.0 [facility] HospitalTroponin Y8114-58-01 23:29:00* Test Item Value Reference Range Interpretation Comments Troponin I (test code = PUK2454) < 0.001 0-0.300 [facility] Mzffj0374-88-22 23:22:00* Test Item Value Reference Range Interpretation Comments Sodium Level (test code = 2951-2) 139 136-145 [facility] HospitalPotassium Fuadh6281-26-62 23:22:00* Test Item Value Reference Range Interpretation Comments Potassium Level (test code = 2823-3) 3.7 3.5-5.1 [facility] HospitalChloride Uoush4896-99-37 23:22:00* Test Item Value Reference Range Interpretation Comments Chloride Level (test code = 2075-0) 101 98-107 [facility] HospitalCarbon Dioxide Wicbv6243-65-23 23:22:00* Test Item Value Reference Range Interpretation Comments Carbon Dioxide Level (test code = 2028-9) 22 22-29 [facility] HospitalAnion Wyj1042-73-17 23:22:00* Test Item Value Reference Range Interpretation Comments Anion Gap (test code = 32395-2) 19.7 8-16 H [facility] HospitalBlood Urea Nznlhqqz8403-14-33 23:22:00* Test Item Value Reference Range Interpretation Comments Blood Urea Nitrogen (test code = 3094-0) 15 7-26 [facility] HospitalCreatinine2019-08-07 23:22:00* Test Item Value Reference Range Interpretation Comments Creatinine (test code = 2160-0) 0.71 0.57-1.11 [facility] HospitalBUN/Creatinine Kijmx6759-21-44 23:22:00* Test Item Value Reference Range Interpretation Comments BUN/Creatinine Ratio (test code = 3097-3) 21 6-25 [facility] HospitalEstimat Glomerular Filtration Rate 2018-11-16 23:22:00* Test Item Value Reference Range Interpretation Comments Estimat Glomerular Filtration Rate (test code = 323144586) > 60 >60 Ranges were taken from the National Kidney Disease Education Program and the [facility] literature.Reference ranges:60 or greater: Nooloj87-72 ( for 3 consecutive months): Chronic kidney disease 15 or less: Kidney failureRolling Plains Memorial HospitalGlucose Zfkfu5666-92-47 23:22:00* Test Item Value Reference Range Interpretation Comments Glucose Level (test code = XLO3682) 147 74-118 H [facility] HospitalCalcium Ccrgq2230-60-47 23:22:00* Test Item Value Reference Range Interpretation Comments Calcium Level (test code = 84141-4) 9.8 8.4-10.2 [facility] HospitalTotal Vrwmterxv3773-61-79 23:22:00* Test Item Value Reference Range Interpretation Comments Total Bilirubin (test code = 1975-2) 0.9 0.2-1.2 [facility] HospitalAspartate Amino Transf (AST/SGOT) 2018-11-16 23:22:00* Test Item Value Reference Range Interpretation Comments Aspartate Amino Transf (AST/SGOT) (test code = Aspartate Amino Transf (AST/SGOT)) 18 5-34 [facility] HospitalAlanine Aminotransferase (ALT/SGPT) 2018-11-16 23:22:00* Test Item Value Reference Range Interpretation Comments Alanine Aminotransferase (ALT/SGPT) (test code = 1742-6) 16 0-55 [facility] HospitalTotal Tgznpck3573-83-33 23:22:00* Test Item Value Reference Range Interpretation Comments Total Protein (test code = 2885-2) 7.5 6.5-8.1 [facility] HospitalAlbumin2019-08-07 23:22:00* Test Item Value Reference Range Interpretation Comments Albumin (test code = 1751-7) 4.1 3.5-5.0 [facility] HospitalGlobulin2019-08-07 23:22:00* Test Item Value Reference Range Interpretation Comments Globulin (test code = 67578-4) 3.4 2.3-3.5 [facility] HospitalAlbumin/Globulin Wkhkw1633-16-82 23:22:00 * Test Item Value Reference Range Interpretation Comments Albumin/Globulin Ratio (test code = 1759-0) 1.2 0.8-2.0 [facility] HospitalAlkaline Tagflddfgsj0425-13-07 23:22:00* Test Item Value Reference Range Interpretation Comments Alkaline Phosphatase (test code = 6768-6) 81 40-150 [facility] HospitalCreatine Fpmmcq3546-24-92 23:22:00* Test Item Value Reference Range Interpretation Comments Creatine Kinase (test code = 2157-6) 59 29-168 [facility] HospitalLipase2019-08-07 23:22:00* Test Item Value Reference Range Interpretation Comments Lipase (test code = 3040-3) 8 8-78 [facility] Xhfrq0133-19-83 23:22:00* Test Item Value Reference Range Interpretation Comments Sodium Level (test code = 2951-2) 139 136-145 [facility] HospitalPotassium Aucap0965-15-28 23:22:00* Test Item Value Reference Range Interpretation Comments Potassium Level (test code = 2823-3) 3.7 3.5-5.1 [facility] HospitalChloride Ayquw0785-78-85 23:22:00* Test Item Value Reference Range Interpretation Comments Chloride Level (test code = 2075-0) 101 98-107 [facility] HospitalCarbon Dioxide Cybac3986-39-63 23:22:00* Test Item Value Reference Range Interpretation Comments Carbon Dioxide Level (test code = 2028-9) 22 29 [facility] HospitalAnion Jfp2145-10-72 23:22:00* Test Item Value Reference Range Interpretation Comments Anion Gap (test code = 92949-5) 19.7 8-16 H [facility] HospitalBlood Urea Dfvofvxf7177-72-17 23:22:00* Test Item Value Reference Range Interpretation Comments Blood Urea Nitrogen (test code = 3094-0) 15 7-26 [facility] HospitalCreatinine2019-08-07 23:22:00* Test Item Value Reference Range Interpretation Comments Creatinine (test code = 2160-0) 0.71 0.57-1.11 [facility] HospitalBUN/Creatinine Bxabq0552-81-47 23:22:00* Test Item Value Reference Range Interpretation Comments BUN/Creatinine Ratio (test code = 3097-3) 21 6- [facility] HospitalEstimat Glomerular Filtration Rate 2018-11-16 23:22:00* Test Item Value Reference Range Interpretation Comments Estimat Glomerular Filtration Rate (test code = 270965880) > 60 >60 Ranges were taken from the National Kidney Disease Education Program and the [facility] Kid[facility] literature.Reference ranges:60 or greater: Fvxiik36-48 ( for 3 consecutive months): Chronic kidney disease 15 or less: Kidney failureRolling Plains Memorial HospitalGlucose Gdqvg5684-27-09 23:22:00* Test Item Value Reference Range Interpretation Comments Glucose Level (test code = VXU7576) 147 74-118 H [facility] HospitalCalcium Dnvnf3550-35-52 23:22:00* Test Item Value Reference Range Interpretation Comments Calcium Level (test code = 49968-1) 9.8 8.4-10.2 [facility] HospitalTotal Tbysqwfjc9302-42-61 23:22:00* Test Item Value Reference Range Interpretation Comments Total Bilirubin (test code = 1975-2) 0.9 0.2-1.2 [facility] HospitalAspartate Amino Transf (AST/SGOT) 2018-11-16 23:22:00* Test Item Value Reference Range Interpretation Comments Aspartate Amino Transf (AST/SGOT) (test code = Aspartate Amino Transf (AST/SGOT)) 18 5-34 [facility] HospitalAlanine Aminotransferase (ALT/SGPT) 2018-11-16 23:22:00* Test Item Value Reference Range Interpretation Comments Alanine Aminotransferase (ALT/SGPT) (test code = 1742-6) 16 0-55 [facility] HospitalTotal Lpggyyc0429-44-28 23:22:00* Test Item Value Reference Range Interpretation Comments Total Protein (test code = 2885-2) 7.5 6.5-8.1 [facility] HospitalAlbumin2019-08-07 23:22:00* Test Item Value Reference Range Interpretation Comments Albumin (test code = 1751-7) 4.1 3.5-5.0 [facility] HospitalGlobulin2019-08-07 23:22:00* Test Item Value Reference Range Interpretation Comments Globulin (test code = 66253-2) 3.4 2.3-3.5 [facility] HospitalAlbumin/Globulin Ntayf2802-42-52 23:22:00 * Test Item Value Reference Range Interpretation Comments Albumin/Globulin Ratio (test code = 1759-0) 1.2 0.8-2.0 [facility] HospitalAlkaline Kouxfxgevrb1906-48-33 23:22:00* Test Item Value Reference Range Interpretation Comments Alkaline Phosphatase (test code = 6768-6) 81 40-150 [facility] HospitalCreatine Qltmhe0632-03-01 23:22:00* Test Item Value Reference Range Interpretation Comments Creatine Kinase (test code = 2157-6) 59 29-168 [facility] HospitalLipase2019-08-07 23:22:00* Test Item Value Reference Range Interpretation Comments Lipase (test code = 3040-3) 8 8-78 [facility] HospitalWhite Blood Pvfxu3016-21-98 23:06:00* Test Item Value Reference Range Interpretation Comments White Blood Count (test code = 6690-2) 7.10 4.8-10.8 [facility] HospitalRed Blood Oftyj1472-75-53 23:06:00* Test Item Value Reference Range Interpretation Comments Red Blood Count (test code = 789-8) 4.66 3.6-5.1 [facility] HospitalHemoglobin2019-08-07 23:06:00* Test Item Value Reference Range Interpretation Comments Hemoglobin (test code = 47401-2) 10.3 12.0-16.0 L [facility] HospitalHematocrit2019-08-07 23:06:00* Test Item Value Reference Range Interpretation Comments Hematocrit (test code = 4544-3) 34.8 34.2-44.1 [facility] HospitalMean Corpuscular Ssczys5033-81-77 23:06:00* Test Item Value Reference Range Interpretation Comments Mean Corpuscular Volume (test code = 787-2) 74.7 81-99 L [facility] HospitalMean Corpuscular Ovzkalnyvy0793-61-24 23:06:00* Test Item Value Reference Range Interpretation Comments Mean Corpuscular Hemoglobin (test code = 785-6) 22.1 28-32 L [facility] HospitalMean Corpuscular Hemoglobin Concent 2018-11-16 23:06:00* Test Item Value Reference Range Interpretation Comments Mean Corpuscular Hemoglobin Concent (test code = 786-4) 29.6 31-35 L [facility] HospitalRed Cell Distribution Chomi3362-21-90 23:06:00* Test Item Value Reference Range Interpretation Comments Red Cell Distribution Width (test code = 39894-2) 16.1 11.7 -14.4 H [facility] HospitalPlatelet Gyomp0565-13-90 23:06:00* Test Item Value Reference Range Interpretation Comments Platelet Count (test code = 777-3) 291 140-360 [facility] HospitalNeutrophils (%) (Auto)2018-11-16 23:06:00 * Test Item Value Reference Range Interpretation Comments Neutrophils (%) (Auto) (test code = 60327-1) 52.5 38.7-80.0 [facility] HospitalLymphocytes (%) (Auto)2018-11-16 23:06:00 * Test Item Value Reference Range Interpretation Comments Lymphocytes (%) (Auto) (test code = 736-9) 33.0 18.0-39.1 [facility] HospitalMonocytes (%) (Auto)2018-11-16 23:06:00* Test Item Value Reference Range Interpretation Comments Monocytes (%) (Auto) (test code = 5905-5) 12.4 4.4-11.3 H [facility] HospitalEosinophils (%) (Auto)2018-11-16 23:06:00 * Test Item Value Reference Range Interpretation Comments Eosinophils (%) (Auto) (test code = 713-8) 1.4 0.0-6.0 [facility] HospitalBasophils (%) (Auto)2018-11-16 23:06:00* Test Item Value Reference Range Interpretation Comments Basophils (%) (Auto) (test code = 706-2) 0.4 0.0-1.0 [facility] HospitalIM GRANULOCYTES %2018-11-16 23:06:00* Test Item Value Reference Range Interpretation Comments IM GRANULOCYTES % (test code = IM GRANULOCYTES %) 0.3 0.0- 1.0 [facility] HospitalNeutrophils # (Auto)2018-11-16 23:06:00* Test Item Value Reference Range Interpretation Comments Neutrophils # (Auto) (test code = 751-8) 3.7 2.1-6.9 [facility] HospitalLymphocytes # (Auto)2018-11-16 23:06:00* Test Item Value Reference Range Interpretation Comments Lymphocytes # (Auto) (test code = 83453-2) 2.3 1.0-3.2 [facility] HospitalMonocytes # (Auto)2018-11-16 23:06:00* Test Item Value Reference Range Interpretation Comments Monocytes # (Auto) (test code = 742-7) 0.9 0.2-0.8 H [facility] HospitalEosinophils # (Auto)2018-11-16 23:06:00* Test Item Value Reference Range Interpretation Comments Eosinophils # (Auto) (test code = 711-2) 0.1 0.0-0.4 [facility] HospitalBasophils # (Auto)2018-11-16 23:06:00* Test Item Value Reference Range Interpretation Comments Basophils # (Auto) (test code = 704-7) 0.0 0.0-0.1 [facility] HospitalAbsolute Immature Granulocyte (auto 2018-11-16 23:06:00* Test Item Value Reference Range Interpretation Comments Absolute Immature Granulocyte (auto (wandy t code = Absolute Immature Granulocyte (auto) 0.02 0-0.1 [facility] HospitalWhite Blood Ihqee6006-00-87 23:06:00* Test Item Value Reference Range Interpretation Comments White Blood Count (test code = 6690-2) 7.10 4.8-10.8 [facility] HospitalRed Blood Jjpjs7237-69-86 23:06:00* Test Item Value Reference Range Interpretation Comments Red Blood Count (test code = 789-8) 4.66 3.6-5.1 [facility] HospitalHemoglobin2019-08-07 23:06:00* Test Item Value Reference Range Interpretation Comments Hemoglobin (test code = 40169-6) 10.3 12.0-16.0 L [facility] HospitalHematocrit2019-08-07 23:06:00* Test Item Value Reference Range Interpretation Comments Hematocrit (test code = 4544-3) 34.8 34.2-44.1 [facility] HospitalMean Corpuscular Tfhxdl3857-13-57 23:06:00* Test Item Value Reference Range Interpretation Comments Mean Corpuscular Volume (test code = 787-2) 74.7 81-99 L [facility] HospitalMean Corpuscular Bdrosuuorl1258-31-32 23:06:00* Test Item Value Reference Range Interpretation Comments Mean Corpuscular Hemoglobin (test code = 785-6) 22.1 28-32 L [facility] HospitalMean Corpuscular Hemoglobin Concent 2018-11-16 23:06:00* Test Item Value Reference Range Interpretation Comments Mean Corpuscular Hemoglobin Concent (test code = 786-4) 29.6 31-35 L [facility] HospitalRed Cell Distribution Ilvbk0409-42-96 23:06:00* Test Item Value Reference Range Interpretation Comments Red Cell Distribution Width (test code = 18997-3) 16.1 11.7 -14.4 H [facility] HospitalPlatelet Blwzq0720-74-44 23:06:00* Test Item Value Reference Range Interpretation Comments Platelet Count (test code = 777-3) 291 140-360 [facility] HospitalNeutrophils (%) (Auto)2018-11-16 23:06:00 * Test Item Value Reference Range Interpretation Comments Neutrophils (%) (Auto) (test code = 58700-8) 52.5 38.7-80.0 [facility] HospitalLymphocytes (%) (Auto)2018-11-16 23:06:00 * Test Item Value Reference Range Interpretation Comments Lymphocytes (%) (Auto) (test code = 736-9) 33.0 18.0-39.1 [facility] HospitalMonocytes (%) (Auto)2018-11-16 23:06:00* Test Item Value Reference Range Interpretation Comments Monocytes (%) (Auto) (test code = 5905-5) 12.4 4.4-11.3 H [facility] HospitalEosinophils (%) (Auto)2018-11-16 23:06:00 * Test Item Value Reference Range Interpretation Comments Eosinophils (%) (Auto) (test code = 713-8) 1.4 0.0-6.0 [facility] HospitalBasophils (%) (Auto)2018-11-16 23:06:00* Test Item Value Reference Range Interpretation Comments Basophils (%) (Auto) (test code = 706-2) 0.4 0.0-1.0 [facility] HospitalIM GRANULOCYTES %2018-11-16 23:06:00* Test Item Value Reference Range Interpretation Comments IM GRANULOCYTES % (test code = IM GRANULOCYTES %) 0.3 0.0- 1.0 [facility] HospitalNeutrophils # (Auto)2018-11-16 23:06:00* Test Item Value Reference Range Interpretation Comments Neutrophils # (Auto) (test code = 751-8) 3.7 2.1-6.9 [facility] HospitalLymphocytes # (Auto)2018-11-16 23:06:00* Test Item Value Reference Range Interpretation Comments Lymphocytes # (Auto) (test code = 46879-2) 2.3 1.0-3.2 [facility] HospitalMonocytes # (Auto)2018-11-16 23:06:00* Test Item Value Reference Range Interpretation Comments Monocytes # (Auto) (test code = 742-7) 0.9 0.2-0.8 H [facility] HospitalEosinophils # (Auto)2018-11-16 23:06:00* Test Item Value Reference Range Interpretation Comments Eosinophils # (Auto) (test code = 711-2) 0.1 0.0-0.4 [facility] HospitalBasophils # (Auto)2018-11-16 23:06:00* Test Item Value Reference Range Interpretation Comments Basophils # (Auto) (test code = 704-7) 0.0 0.0-0.1 [facility] HospitalAbsolute Immature Granulocyte (auto 2018-11-16 23:06:00* Test Item Value Reference Range Interpretation Comments Absolute Immature Granulocyte (auto (wandy t code = Absolute Immature Granulocyte (auto) 0.02 0-0.1 [facility] HospitalCHEST SINGLE (PORTABLE)2018-11-16 22:54:00 [place] [address] Patient Name: AMNA GALICIA MR #: [id number] : 1940 Age/Sex: 77/F Req #: [id number] Adm Physician: Ordered by: EVANGELINA KENDALL MD Report #: [id number] Location: ER Room/Bed: Procedure: [id number] DX/ CHEST SINGLE (PORTABLE) Exam Date: 11/16/18 Exam Shabbir e: 2225 REPORT STATUS: Signed EX AMINATION: CHEST SINGLE (PORTABLE) INDICATION: Chest pain. COMPAR ANGELO: 10/24/2018. FINDINGS: PA and lateral views TUBES and LINES : None. LUNGS: Lungs are adequately inflated.. Bibasilar platelike atele ctasis versus scarring again observed. PLEURA: No pleural effusion or pn eumothorax. HEART AND MEDIASTINUM: Cardiac size is mildly enlarged. Promin ence of the pulmonary salty bilaterally suggestive of enlarged pulmonary arteri es. The thoracic tortuous and folded with calcification of the arch. BONE S AND SOFT TISSUES: No acute osseous lesion. Soft tissues are unremarkable. UPPER ABDOMEN: No free air under the diaphragm. Large hiatal hernia. I MPRESSION: Bibasilar platelike atelectasis versus scarring again observed. Signed by: Dr. Mann Vargas M.D. on 11/16/2018 10:56 PM Dict ated By: KALINA VARGAS MD, MD 55 Transcribed By: SIRI on 11/16/182255 COPY TO: EVANGELINA KENDALL MD CHEST 2 UUWFG5522-38-28 05:46:00 [place] [address] Patient Name: AMNA GALICIA MR #: [id number] : 1940 Age/Sex: 77/F Req #: [id number] Adm Physician: Ordered by: WILEY GONZALEZ MD Report #: [id number] Location: ER Room/Bed: Procedure: [id number] DX/CHEST 2 VIEWS Exam Date: 10/24/18 Exam Time: 08 01 REPORT STATUS: Signed EXAMINA TION: CHEST 2 VIEWS INDICATION: Short of breath COMPARISON: Ab dominal CT 04/13/2018, chest radiograph 06/30/2018 FINDINGS: PA and late ral views TUBES and LINES: None. LUNGS: Lungs are well inflated. There is mild prominence of the central pulmonary vasculature, consistent w ith pulmonary venous congestion. Mild bibasilar atelectasis. No consolidations . PLEURA: No pleural effusion or pneumothorax. HEART AND MEDIASTINUM: The cardiomediastinal silhouette is unremarkable. BONES AND SOFT TISS UES: No acute osseous lesion. Soft tissues are unremarkable. UPPER ABDO MEN: No free air under the diaphragm. Large hiatal hernia. IMPRESSION: Chronic scattered areas of subsegmental atelectasis/scarring and mild pulmonary vascular congestion. Large hiatal hernia. Signed by: Garth Singh DO on 10/24/2018 5:52 AM Dictated By: GARTH SINGH DO 1 Transcribed By: SIRI on 10/24/18551 COPY TO: WILEY GONZALEZ MD B-Type Natriuretic Fjbpzkv3220-20-99 05:23:00* Test Item Value Reference Range Interpretation Comments B-Type Natriuretic Peptide (test code = 31487-3) 44.7 0-100 [facility] HospitalCreatine Kinase FH2278-39-83 05:23:00* Test Item Value Reference Range Interpretation Comments Creatine Kinase MB (test code = 25208-6) 1.60 0-5.0 [facility] HospitalTroponin U0797-82-53 05:23:00* Test Item Value Reference Range Interpretation Comments Troponin I (test code = FSO8553) 0.005 0-0.300 [facility] HospitalB-Type Natriuretic Ujuxtsx4141-14-95 05:23:00* Test Item Value Reference Range Interpretation Comments B-Type Natriuretic Peptide (test code = 35279-6) 44.7 0-100 [facility] HospitalB-Type Natriuretic Pcwjjvw2717-27-02 05:23:00* Test Item Value Reference Range Interpretation Comments B-Type Natriuretic Peptide (test code = 67521-0) 44.7 0-100 [facility] Osojm0880-02-99 05:07:00* Test Item Value Reference Range Interpretation Comments Sodium Level (test code = 2951-2) 140 136-145 [facility] HospitalPotassium Nubgh5024-33-53 05:07:00* Test Item Value Reference Range Interpretation Comments Potassium Level (test code = 2823-3) 3.7 3.5-5.1 [facility] HospitalChloride Kntju9886-19-62 05:07:00* Test Item Value Reference Range Interpretation Comments Chloride Level (test code = 2075-0) 103 98-107 [facility] HospitalCarbon Dioxide Mwwoy8624-11-20 05:07:00* Test Item Value Reference Range Interpretation Comments Carbon Dioxide Level (test code = 2028-9) 25 22-29 [facility] HospitalAnion Tbm5420-72-60 05:07:00* Test Item Value Reference Range Interpretation Comments Anion Gap (test code = 31422-6) 15.7 8-16 [facility] HospitalBlood Urea Jjcuvjkm1973-79-55 05:07:00* Test Item Value Reference Range Interpretation Comments Blood Urea Nitrogen (test code = 3094-0) 11 7-26 [facility] HospitalCreatinine2019-07-15 05:07:00* Test Item Value Reference Range Interpretation Comments Creatinine (test code = 2160-0) 0.68 0.57-1.11 [facility] HospitalBUN/Creatinine Wlmng1497-05-48 05:07:00* Test Item Value Reference Range Interpretation Comments BUN/Creatinine Ratio (test code = 3097-3) 16 6-25 [facility] HospitalEstimat Glomerular Filtration Rate 2018-10-24 05:07:00* Test Item Value Reference Range Interpretation Comments Estimat Glomerular Filtration Rate (test code = 807083896) > 60 >60 Ranges were taken from the National Kidney Disease Education Program and the [facility] Kid[facility] Foundation literature.Reference ranges:60 or greater: Soejxc44-53 ( for 3 consecutive months): Chronic kidney disease 15 or less: Kidney failureRolling Plains [facility] HospitalGlucose Alfde3229-16-74 05:07:00* Test Item Value Reference Range Interpretation Comments Glucose Level (test code = JZV8708) 147 74-118 H [facility] HospitalCalcium Fpnbw4704-97-39 05:07:00* Test Item Value Reference Range Interpretation Comments Calcium Level (test code = 96930-1) 8.7 8.4-10.2 [facility] HospitalTotal Tcwqaomie3250-21-52 05:07:00* Test Item Value Reference Range Interpretation Comments Total Bilirubin (test code = 1975-2) 0.9 0.2-1.2 [facility] HospitalAspartate Amino Transf (AST/SGOT) 2018-10-24 05:07:00* Test Item Value Reference Range Interpretation Comments Aspartate Amino Transf (AST/SGOT) (test code = Aspartate Amino Transf (AST/SGOT)) 20 5-34 [facility] HospitalAlanine Aminotransferase (ALT/SGPT) 2018-10-24 05:07:00* Test Item Value Reference Range Interpretation Comments Alanine Aminotransferase (ALT/SGPT) (test code = 1742-6) 10 0-55 [facility] HospitalTotal Ddfeqpd1547-25-31 05:07:00* Test Item Value Reference Range Interpretation Comments Total Protein (test code = 2885-2) 7.0 6.5-8.1 [facility] HospitalAlbumin2019-07-15 05:07:00* Test Item Value Reference Range Interpretation Comments Albumin (test code = 1751-7) 3.9 3.5-5.0 [facility] HospitalGlobulin2019-07-15 05:07:00* Test Item Value Reference Range Interpretation Comments Globulin (test code = 28279-6) 3.1 2.3-3.5 [facility] HospitalAlbumin/Globulin Zpitp4780-80-36 05:07:00 * Test Item Value Reference Range Interpretation Comments Albumin/Globulin Ratio (test code = 1759-0) 1.3 0.8-2.0 [facility] HospitalAlkaline Pvqngcjqnyu7169-30-97 05:07:00* Test Item Value Reference Range Interpretation Comments Alkaline Phosphatase (test code = 6768-6) 80 40-150 [facility] HospitalCreatine Iiljrg6854-35-49 05:07:00* Test Item Value Reference Range Interpretation Comments Creatine Kinase (test code = 2157-6) 79 29-168 [facility] HospitalWhite Blood Bnuat4739-91-27 04:41:00* Test Item Value Reference Range Interpretation Comments White Blood Count (test code = 6690-2) 7.35 4.8-10.8 [facility] HospitalRed Blood Ejkcj5442-39-78 04:41:00* Test Item Value Reference Range Interpretation Comments Red Blood Count (test code = 789-8) 4.37 3.6-5.1 [facility] HospitalHemoglobin2019-07-15 04:41:00* Test Item Value Reference Range Interpretation Comments Hemoglobin (test code = 62588-5) 9.7 12.0-16.0 L [facility] HospitalHematocrit2019-07-15 04:41:00* Test Item Value Reference Range Interpretation Comments Hematocrit (test code = 4544-3) 33.7 34.2-44.1 L [facility] HospitalMean Corpuscular Yksbgn3136-42-37 04:41:00* Test Item Value Reference Range Interpretation Comments Mean Corpuscular Volume (test code = 787-2) 77.1 81-99 L [facility] HospitalMean Corpuscular Cysjuojsyq7902-89-51 04:41:00* Test Item Value Reference Range Interpretation Comments Mean Corpuscular Hemoglobin (test code = 785-6) 22.2 28-32 L [facility] HospitalMean Corpuscular Hemoglobin Concent 2018-10-24 04:41:00* Test Item Value Reference Range Interpretation Comments Mean Corpuscular Hemoglobin Concent (test code = 786-4) 28.8 31-35 L [facility] HospitalRed Cell Distribution Rhuqa2634-42-76 04:41:00* Test Item Value Reference Range Interpretation Comments Red Cell Distribution Width (test code = 49167-7) 15.9 11.7 -14.4 H [facility] HospitalPlatelet Lsxsk8763-73-53 04:41:00* Test Item Value Reference Range Interpretation Comments Platelet Count (test code = 777-3) 281 140-360 [facility] HospitalNeutrophils (%) (Auto)2018-10-24 04:41:00 * Test Item Value Reference Range Interpretation Comments Neutrophils (%) (Auto) (test code = 96451-3) 64.6 38.7-80.0 [facility] HospitalLymphocytes (%) (Auto)2018-10-24 04:41:00 * Test Item Value Reference Range Interpretation Comments Lymphocytes (%) (Auto) (test code = 736-9) 20.1 18.0-39.1 [facility] HospitalMonocytes (%) (Auto)2018-10-24 04:41:00* Test Item Value Reference Range Interpretation Comments Monocytes (%) (Auto) (test code = 5905-5) 12.8 4.4-11.3 H [facility] HospitalEosinophils (%) (Auto)2018-10-24 04:41:00 * Test Item Value Reference Range Interpretation Comments Eosinophils (%) (Auto) (test code = 713-8) 1.4 0.0-6.0 [facility] HospitalBasophils (%) (Auto)2018-10-24 04:41:00* Test Item Value Reference Range Interpretation Comments Basophils (%) (Auto) (test code = 706-2) 0.4 0.0-1.0 [facility] HospitalIM GRANULOCYTES %2018-10-24 04:41:00* Test Item Value Reference Range Interpretation Comments IM GRANULOCYTES % (test code = IM GRANULOCYTES %) 0.7 0.0- 1.0 [facility] HospitalNeutrophils # (Auto)2018-10-24 04:41:00* Test Item Value Reference Range Interpretation Comments Neutrophils # (Auto) (test code = 751-8) 4.8 2.1-6.9 [facility] HospitalLymphocytes # (Auto)2018-10-24 04:41:00* Test Item Value Reference Range Interpretation Comments Lymphocytes # (Auto) (test code = 06269-7) 1.5 1.0-3.2 [facility] HospitalMonocytes # (Auto)2018-10-24 04:41:00* Test Item Value Reference Range Interpretation Comments Monocytes # (Auto) (test code = 742-7) 0.9 0.2-0.8 H [facility] HospitalEosinophils # (Auto)2018-10-24 04:41:00* Test Item Value Reference Range Interpretation Comments Eosinophils # (Auto) (test code = 711-2) 0.1 0.0-0.4 [facility] HospitalBasophils # (Auto)2018-10-24 04:41:00* Test Item Value Reference Range Interpretation Comments Basophils # (Auto) (test code = 704-7) 0.0 0.0-0.1 [facility] HospitalAbsolute Immature Granulocyte (auto 2018-10-24 04:41:00* Test Item Value Reference Range Interpretation Comments Absolute Immature Granulocyte (auto (wandy t code = Absolute Immature Granulocyte (auto) 0.05 0-0.1 [facility] HospitalUrine AZI3457-66-76 08:34:00* Test Item Value Reference Range Interpretation Comments Urine WBC (test code = 5821-4) NONE 0-5 [facility] HospitalUrine IWB1029-55-93 08:34:00* Test Item Value Reference Range Interpretation Comments Urine RBC (test code = 43873-0) NONE 0-5 [facility] HospitalUrine Okgpdxyv8323-77-53 08:34:00* Test Item Value Reference Range Interpretation Comments Urine Bacteria (test code = 01513-7) NONE NONE [facility] HospitalUrine Epithelial Qpyvc2120-18-49 08:34:00 * Test Item Value Reference Range Interpretation Comments Urine Epithelial Cells (test code = 79287-7) MODERATE NONE [facility] HospitalUrine Transitional Epithelial Cells 2018-08-31 08:34:00* Test Item Value Reference Range Interpretation Comments Urine Transitional Epithelial Cells (test code = 8249-5) RARE NONE H [facility] OAR5884-62-92 08:34:00* Test Item Value Reference Range Interpretation Comments Urine WBC (test code = 5821-4) NONE 0-5 [facility] YNO2299-29-32 08:34:00* Test Item Value Reference Range Interpretation Comments Urine RBC (test code = 33086-2) NONE 0-5 [facility] Ksuvbbie2087-74-13 08:34:00* Test Item Value Reference Range Interpretation Comments Urine Bacteria (test code = 49497-8) NONE NONE [facility] Epithelial Hsbbt9869-52-53 08:34:00 * Test Item Value Reference Range Interpretation Comments Urine Epithelial Cells (test code = 42001-0) MODERATE NONE [facility] Transitional Epithelial Cells 2018-08-31 08:34:00* Test Item Value Reference Range Interpretation Comments Urine Transitional Epithelial Cells (test code = 8249-5) RARE NONE H [facility] XFV5069-29-33 08:34:00* Test Item Value Reference Range Interpretation Comments Urine WBC (test code = 5821-4) NONE 0-5 [facility] OSO2099-10-89 08:34:00* Test Item Value Reference Range Interpretation Comments Urine RBC (test code = 73295-1) NONE 0-5 [facility] Cmuymavs7991-67-44 08:34:00* Test Item Value Reference Range Interpretation Comments Urine Bacteria (test code = 05919-4) NONE NONE [facility] HospitalUrine Epithelial Insqu7011-61-27 08:34:00 * Test Item Value Reference Range Interpretation Comments Urine Epithelial Cells (test code = 22107-8) MODERATE NONE [facility] Transitional Epithelial Cells 2018-08-31 08:34:00* Test Item Value Reference Range Interpretation Comments Urine Transitional Epithelial Cells (test code = 8249-5) RARE NONE H [facility] HospitalUrine Transitional Epithelial Cells 2018-08-31 08:34:00* Test Item Value Reference Range Interpretation Comments Urine Transitional Epithelial Cells (test code = 8249-5) RARE NONE H [facility] HospitalUrine Eprge9136-36-55 08:25:00* Test Item Value Reference Range Interpretation Comments Urine Color (test code = 5778-6) YELLOW YELLOW [facility] HospitalUrine Edyonjj8627-90-17 08:25:00* Test Item Value Reference Range Interpretation Comments Urine Clarity (test code = 39991-2) CLEAR CLEAR [facility] HospitalUrine Specific Ovsgfii0223-66-96 08:25:00 * Test Item Value Reference Range Interpretation Comments Urine Specific Weinert (test code = 5811-5) 1.010 1.010-1.02 5 [facility] HospitalUrine bI0704-05-75 08:25:00* Test Item Value Reference Range Interpretation Comments Urine pH (test code = 41093-4) 6 5-7 [facility] HospitalUrine Leukocyte Imjghyxr7429-57-37 08:25:00* Test Item Value Reference Range Interpretation Comments Urine Leukocyte Esterase (test code = 5799-2) NEGATIVE NEGATIVE [facility] HospitalUrine Uciyron6065-80-54 08:25:00* Test Item Value Reference Range Interpretation Comments Urine Nitrite (test code = 07623-7) NEGATIVE NEGATIVE [facility] HospitalUrine Diibqto7654-98-80 08:25:00* Test Item Value Reference Range Interpretation Comments Urine Protein (test code = 5804-0) TRACE NEGATIVE H [facility] HospitalUrine Glucose (UA)2018-08-31 08:25:00* Test Item Value Reference Range Interpretation Comments Urine Glucose (UA) (test code = 2349-9) NEGATIVE NEGATIVE [facility] HospitalUrine Zvfimcr2100-56-49 08:25:00* Test Item Value Reference Range Interpretation Comments Urine Ketones (test code = 58403-1) NEGATIVE NEGATIVE [facility] HospitalUrine Haqhnpjhokvn8758-32-44 08:25:00* Test Item Value Reference Range Interpretation Comments Urine Urobilinogen (test code = 93936-2) 0.2 0.2-1 [facility] HospitalUrine Yhzpuwqeh2737-33-67 08:25:00* Test Item Value Reference Range Interpretation Comments Urine Bilirubin (test code = 1978-6) NEGATIVE NEGATIVE [facility] HospitalU[facility] Ygiht0637-28-96 08:25:00* Test Item Value Reference Range Interpretation Comments Urine Blood (test code = 93682-4) NEGATIVE NEGATIVE [facility] HospitalU[facility] Anklw4433-48-74 08:25:00* Test Item Value Reference Range Interpretation Comments Urine Color (test code = 5778-6) YELLOW YELLOW [facility] HospitalUrine Pnjfpwz2951-39-45 08:25:00* Test Item Value Reference Range Interpretation Comments Urine Clarity (test code = 14146-0) CLEAR CLEAR [facility] HospitalUrine Specific Thevisu0453-52-86 08:25:00 * Test Item Value Reference Range Interpretation Comments Urine Specific Weinert (test code = 5811-5) 1.010 1.010-1.02 5 [facility] HospitalUrine eH1554-05-09 08:25:00* Test Item Value Reference Range Interpretation Comments Urine pH (test code = 69769-8) 6 5-7 [facility] HospitalU[facility] Leukocyte Ujwrgtgh7116-23-09 08:25:00* Test Item Value Reference Range Interpretation Comments Urine Leukocyte Esterase (test code = 5799-2) NEGATIVE NEGATIVE [facility] HospitalUrine Uhaazqn2241-91-87 08:25:00* Test Item Value Reference Range Interpretation Comments Urine Nitrite (test code = 23373-5) NEGATIVE NEGATIVE [facility] HospitalU[facility] Tyvcyim8888-52-93 08:25:00* Test Item Value Reference Range Interpretation Comments Urine Protein (test code = 5804-0) TRACE NEGATIVE H [facility] HospitalUrine Glucose (UA)2018-08-31 08:25:00* Test Item Value Reference Range Interpretation Comments Urine Glucose (UA) (test code = 2349-9) NEGATIVE NEGATIVE [facility] HospitalUrine Fkgbnqt6081-95-16 08:25:00* Test Item Value Reference Range Interpretation Comments Urine Ketones (test code = 57929-2) NEGATIVE NEGATIVE [facility] HospitalUrine Xkernoktwwln5519-45-69 08:25:00* Test Item Value Reference Range Interpretation Comments Urine Urobilinogen (test code = 64046-1) 0.2 0.2-1 [facility] HospitalUrine Tbjlarkyn7459-66-21 08:25:00* Test Item Value Reference Range Interpretation Comments Urine Bilirubin (test code = 1978-6) NEGATIVE NEGATIVE [facility] Waevt4706-49-22 08:25:00* Test Item Value Reference Range Interpretation Comments Urine Blood (test code = 53457-0) NEGATIVE NEGATIVE [facility] HospitalU[facility] Zychc9583-85-92 08:25:00* Test Item Value Reference Range Interpretation Comments Urine Color (test code = 5778-6) YELLOW YELLOW [facility] HospitalUrine Tnhpmax3571-79-71 08:25:00* Test Item Value Reference Range Interpretation Comments Urine Clarity (test code = 04575-3) CLEAR CLEAR [facility] HospitalUrine Specific Uybcllx8967-44-89 08:25:00 * Test Item Value Reference Range Interpretation Comments Urine Specific Weinert (test code = 5811-5) 1.010 1.010-1.02 5 [facility] HospitalUrine iN3473-96-34 08:25:00* Test Item Value Reference Range Interpretation Comments Urine pH (test code = 39162-9) 6 5-7 [facility] HospitalU[facility] Leukocyte Cwmgauuj9458-33-78 08:25:00* Test Item Value Reference Range Interpretation Comments Urine Leukocyte Esterase (test code = 5799-2) NEGATIVE NEGATIVE [facility] HospitalUrine Cwwpuim3339-25-36 08:25:00* Test Item Value Reference Range Interpretation Comments Urine Nitrite (test code = 96409-6) NEGATIVE NEGATIVE [facility] HospitalUrine Sjbzvtw9858-62-99 08:25:00* Test Item Value Reference Range Interpretation Comments Urine Protein (test code = 5804-0) TRACE NEGATIVE H [facility] HospitalUrine Glucose (UA)2018-08-31 08:25:00* Test Item Value Reference Range Interpretation Comments Urine Glucose (UA) (test code = 2349-9) NEGATIVE NEGATIVE [facility] HospitalUrine Uwlselk5278-55-74 08:25:00* Test Item Value Reference Range Interpretation Comments Urine Ketones (test code = 08574-6) NEGATIVE NEGATIVE [facility] HospitalUrine Qsdjqqdixexv0202-54-15 08:25:00* Test Item Value Reference Range Interpretation Comments Urine Urobilinogen (test code = 98783-2) 0.2 0.2-1 [facility] HospitalUrine Utlmpbuke5602-56-90 08:25:00* Test Item Value Reference Range Interpretation Comments Urine Bilirubin (test code = 1978-6) NEGATIVE NEGATIVE [facility] HospitalUrine Kxttg4680-30-59 08:25:00* Test Item Value Reference Range Interpretation Comments Urine Blood (test code = 75515-6) NEGATIVE NEGATIVE [facility] Icvoh7083-96-56 08:19:00* Test Item Value Reference Range Interpretation Comments Sodium Level (test code = 2951-2) 139 136-145 [facility] HospitalPotassium Oxvpd5975-74-20 08:19:00* Test Item Value Reference Range Interpretation Comments Potassium Level (test code = 2823-3) 3.7 3.5-5.1 [facility] HospitalChloride Tnmrs2274-33-46 08:19:00* Test Item Value Reference Range Interpretation Comments Chloride Level (test code = 2075-0) 102 98-107 [facility] HospitalCarbon Dioxide Nuyxc0138-06-09 08:19:00* Test Item Value Reference Range Interpretation Comments Carbon Dioxide Level (test code = 2028-9) 26 22-29 [facility] HospitalAnion Gtk4661-13-83 08:19:00* Test Item Value Reference Range Interpretation Comments Anion Gap (test code = 07293-9) 14.7 8-16 [facility] HospitalBlood Urea Swjeqjqb2992-26-33 08:19:00* Test Item Value Reference Range Interpretation Comments Blood Urea Nitrogen (test code = 3094-0) 9 7-26 [facility] HospitalCreatinine2019-05-22 08:19:00* Test Item Value Reference Range Interpretation Comments Creatinine (test code = 2160-0) 0.70 0.57-1.11 [facility] HospitalBUN/Creatinine Ckfqy5693-38-11 08:19:00* Test Item Value Reference Range Interpretation Comments BUN/Creatinine Ratio (test code = 3097-3) 13 6-25 [facility] HospitalEstimat Glomerular Filtration Rate 2018-08-31 08:19:00* Test Item Value Reference Range Interpretation Comments Estimat Glomerular Filtration Rate (test code = 260014449) > 60 >60 Ranges were taken from the National Kidney Disease Education Program and the [facility] Kidney Foundation literature.Reference ranges:60 or greater: Tfeuim60-55 ( for 3 consecutive months): Chronic kidney disease 15 or less: Kidney failureRolling Plains [facility] HospitalGlucose Xlkjg0819-08-57 08:19:00* Test Item Value Reference Range Interpretation Comments Glucose Level (test code = UMM3968) 132 74-118 H [facility] HospitalCalcium Yvkbg9657-05-40 08:19:00* Test Item Value Reference Range Interpretation Comments Calcium Level (test code = 64247-7) 9.1 8.4-10.2 [facility] HospitalTotal Uooahazmw5752-46-92 08:19:00* Test Item Value Reference Range Interpretation Comments Total Bilirubin (test code = 1975-2) 1.0 0.2-1.2 [facility] HospitalAspartate Amino Transf (AST/SGOT) 2018-08-31 08:19:00* Test Item Value Reference Range Interpretation Comments Aspartate Amino Transf (AST/SGOT) (test code = Aspartate Amino Transf (AST/SGOT)) 26 5-34 [facility] HospitalAlanine Aminotransferase (ALT/SGPT) 2018-08-31 08:19:00* Test Item Value Reference Range Interpretation Comments Alanine Aminotransferase (ALT/SGPT) (test code = 1742-6) 22 0-55 [facility] HospitalTotal Laaoaim4091-11-41 08:19:00* Test Item Value Reference Range Interpretation Comments Total Protein (test code = 2885-2) 7.1 6.5-8.1 [facility] HospitalAlbumin2019-05-22 08:19:00* Test Item Value Reference Range Interpretation Comments Albumin (test code = 1751-7) 3.9 3.5-5.0 [facility] HospitalGlobulin2019-05-22 08:19:00* Test Item Value Reference Range Interpretation Comments Globulin (test code = 85232-6) 3.2 2.3-3.5 [facility] HospitalAlbumin/Globulin Jrxpd3203-55-78 08:19:00 * Test Item Value Reference Range Interpretation Comments Albumin/Globulin Ratio (test code = 1759-0) 1.2 0.8-2.0 [facility] HospitalAlkaline Smnksbfhjsp9275-01-87 08:19:00* Test Item Value Reference Range Interpretation Comments Alkaline Phosphatase (test code = 6768-6) 79 40-150 [facility] HospitalWhite Blood Wdckg5779-74-54 08:06:00* Test Item Value Reference Range Interpretation Comments White Blood Count (test code = 6690-2) 7.13 4.8-10.8 [facility] HospitalRed Blood Vlrov9114-10-27 08:06:00* Test Item Value Reference Range Interpretation Comments Red Blood Count (test code = 789-8) 4.57 3.6-5.1 [facility] HospitalHemoglobin2019-05-22 08:06:00* Test Item Value Reference Range Interpretation Comments Hemoglobin (test code = 34909-0) 10.5 12.0-16.0 L [facility] HospitalHematocrit2019-05-22 08:06:00* Test Item Value Reference Range Interpretation Comments Hematocrit (test code = 4544-3) 36.0 34.2-44.1 [facility] HospitalMean Corpuscular Xmrikz8205-63-76 08:06:00* Test Item Value Reference Range Interpretation Comments Mean Corpuscular Volume (test code = 787-2) 78.8 81-99 L [facility] HospitalMean Corpuscular Wynluxvqed5664-22-73 08:06:00* Test Item Value Reference Range Interpretation Comments Mean Corpuscular Hemoglobin (test code = 785-6) 23.0 28-32 L [facility] HospitalMean Corpuscular Hemoglobin Concent 2018-08-31 08:06:00* Test Item Value Reference Range Interpretation Comments Mean Corpuscular Hemoglobin Concent (test code = 786-4) 29.2 31-35 L [facility] HospitalRed Cell Distribution Wduep0418-92-82 08:06:00* Test Item Value Reference Range Interpretation Comments Red Cell Distribution Width (test code = 63711-3) 15.9 11.7 -14.4 H [facility] HospitalPlatelet Smhop1310-87-00 08:06:00* Test Item Value Reference Range Interpretation Comments Platelet Count (test code = 777-3) 286 140-360 [facility] HospitalNeutrophils (%) (Auto)2018-08-31 08:06:00 * Test Item Value Reference Range Interpretation Comments Neutrophils (%) (Auto) (test code = 39405-8) 69.2 38.7-80.0 [facility] HospitalLymphocytes (%) (Auto)2018-08-31 08:06:00 * Test Item Value Reference Range Interpretation Comments Lymphocytes (%) (Auto) (test code = 736-9) 18.7 18.0-39.1 [facility] HospitalMonocytes (%) (Auto)2018-08-31 08:06:00* Test Item Value Reference Range Interpretation Comments Monocytes (%) (Auto) (test code = 5905-5) 10.0 4.4-11.3 [facility] HospitalEosinophils (%) (Auto)2018-08-31 08:06:00 * Test Item Value Reference Range Interpretation Comments Eosinophils (%) (Auto) (test code = 713-8) 1.0 0.0-6.0 [facility] HospitalBasophils (%) (Auto)2018-08-31 08:06:00* Test Item Value Reference Range Interpretation Comments Basophils (%) (Auto) (test code = 706-2) 0.7 0.0-1.0 [facility] HospitalIM GRANULOCYTES %2018-08-31 08:06:00* Test Item Value Reference Range Interpretation Comments IM GRANULOCYTES % (test code = IM GRANULOCYTES %) 0.4 0.0- 1.0 [facility] HospitalNeutrophils # (Auto)2018-08-31 08:06:00* Test Item Value Reference Range Interpretation Comments Neutrophils # (Auto) (test code = 751-8) 4.9 2.1-6.9 [facility] HospitalLymphocytes # (Auto)2018-08-31 08:06:00* Test Item Value Reference Range Interpretation Comments Lymphocytes # (Auto) (test code = 35599-7) 1.3 1.0-3.2 [facility] HospitalMonocytes # (Auto)2018-08-31 08:06:00* Test Item Value Reference Range Interpretation Comments Monocytes # (Auto) (test code = 742-7) 0.7 0.2-0.8 [facility] HospitalEosinophils # (Auto)2018-08-31 08:06:00* Test Item Value Reference Range Interpretation Comments Eosinophils # (Auto) (test code = 711-2) 0.1 0.0-0.4 [facility] HospitalBasophils # (Auto)2018-08-31 08:06:00* Test Item Value Reference Range Interpretation Comments Basophils # (Auto) (test code = 704-7) 0.1 0.0-0.1 [facility] HospitalAbsolute Immature Granulocyte (auto 2018-08-31 08:06:00* Test Item Value Reference Range Interpretation Comments Absolute Immature Granulocyte (auto (wandy t code = Absolute Immature Granulocyte (auto) 0.03 0-0.1 [facility] HospitalCXR 1 VEW - SGWD7214-13-63 10:25:00 [place] [address] Patient Name: AMNA GALICIA MR #: [id number] : 1940 Age/Sex: 77/F Req #: [id number] Adm Physician: Ordered by: EMETERIO PERRY MD Report #: [id number] Location: [facility] Room/Bed: Procedure: [id number] H OPD/CXR 1 VEW - HOPD Exam Date: 06/30/18 Exam Time: 1011 REPORT STATUS: Signed [place]: Single AP view of the chest. COMPARISON: 12/03/2017 INDICATION: Shortness of breath DISCUSSION: Lungs are well-inflated. Persist ent linear opacities in the left mid and bilateral lower lung zones likely fib rotic change or atelectasis. No new consolidation, pleural effusion, or pneumo thorax. Stable cardiomediastinal contour with large hiatal hernia. No overt pu lmonary edema. No acute osseous abnormality. IMPRESSION: Scatter ed foci of linear scar or subsegmental atelectasis in the mid and lower lung z ones, unchanged relative to 12/03/2017. No new consolidations. Large hiatal hernia. Signed by: Dr. Narayan Barragan M.D. on 06/30/2018 10:28 AM Dic tated By: NARAYAN BARRAGAN MD 1028 COPY TO: LUDY PERRY MD SCR MAMM BILATERAL NANCY CAD [id number] 16:02:59 - SCR MAMM BILATERAL NANCY CAD DIGITALBILATERAL DIGITAL SCREENING MAMMOGRAM 3D/2D WITH CAD: 05/09/2018CLINICAL: Asymptomatic. Digital breast tomosynthesis was p erformed in addition to routine CC and MLO views. Current mammographic images w ere evaluated by either a [employer] M-Vu or a [employer] CAD (computer ai ded detection system). Comparison is made to exams dated 05/05/2017 mammogram, 01/06/2016 mammogram, and 12/25/2014 mammogram - [facility]. Ther e are scattered fibroglandular tissues in both breasts. There are benign calcif ications in both breasts. No suspicious mass, architectural distortion, maligna nt type calcification, or lymph node abnormality detected. Breast architecture is stable compared to prior exams.IMPRESSION: BENIGNThere is no mammographic betzy dence of malignancy. Resume annual screening mammography in one year. Arin topete/penrad:05/09/2018 16:02:59 Crane Chaser: Adriana THOMAS, [facility]-letter sent: BIRADS 1-2 Normal Mammogram BI-RADS: 2 BenignCT ABDOMEN/PELVIS [id number] 09:39:00 [place] [address] Patient Name: AMNA GALICIA MR #: [id number] : 1940 Age/Sex: 77/F Req #: [id number] Adm Physician: Ordered by: TRACY GOODMAN MD Report #: [id number] Location: ER Room/Bed: Procedure: [id number] CT/CT ABDOMEN/PELVIS WO Exam Date: 04/13/18 Exam Time: 08 45 REPORT STATUS: Signed ADDENDUM #1 ADDENDUM: Dose modulation, iterative reconstruc tion, and/or weight based adjustment of the mA/kV was utilized to reduce the r adiation dose to as low as reasonably achievable. Signed by: Dr. Gary Escoto MD on 04/13/2018 5:24 PM ORIGINAL REPORT EXAM: CT Ab domen and Pelvis WITHOUT contrast INDICATION: Renal stone. COMPARISO N: KUB 03/18/2017, CT chest 10/11/2016, and CT abdomen/pelvis 03/08/2014. TECH NIQUE: Abdomen and pelvis were scanned utilizing a multidetector helical scann er from the lung base to the pubic symphysis without administration of IV cont rast. Absence of intravenous contrast decreases sensitivity for detection of f ocal lesions and vascular pathology. Coronal and sagittal reformations were ob tained. Routine protocol was performed. RADIATION DOSE: Total DLP : 755.7 mGy*cm COMPLICATIONS: None FINDINGS: LINES and TUBE S: None. LOWER THORAX: Large hiatal hernia. Coronary atherosclerosis. HEPATOBILIARY: No focal hepatic lesions. No biliary ductal dilation. St atus post cholecystectomy. Unchanged appearance of hepatic dome hypodense lesi ons with peripheral calcification. SPLEEN: No splenomegaly. PANCREAS : No focal masses or ductal dilatation. ADRENALS: No adrenal nodules KIDNEYS/URETERS: No hydronephrosis. No cystic or solid mass lesions. There is a 2 mm nonobstructing right lower pole renal stone on series 3, image 90. Right mid pole simple appearing renal cyst. GI TRACT: No abnormal disten tion, wall thickening, or evidence of bowel obstruction. Appendix is nor mal. There is scattered colonic diverticulosis without CT evidence of divertic ulitis. PELVIC ORGANS/BLADDER: Unremarkable. LYMPH NODES: No lymphade nopathy. VESSELS: Moderate atherosclerotic calcifications of the abdominal aorta and branch vessels. PERITONEUM / RETROPERITONEUM: No free air or fl uid. BONES/SOFT TISSUES: No acute bony abnormality. Generative changes of t he visualized spine. IMPRESSION: A 2 mm nonobstructing right lower pole renal stone. Large hiatal hernia. Unchanged appearance of hepatic do me hypodense lesions with peripheral calcification, which are likely benign. Signed by: Dr. Gary Escoto MD on 04/13/2018 9:58 AM Dictated By: GARY ESCOTO MD 3483 Transcribed By: SIRI on 04/13/18 3906 COPY TO: TRACY GOODMAN MD Urine WBC 2018-04-13 08:40:00* Test Item Value Reference Range Interpretation Comments Urine WBC (test code = 5821-4) NONE 0-5 [facility] [id number] 08:40:00* Test Item Value Reference Range Interpretation Comments Urine RBC (test code = 53359-1) NONE 0-5 [facility] Jhcakyjb5800-65-46 08:40:00* Test Item Value Reference Range Interpretation Comments Urine Bacteria (test code = 56367-3) NONE NONE [facility] Epithelial Esjar6118-61-20 08:40:00 * Test Item Value Reference Range Interpretation Comments Urine Epithelial Cells (test code = 92961-4) FEW NONE [facility] [id number] 08:40:00* Test Item Value Reference Range Interpretation Comments Urine WBC (test code = 5821-4) NONE 0-5 [facility] WJP1190-91-35 08:40:00* Test Item Value Reference Range Interpretation Comments Urine RBC (test code = 96132-7) NONE 0-5 [facility] Hhywyrcs2882-26-04 08:40:00* Test Item Value Reference Range Interpretation Comments Urine Bacteria (test code = 05979-6) NONE NONE [facility] Epithelial Walry0417-87-28 08:40:00 * Test Item Value Reference Range Interpretation Comments Urine Epithelial Cells (test code = 60555-7) FEW NONE [facility] Mcjgb2115-81-52 08:33:00* Test Item Value Reference Range Interpretation Comments Urine Color (test code = 5778-6) YELLOW YELLOW [facility] Aealmix3184-47-77 08:33:00* Test Item Value Reference Range Interpretation Comments Urine Clarity (test code = 68838-0) CLEAR CLEAR [facility] Specific Sbmjjbq4199-26-58 08:33:00 * Test Item Value Reference Range Interpretation Comments Urine Specific Weinert (test code = 5811-5) 1.020 1.010-1.02 5 [facility] hF5375-58-09 08:33:00* Test Item Value Reference Range Interpretation Comments Urine pH (test code = 30760-1) 7 5-7 [facility] Leukocyte Hbvbldqs5853-63-80 08:33:00* Test Item Value Reference Range Interpretation Comments Urine Leukocyte Esterase (test code = 5799-2) NEGATIVE NEGATIVE [facility] Bbeukfi6365-55-08 08:33:00* Test Item Value Reference Range Interpretation Comments Urine Nitrite (test code = 01702-2) NEGATIVE NEGATIVE [facility] Khxllje0413-32-50 08:33:00* Test Item Value Reference Range Interpretation Comments Urine Protein (test code = 5804-0) NEGATIVE NEGATIVE [facility] Glucose (UA)2018-04-13 08:33:00* Test Item Value Reference Range Interpretation Comments Urine Glucose (UA) (test code = 2349-9) NEGATIVE NEGATIVE [facility] Aldxfys6944-04-97 08:33:00* Test Item Value Reference Range Interpretation Comments Urine Ketones (test code = 74792-8) NEGATIVE NEGATIVE [facility] Njlxwpjustah1664-65-49 08:33:00* Test Item Value Reference Range Interpretation Comments Urine Urobilinogen (test code = 39154-7) 0.2 0.2-1 [facility] Fbywbzfvh4888-80-12 08:33:00* Test Item Value Reference Range Interpretation Comments Urine Bilirubin (test code = 1978-6) NEGATIVE NEGATIVE [facility] Ijwgu2625-92-61 08:33:00* Test Item Value Reference Range Interpretation Comments Urine Blood (test code = 87313-4) NEGATIVE NEGATIVE [facility] Mhqrw0520-50-62 08:33:00* Test Item Value Reference Range Interpretation Comments Urine Color (test code = 5778-6) YELLOW YELLOW [facility] Gwxgmmd6278-70-62 08:33:00* Test Item Value Reference Range Interpretation Comments Urine Clarity (test code = 65451-4) CLEAR CLEAR [facility] Specific Oglkbtg7433-42-85 08:33:00 * Test Item Value Reference Range Interpretation Comments Urine Specific Weinert (test code = 5811-5) 1.020 1.010-1.02 5 [facility] nY4942-31-68 08:33:00* Test Item Value Reference Range Interpretation Comments Urine pH (test code = 00169-4) 7 5-7 [facility] Leukocyte Puaiiybz6422-38-59 08:33:00* Test Item Value Reference Range Interpretation Comments Urine Leukocyte Esterase (test code = 5799-2) NEGATIVE NEGATIVE [facility] Njxixqo2967-93-02 08:33:00* Test Item Value Reference Range Interpretation Comments Urine Nitrite (test code = 05361-8) NEGATIVE NEGATIVE [facility] Clqsjas0287-01-07 08:33:00* Test Item Value Reference Range Interpretation Comments Urine Protein (test code = 5804-0) NEGATIVE NEGATIVE [facility] Glucose (UA)2018-04-13 08:33:00* Test Item Value Reference Range Interpretation Comments Urine Glucose (UA) (test code = 2349-9) NEGATIVE NEGATIVE [facility] Gectzrz0154-01-68 08:33:00* Test Item Value Reference Range Interpretation Comments Urine Ketones (test code = 40028-5) NEGATIVE NEGATIVE [facility] Afxzqvvqfemf4458-93-95 08:33:00* Test Item Value Reference Range Interpretation Comments Urine Urobilinogen (test code = 52113-7) 0.2 0.2-1 [facility] Srnrcavpf2744-21-99 08:33:00* Test Item Value Reference Range Interpretation Comments Urine Bilirubin (test code = 1978-6) NEGATIVE NEGATIVE [facility] Ydxpu7116-86-37 08:33:00* Test Item Value Reference Range Interpretation Comments Urine Blood (test code = 74489-8) NEGATIVE NEGATIVE [facility] TFS4211-67-06 10:25:00* Test Item Value Reference Range Interpretation Comments Urine WBC (test code = 5821-4) 6-10 0-5 H [facility] VAK7745-54-63 10:25:00* Test Item Value Reference Range Interpretation Comments Urine RBC (test code = 90788-5) NONE 0-5 [facility] Bnvtuhxj3374-91-22 10:25:00* Test Item Value Reference Range Interpretation Comments Urine Bacteria (test code = 59711-4) MANY NONE H [facility] Epithelial Kzood2512-77-74 10:25:00 * Test Item Value Reference Range Interpretation Comments Urine Epithelial Cells (test code = 54510-3) FEW NONE [facility] Transitional Epithelial Cells 2017-12-03 10:25:00* Test Item Value Reference Range Interpretation Comments Urine Transitional Epithelial Cells (test code = 8249-5) RARE NONE [facility] Hyaline Xnokt6125-02-53 10:25:00* Test Item Value Reference Range Interpretation Comments Urine Hyaline Casts (test code = 56851-3) 2-5 0-1 H [facility] SCT0531-06-45 10:25:00* Test Item Value Reference Range Interpretation Comments Urine WBC (test code = 5821-4) 6-10 0-5 H [facility] IRU1484-78-57 10:25:00* Test Item Value Reference Range Interpretation Comments Urine RBC (test code = 30611-2) NONE 0-5 [facility] Tjhcczte3718-30-74 10:25:00* Test Item Value Reference Range Interpretation Comments Urine Bacteria (test code = 98976-6) MANY NONE H [facility] Epithelial Gaowm4862-22-09 10:25:00 * Test Item Value Reference Range Interpretation Comments Urine Epithelial Cells (test code = 04110-1) FEW NONE [facility] Transitional Epithelial Cells 2017-12-03 10:25:00* Test Item Value Reference Range Interpretation Comments Urine Transitional Epithelial Cells (test code = 8249-5) RARE NONE H [facility] Hyaline Glzod2102-28-48 10:25:00* Test Item Value Reference Range Interpretation Comments Urine Hyaline Casts (test code = 37626-8) 2-5 0-1 H [facility] Transitional Epithelial Cells 2017-12-03 10:25:00* Test Item Value Reference Range Interpretation Comments Urine Transitional Epithelial Cells (test code = 8249-5) RARE NONE H [facility] Hyaline Ywoki4405-90-70 10:25:00* Test Item Value Reference Range Interpretation Comments Urine Hyaline Casts (test code = 57791-9) 2-5 0-1 H [facility] Transitional Epithelial Cells 2017-12-03 10:25:00* Test Item Value Reference Range Interpretation Comments Urine Transitional Epithelial Cells (test code = 8249-5) RARE NONE H [facility] Hyaline Lyzsm3708-93-53 10:25:00* Test Item Value Reference Range Interpretation Comments Urine Hyaline Casts (test code = 56979-7) 2-5 0-1 H [facility] Hyaline Zuain2294-69-80 10:25:00* Test Item Value Reference Range Interpretation Comments Urine Hyaline Casts (test code = 39813-6) 2-5 0-1 H [facility] HospitalCHEST 2 JDGKZ0033-49-65 10:07:00 [place] [address] Patient Name: AMNA GALICIA MR #: [id number] : Age/Sex: 76/F Req #: [id number] Adm Physician: Ordered by: VIVIANE SMITH MD Report #: [id number] Location: ER Room/B ed: Procedure: [id number] DX/CHEST 2 VIEWS Exam Date: 12/03/17 Exam Time: 919 REPORT STATUS: Signed PROCEDURE: Frontal and lateral views of the chest. COMPARISON: Chest radiograph 11/14/17. INDICATIONS: SHORTNESS OF BREATH FINDINGS: Lines/tubes: None. Lungs: Linear subsegmental atelectasis at the lung bases is again noted. There is no evidence of pneumonia or pulmonary edema. Pleura: There is no pleural effusion or pneumothorax. Heart and med iastinum: The cardiomediastinal silhouette is unchanged. Moderate hiatal her kirill. Bones: No acute bony abnormality. IMPRESSION: No evide nce of pneumonia or pulmonary edema. Dictated by: GARY ESCOTO M.D. on 11/11 at 10:07 Electronically approved by: GARY ESCOTO M.D. on 8 at 10:07 Dictated By: GARY ESCOTO MD 1007 Transcribed By: FAUSTINA on 12/03/17 1007 QUARTER LINING SMOOTHER Y TO: VIVIANE SMITH MD Troponin [id number] 10:02:00* Test Item Value Reference Range Interpretation Comments Troponin I (test code = ANX9246) 0.002 0-0.300 [place] [id number] 10:02:00* Test Item Value Reference Range Interpretation Comments Troponin I (test code = QWL1938) 0.002 0-0.300 [place] [id number] 10:02:00* Test Item Value Reference Range Interpretation Comments Troponin I (test code = ZQW8518) 0.002 0-0.300 [place] [address]323018-08-24 10:02:00* Test Item Value Reference Range Interpretation Comments Troponin I (test code = LUX2333) 0.002 0-0.300 [place] [address]323018-08-24 10:02:00* Test Item Value Reference Range Interpretation Comments Troponin I (test code = LYN2836) 0.002 0-0.300 [facility] Acmyf0291-64-76 09:58:00* Test Item Value Reference Range Interpretation Comments Sodium Level (test code = 2951-2) 138 136-145 [facility]Potassium Cgcyb6282-71-77 09:58:00* Test Item Value Reference Range Interpretation Comments Potassium Level (test code = 2823-3) 4.6 3.5-5.1 [facility] HospitalChloride Asvul9197-25-60 09:58:00* Test Item Value Reference Range Interpretation Comments Chloride Level (test code = 2075-0) 102 98-107 [facility] HospitalCarbon Dioxide Qzpzw6312-78-53 09:58:00* Test Item Value Reference Range Interpretation Comments Carbon Dioxide Level (test code = 2028-9) 24 - [facility] HospitalAnion Shs4709-05-83 09:58:00* Test Item Value Reference Range Interpretation Comments Anion Gap (test code = 59704-5) 16.6 8-16 H [facility] HospitalBlood Urea Vgveqkjd3439-29-33 09:58:00* Test Item Value Reference Range Interpretation Comments Blood Urea Nitrogen (test code = 3094-0) 11 7-26 [facility] HospitalCreatinine2018-08-24 09:58:00* Test Item Value Reference Range Interpretation Comments Creatinine (test code = 2160-0) 0.80 0.57-1.11 [facility] HospitalBUN/Creatinine Rpotz5068-96-05 09:58:00* Test Item Value Reference Range Interpretation Comments BUN/Creatinine Ratio (test code = 3097-3) 14 6- [facility] HospitalEstimat Glomerular Filtration Rate 2017-12-03 09:58:00* Test Item Value Reference Range Interpretation Comments Estimat Glomerular Filtration Rate (test code = 01995-9) 60- >60 Ranges were taken from the National Kidney Disease Education Program and the [facility] Kid[facility] Foundation literature.Reference ranges:60 or greater: Gxhqcf17-47 ( for 3 consecutive months): Chronic kidney disease 15 or less: Kidney failureRolling Plains Memorial HospitalGlucose Mnkbk2220-79-82 09:58:00* Test Item Value Reference Range Interpretation Comments Glucose Level (test code = KSQ9427) 122 74-118 H [facility] HospitalCalcium Vvwpc7502-12-59 09:58:00* Test Item Value Reference Range Interpretation Comments Calcium Level (test code = 51129-0) 9.5 8.4-10.2 [facility] HospitalTotal Kuoqfbkyj3710-87-79 09:58:00* Test Item Value Reference Range Interpretation Comments Total Bilirubin (test code = 1975-2) 1.1 0.2-1.2 [facility] HospitalAspartate Amino Transf (AST/SGOT) 2017-12-03 09:58:00* Test Item Value Reference Range Interpretation Comments Aspartate Amino Transf (AST/SGOT) (test code = Aspartate Amino Transf (AST/SGOT)) 28 5-34 [facility] HospitalAlanine Aminotransferase (ALT/SGPT) 2017-12-03 09:58:00* Test Item Value Reference Range Interpretation Comments Alanine Aminotransferase (ALT/SGPT) (test code = 1742-6) 24 0-55 [facility] HospitalTotal Wobhzzh3157-52-80 09:58:00* Test Item Value Reference Range Interpretation Comments Total Protein (test code = 2885-2) 7.6 6.5-8.1 [facility] HospitalAlbumin2018-08-24 09:58:00* Test Item Value Reference Range Interpretation Comments Albumin (test code = 1751-7) 4.2 3.5-5.0 [facility] HospitalGlobulin2018-08-24 09:58:00* Test Item Value Reference Range Interpretation Comments Globulin (test code = 36277-6) 3.4 2.3-3.5 [facility] HospitalAlbumin/Globulin Evbdn8289-64-71 09:58:00 * Test Item Value Reference Range Interpretation Comments Albumin/Globulin Ratio (test code = 1759-0) 1.2 0.8-2.0 [facility] HospitalAlkaline Ltzfsgtxvgk7381-16-86 09:58:00* Test Item Value Reference Range Interpretation Comments Alkaline Phosphatase (test code = 6768-6) 84 40-150 [facility] Vqeuk1966-97-51 09:58:00* Test Item Value Reference Range Interpretation Comments Sodium Level (test code = 2951-2) 138 136-145 [facility] HospitalPotassium Pdyxw1392-59-51 09:58:00* Test Item Value Reference Range Interpretation Comments Potassium Level (test code = 2823-3) 4.6 3.5-5.1 [facility] HospitalChloride Bgvem4254-39-15 09:58:00* Test Item Value Reference Range Interpretation Comments Chloride Level (test code = 2075-0) 102 98-107 [facility] HospitalCarbon Dioxide Aubeh2961-71-18 09:58:00* Test Item Value Reference Range Interpretation Comments Carbon Dioxide Level (test code = 2028-9) 24 - [facility] HospitalAnion Cwd5646-00-75 09:58:00* Test Item Value Reference Range Interpretation Comments Anion Gap (test code = 59990-4) 16.6 8-16 H [facility] HospitalBlood Urea Rxpbfizz7387-99-35 09:58:00* Test Item Value Reference Range Interpretation Comments Blood Urea Nitrogen (test code = 3094-0) 11 7-26 [facility] HospitalCreatinine2018-08-24 09:58:00* Test Item Value Reference Range Interpretation Comments Creatinine (test code = 2160-0) 0.80 0.57-1.11 [facility] HospitalBUN/Creatinine Balpx7254-22-30 09:58:00* Test Item Value Reference Range Interpretation Comments BUN/Creatinine Ratio (test code = 3097-3) 14 6-25 [facility] HospitalEstimat Glomerular Filtration Rate 2017-12-03 09:58:00* Test Item Value Reference Range Interpretation Comments Estimat Glomerular Filtration Rate (test code = 977002064) 60- >60 Ranges were taken from the National Kidney Disease Education Program and the [facility] Kid[facility] Foundation literature.Reference ranges:60 or greater: Ptfsqw02-09 ( for 3 consecutive months): Chronic kidney disease 15 or less: Kidney failureRolling Plains Memorial HospitalGlucose Uvook1366-28-26 09:58:00* Test Item Value Reference Range Interpretation Comments Glucose Level (test code = FHD2940) 122 74-118 H [facility] HospitalCalcium Ogkxg8896-87-83 09:58:00* Test Item Value Reference Range Interpretation Comments Calcium Level (test code = 96912-5) 9.5 8.4-10.2 [facility] HospitalTotal Nqrvlxtuy7304-42-25 09:58:00* Test Item Value Reference Range Interpretation Comments Total Bilirubin (test code = 1975-2) 1.1 0.2-1.2 [facility] HospitalAspartate Amino Transf (AST/SGOT) 2017-12-03 09:58:00* Test Item Value Reference Range Interpretation Comments Aspartate Amino Transf (AST/SGOT) (test code = Aspartate Amino Transf (AST/SGOT)) 28 5-34 [facility] HospitalAlanine Aminotransferase (ALT/SGPT) 2017-12-03 09:58:00* Test Item Value Reference Range Interpretation Comments Alanine Aminotransferase (ALT/SGPT) (test code = 1742-6) 24 0-55 [facility] HospitalTotal Ypihhgf0380-51-83 09:58:00* Test Item Value Reference Range Interpretation Comments Total Protein (test code = 2885-2) 7.6 6.5-8.1 [facility] HospitalAlbumin2018-08-24 09:58:00* Test Item Value Reference Range Interpretation Comments Albumin (test code = 1751-7) 4.2 3.5-5.0 [facility] HospitalGlobulin2018-08-24 09:58:00* Test Item Value Reference Range Interpretation Comments Globulin (test code = 66940-2) 3.4 2.3-3.5 [facility] HospitalAlbumin/Globulin Ooyvf0615-78-31 09:58:00 * Test Item Value Reference Range Interpretation Comments Albumin/Globulin Ratio (test code = 1759-0) 1.2 0.8-2.0 [facility] HospitalAlkaline Zxolxksllgh6706-98-53 09:58:00* Test Item Value Reference Range Interpretation Comments Alkaline Phosphatase (test code = 6768-6) 84 40-150 [facility] Zzexk5089-68-78 09:58:00* Test Item Value Reference Range Interpretation Comments Sodium Level (test code = 2951-2) 138 136-145 [facility] HospitalPotassium Vgrcf3023-26-83 09:58:00* Test Item Value Reference Range Interpretation Comments Potassium Level (test code = 2823-3) 4.6 3.5-5.1 [facility] HospitalChloride Kmsvk1512-71-80 09:58:00* Test Item Value Reference Range Interpretation Comments Chloride Level (test code = 2075-0) 102 98-107 [facility] HospitalCarbon Dioxide Lpdfk0329-99-97 09:58:00* Test Item Value Reference Range Interpretation Comments Carbon Dioxide Level (test code = 2028-9) 24 - [facility] HospitalAnion Puk4351-20-98 09:58:00* Test Item Value Reference Range Interpretation Comments Anion Gap (test code = 71822-5) 16.6 8-16 H [facility] HospitalBlood Urea Lsdpgbzb8998-32-21 09:58:00* Test Item Value Reference Range Interpretation Comments Blood Urea Nitrogen (test code = 3094-0) 11 7-26 [facility] HospitalCreatinine2018-08-24 09:58:00* Test Item Value Reference Range Interpretation Comments Creatinine (test code = 2160-0) 0.80 0.57-1.11 [facility] HospitalBUN/Creatinine Qrvkn3891-75-61 09:58:00* Test Item Value Reference Range Interpretation Comments BUN/Creatinine Ratio (test code = 3097-3) 14 6-25 [facility] HospitalEstimat Glomerular Filtration Rate 2017-12-03 09:58:00* Test Item Value Reference Range Interpretation Comments Estimat Glomerular Filtration Rate (test code = 554866426) > 60 >60 Ranges were taken from the National Kidney Disease Education Program and the [facility] literature.Reference ranges:60 or greater: [id number] ( for 3 consecutive months): Chronic kidney disease 15 or less: Kidney failureRolling Plains [facility] HospitalGlucose Dcmtz5410-96-40 09:58:00* Test Item Value Reference Range Interpretation Comments Glucose Level (test code = FQL1266) 122 74-118 H [facility] HospitalCalcium Khpwf1345-75-53 09:58:00* Test Item Value Reference Range Interpretation Comments Calcium Level (test code = 92989-6) 9.5 8.4-10.2 [facility] HospitalTotal Tdhwkugvf3063-31-83 09:58:00* Test Item Value Reference Range Interpretation Comments Total Bilirubin (test code = 1975-2) 1.1 0.2-1.2 [facility] HospitalAspartate Amino Transf (AST/SGOT) 2017-12-03 09:58:00* Test Item Value Reference Range Interpretation Comments Aspartate Amino Transf (AST/SGOT) (test code = Aspartate Amino Transf (AST/SGOT)) 28 5-34 [facility] HospitalAlanine Aminotransferase (ALT/SGPT) 2017-12-03 09:58:00* Test Item Value Reference Range Interpretation Comments Alanine Aminotransferase (ALT/SGPT) (test code = 1742-6) 24 0-55 [facility] HospitalTotal Zghbdog7544-65-10 09:58:00* Test Item Value Reference Range Interpretation Comments Total Protein (test code = 2885-2) 7.6 6.5-8.1 [facility] HospitalAlbumin2018-08-24 09:58:00* Test Item Value Reference Range Interpretation Comments Albumin (test code = 1751-7) 4.2 3.5-5.0 [facility] HospitalGlobulin2018-08-24 09:58:00* Test Item Value Reference Range Interpretation Comments Globulin (test code = 54502-5) 3.4 2.3-3.5 [facility] HospitalAlbumin/Globulin Wnbss3161-57-45 09:58:00 * Test Item Value Reference Range Interpretation Comments Albumin/Globulin Ratio (test code = 1759-0) 1.2 0.8-2.0 [facility] HospitalAlkaline Znegliowtsx7461-00-18 09:58:00* Test Item Value Reference Range Interpretation Comments Alkaline Phosphatase (test code = 6768-6) 84 40-150 [facility] Uvfaf9604-27-49 09:58:00* Test Item Value Reference Range Interpretation Comments Sodium Level (test code = 2951-2) 138 136-145 [facility] HospitalPotassium Dqoaz8754-41-85 09:58:00* Test Item Value Reference Range Interpretation Comments Potassium Level (test code = 2823-3) 4.6 3.5-5.1 [facility] HospitalChloride Iqedm8459-71-75 09:58:00* Test Item Value Reference Range Interpretation Comments Chloride Level (test code = 2075-0) 102 98-107 [facility] HospitalCarbon Dioxide Ekktf6209-31-58 09:58:00* Test Item Value Reference Range Interpretation Comments Carbon Dioxide Level (test code = 2028-9) 24 - [facility] HospitalAnion Tqb7253-93-50 09:58:00* Test Item Value Reference Range Interpretation Comments Anion Gap (test code = 13641-1) 16.6 8-16 H [facility] HospitalBlood Urea Zwyvdzyi0161-24-10 09:58:00* Test Item Value Reference Range Interpretation Comments Blood Urea Nitrogen (test code = 3094-0) 11 7-26 [facility] HospitalCreatinine2018-08-24 09:58:00* Test Item Value Reference Range Interpretation Comments Creatinine (test code = 2160-0) 0.80 0.57-1.11 [facility] HospitalBUN/Creatinine Zuypb8694-88-43 09:58:00* Test Item Value Reference Range Interpretation Comments BUN/Creatinine Ratio (test code = 3097-3) 14 6- [facility] HospitalEstimat Glomerular Filtration Rate 2017-12-03 09:58:00* Test Item Value Reference Range Interpretation Comments Estimat Glomerular Filtration Rate (test code = 600887817) > 60 >60 Ranges were taken from the National Kidney Disease Education Program and the [facility] literature.Reference ranges:60 or greater: Cswtig57-88 ( for 3 consecutive months): Chronic kidney disease 15 or less: Kidney failureRolling Plains Memorial HospitalGlucose Evbqw4261-28-60 09:58:00* Test Item Value Reference Range Interpretation Comments Glucose Level (test code = HGF9200) 122 74-118 H [facility] HospitalCalcium Ehjfn0103-07-82 09:58:00* Test Item Value Reference Range Interpretation Comments Calcium Level (test code = 84017-2) 9.5 8.4-10.2 [facility] HospitalTotal Jqoaigmct6534-36-41 09:58:00* Test Item Value Reference Range Interpretation Comments Total Bilirubin (test code = 1975-2) 1.1 0.2-1.2 [facility] HospitalAspartate Amino Transf (AST/SGOT) 2017-12-03 09:58:00* Test Item Value Reference Range Interpretation Comments Aspartate Amino Transf (AST/SGOT) (test code = Aspartate Amino Transf (AST/SGOT)) 28 5-34 [facility] HospitalAlanine Aminotransferase (ALT/SGPT) 2017-12-03 09:58:00* Test Item Value Reference Range Interpretation Comments Alanine Aminotransferase (ALT/SGPT) (test code = 1742-6) 24 0-55 [facility] HospitalTotal Xkvtntt7616-35-16 09:58:00* Test Item Value Reference Range Interpretation Comments Total Protein (test code = 2885-2) 7.6 6.5-8.1 [facility] HospitalAlbumin2018-08-24 09:58:00* Test Item Value Reference Range Interpretation Comments Albumin (test code = 1751-7) 4.2 3.5-5.0 [facility] HospitalGlobulin2018-08-24 09:58:00* Test Item Value Reference Range Interpretation Comments Globulin (test code = 06687-6) 3.4 2.3-3.5 [facility] HospitalAlbumin/Globulin Cyhos4984-10-20 09:58:00 * Test Item Value Reference Range Interpretation Comments Albumin/Globulin Ratio (test code = 1759-0) 1.2 0.8-2.0 [facility] HospitalAlkaline Jlwfxenfduj9763-40-01 09:58:00* Test Item Value Reference Range Interpretation Comments Alkaline Phosphatase (test code = 6768-6) 84 40-150 [facility] HospitalB-Type Natriuretic Hvkaoco6175-15-49 09:50:00* Test Item Value Reference Range Interpretation Comments B-Type Natriuretic Peptide (test code = 50567-3) 35.2 0-100 [facility] HospitalB-Type Natriuretic Zhajhqe0190-04-09 09:50:00* Test Item Value Reference Range Interpretation Comments B-Type Natriuretic Peptide (test code = 72417-2) 35.2 0-100 [facility] HospitalB-Type Natriuretic Iqaikud1555-57-61 09:50:00* Test Item Value Reference Range Interpretation Comments B-Type Natriuretic Peptide (test code = 05874-2) 35.2 0-100 [facility] HospitalB-Type Natriuretic Qbxirzs1385-96-02 09:50:00* Test Item Value Reference Range Interpretation Comments B-Type Natriuretic Peptide (test code = 19471-5) 35.2 0-100 [facility] HospitalB-Type Natriuretic Zcesqrj2107-62-43 09:50:00* Test Item Value Reference Range Interpretation Comments B-Type Natriuretic Peptide (test code = 08087-5) 35.2 0-100 [facility] HospitalUrine Wmzef5262-53-18 09:30:00* Test Item Value Reference Range Interpretation Comments Urine Color (test code = 5778-6) YELLOW YELLOW [facility] HospitalUrine Ierkfbl5004-39-38 09:30:00* Test Item Value Reference Range Interpretation Comments Urine Clarity (test code = 70581-1) SL CLOUDY CLEAR [facility] HospitalUrine Specific Yfblavj8157-42-22 09:30:00 * Test Item Value Reference Range Interpretation Comments Urine Specific Weinert (test code = 5811-5) 1.030 1.010-1.02 5 H [facility] HospitalUrine kC6639-50-49 09:30:00* Test Item Value Reference Range Interpretation Comments Urine pH (test code = 95675-9) 5 5-7 [facility] HospitalUrine Leukocyte Fuxkjbmh9508-58-84 09:30:00* Test Item Value Reference Range Interpretation Comments Urine Leukocyte Esterase (test code = 5799-2) [facility] NEGATIVE [facility] Vmkompe2561-10-25 09:30:00* Test Item Value Reference Range Interpretation Comments Urine Nitrite (test code = 91331-0) POSITIVE NEGATIVE [facility] CenterU[facility] Wcjhmdz4725-01-12 09:30:00* Test Item Value Reference Range Interpretation Comments Urine Protein (test code = 5804-0) TRACE NEGATIVE [facility] CenterU[facility] Glucose (UA)2017-12-03 09:30:00* Test Item Value Reference Range Interpretation Comments Urine Glucose (UA) (test code = 2349-9) NEGATIVE NEGATIVE [facility] HospitalUrine Bfpnxbt0750-01-69 09:30:00* Test Item Value Reference Range Interpretation Comments Urine Ketones (test code = 53312-5) TRACE NEGATIVE [facility] Xuiwpoggqgjl6322-94-53 09:30:00* Test Item Value Reference Range Interpretation Comments Urine Urobilinogen (test code = 29860-0) 0.2 0.2-1 [facility] HospitalUrine Shokogksn4141-86-01 09:30:00* Test Item Value Reference Range Interpretation Comments Urine Bilirubin (test code = 1978-6) NEGATIVE NEGATIVE [facility] HospitalUrine Asmwk1893-11-81 09:30:00* Test Item Value Reference Range Interpretation Comments Urine Blood (test code = 49956-0) NEGATIVE NEGATIVE [facility] HospitalUrine Evxwo3024-80-47 09:30:00* Test Item Value Reference Range Interpretation Comments Urine Color (test code = 5778-6) YELLOW YELLOW [facility] HospitalUrine Mnagzjt8665-17-72 09:30:00* Test Item Value Reference Range Interpretation Comments Urine Clarity (test code = 15815-1) SL CLOUDY CLEAR [facility] HospitalUrine Specific Ekpkxqg5480-21-03 09:30:00 * Test Item Value Reference Range Interpretation Comments Urine Specific Weinert (test code = 5811-5) 1.030 1.010-1.02 5 H [facility] HospitalUrine rR1582-01-80 09:30:00* Test Item Value Reference Range Interpretation Comments Urine pH (test code = 92104-2) 5 5-7 [facility] HospitalUrine Leukocyte Dgtrhwpg5880-01-68 09:30:00* Test Item Value Reference Range Interpretation Comments Urine Leukocyte Esterase (test code = 5799-2) TRACE NEGATIVE [facility] CenterU[facility] Mctxmyx9725-10-25 09:30:00* Test Item Value Reference Range Interpretation Comments Urine Nitrite (test code = 39075-2) POSITIVE NEGATIVE [facility] CenterU[facility] Dcvwnyo9935-01-60 09:30:00* Test Item Value Reference Range Interpretation Comments Urine Protein (test code = 5804-0) TRACE NEGATIVE [facility] Glucose (UA)2017-12-03 09:30:00* Test Item Value Reference Range Interpretation Comments Urine Glucose (UA) (test code = 2349-9) NEGATIVE NEGATIVE [facility] HospitalUrine Ssjzwyi0083-88-21 09:30:00* Test Item Value Reference Range Interpretation Comments Urine Ketones (test code = 20145-4) TRACE NEGATIVE H [facility] HospitalUrine Tfgdcfmesqvd0345-10-21 09:30:00* Test Item Value Reference Range Interpretation Comments Urine Urobilinogen (test code = 02995-0) 0.2 0.2-1 [facility] HospitalUrine Sjdzwasaq1704-43-04 09:30:00* Test Item Value Reference Range Interpretation Comments Urine Bilirubin (test code = 1978-6) NEGATIVE NEGATIVE [facility] HospitalUrine Vzihg9688-03-21 09:30:00* Test Item Value Reference Range Interpretation Comments Urine Blood (test code = 34703-1) NEGATIVE NEGATIVE [facility] HospitalWhite Blood Deban9799-33-41 09:28:00* Test Item Value Reference Range Interpretation Comments White Blood Count (test code = 6690-2) 6.75 4.8-10.8 [facility] HospitalRed Blood Dlzyi2436-96-06 09:28:00* Test Item Value Reference Range Interpretation Comments Red Blood Count (test code = 789-8) 4.83 3.6-5.1 [facility] HospitalHemoglobin2018-08-24 09:28:00* Test Item Value Reference Range Interpretation Comments Hemoglobin (test code = 49166-6) 12.4 12.0-16.0 [facility] HospitalHematocrit2018-08-24 09:28:00* Test Item Value Reference Range Interpretation Comments Hematocrit (test code = 4544-3) 40.3 34.2-44.1 [facility] HospitalMean Corpuscular Ahimix4733-31-95 09:28:00* Test Item Value Reference Range Interpretation Comments Mean Corpuscular Volume (test code = 787-2) 83.4 81-99 [facility] HospitalMean Corpuscular Mqoxfrqcih8422-13-13 09:28:00* Test Item Value Reference Range Interpretation Comments Mean Corpuscular Hemoglobin (test code = 785-6) 25.7 28-32 L [facility] HospitalMe Corpuscular Hemoglobin Concent 2017-12-03 09:28:00* Test Item Value Reference Range Interpretation Comments Mean Corpuscular Hemoglobin Concent (test code = 786-4) 30.8 31-35 L [facility] HospitalRed Cell Distribution Psshe7324-18-47 09:28:00* Test Item Value Reference Range Interpretation Comments Red Cell Distribution Width (test code = 50621-5) 13.7 11.7 -14.4 [facility] HospitalPlatelet Daadi8426-63-29 09:28:00* Test Item Value Reference Range Interpretation Comments Platelet Count (test code = 777-3) 274 140-360 [facility] HospitalNeutrophils (%) (Auto)2017-12-03 09:28:00 * Test Item Value Reference Range Interpretation Comments Neutrophils (%) (Auto) (test code = 20355-7) 67.5 38.7-80.0 [facility] HospitalLymphocytes (%) (Auto)2017-12-03 09:28:00 * Test Item Value Reference Range Interpretation Comments Lymphocytes (%) (Auto) (test code = 736-9) 20.9 18.0-39.1 [facility] HospitalMonocytes (%) (Auto)2017-12-03 09:28:00* Test Item Value Reference Range Interpretation Comments Monocytes (%) (Auto) (test code = 5905-5) 9.8 4.4-11.3 [facility] HospitalEosinophils (%) (Auto)2017-12-03 09:28:00 * Test Item Value Reference Range Interpretation Comments Eosinophils (%) (Auto) (test code = 713-8) 1.2 0.0-6.0 [facility] HospitalBasophils (%) (Auto)2017-12-03 09:28:00* Test Item Value Reference Range Interpretation Comments Basophils (%) (Auto) (test code = 706-2) 0.3 0.0-1.0 [facility] HospitalIM GRANULOCYTES %2017-12-03 09:28:00* Test Item Value Reference Range Interpretation Comments IM GRANULOCYTES % (test code = IM GRANULOCYTES %) 0.3 0.0- 1.0 [facility] HospitalNeutrophils # (Auto)2017-12-03 09:28:00* Test Item Value Reference Range Interpretation Comments Neutrophils # (Auto) (test code = 751-8) 4.6 2.1-6.9 [facility] HospitalLymphocytes # (Auto)2017-12-03 09:28:00* Test Item Value Reference Range Interpretation Comments Lymphocytes # (Auto) (test code = 86526-0) 1.4 1.0-3.2 [facility] HospitalMonocytes # (Auto)2017-12-03 09:28:00* Test Item Value Reference Range Interpretation Comments Monocytes # (Auto) (test code = 742-7) 0.7 0.2-0.8 [facility] HospitalEosinophils # (Auto)2017-12-03 09:28:00* Test Item Value Reference Range Interpretation Comments Eosinophils # (Auto) (test code = 711-2) 0.1 0.0-0.4 [facility] HospitalBasophils # (Auto)2017-12-03 09:28:00* Test Item Value Reference Range Interpretation Comments Basophils # (Auto) (test code = 704-7) 0.0 0.0-0.1 [facility] HospitalAbsolute Immature Granulocyte (auto 2017-12-03 09:28:00* Test Item Value Reference Range Interpretation Comments Absolute Immature Granulocyte (auto (wandy t code = Absolute Immature Granulocyte (auto) 0.02 0-0.1 [facility] HospitalWhite Blood Zzovk5396-94-93 09:28:00* Test Item Value Reference Range Interpretation Comments White Blood Count (test code = 6690-2) 6.75 4.8-10.8 [facility] HospitalRed Blood Darqp0643-39-57 09:28:00* Test Item Value Reference Range Interpretation Comments Red Blood Count (test code = 789-8) 4.83 3.6-5.1 [facility] HospitalHemoglobin2018-08-24 09:28:00* Test Item Value Reference Range Interpretation Comments Hemoglobin (test code = 95595-3) 12.4 12.0-16.0 [facility] HospitalHematocrit2018-08-24 09:28:00* Test Item Value Reference Range Interpretation Comments Hematocrit (test code = 4544-3) 40.3 34.2-44.1 [facility] HospitalMean Corpuscular Tebfwg1396-08-18 09:28:00* Test Item Value Reference Range Interpretation Comments Mean Corpuscular Volume (test code = 787-2) 83.4 81-99 [facility] HospitalMean Corpuscular Xlwlencfkx1510-17-36 09:28:00* Test Item Value Reference Range Interpretation Comments Mean Corpuscular Hemoglobin (test code = 785-6) 25.7 28-32 L [facility] HospitalMean Corpuscular Hemoglobin Concent 2017-12-03 09:28:00* Test Item Value Reference Range Interpretation Comments Mean Corpuscular Hemoglobin Concent (test code = 786-4) 30.8 31-35 L [facility] HospitalRed Cell Distribution Nnzji0341-25-36 09:28:00* Test Item Value Reference Range Interpretation Comments Red Cell Distribution Width (test code = 04504-1) 13.7 11.7 -14.4 [facility] HospitalPlatelet Hkgdb1690-14-59 09:28:00* Test Item Value Reference Range Interpretation Comments Platelet Count (test code = 777-3) 274 140-360 [facility] HospitalNeutrophils (%) (Auto)2017-12-03 09:28:00 * Test Item Value Reference Range Interpretation Comments Neutrophils (%) (Auto) (test code = 07617-3) 67.5 38.7-80.0 [facility] HospitalLymphocytes (%) (Auto)2017-12-03 09:28:00 * Test Item Value Reference Range Interpretation Comments Lymphocytes (%) (Auto) (test code = 736-9) 20.9 18.0-39.1 [facility] HospitalMonocytes (%) (Auto)2017-12-03 09:28:00* Test Item Value Reference Range Interpretation Comments Monocytes (%) (Auto) (test code = 5905-5) 9.8 4.4-11.3 [facility] HospitalEosinophils (%) (Auto)2017-12-03 09:28:00 * Test Item Value Reference Range Interpretation Comments Eosinophils (%) (Auto) (test code = 713-8) 1.2 0.0-6.0 [facility] HospitalBasophils (%) (Auto)2017-12-03 09:28:00* Test Item Value Reference Range Interpretation Comments Basophils (%) (Auto) (test code = 706-2) 0.3 0.0-1.0 [facility] HospitalIM GRANULOCYTES %2017-12-03 09:28:00* Test Item Value Reference Range Interpretation Comments IM GRANULOCYTES % (test code = IM GRANULOCYTES %) 0.3 0.0- 1.0 [facility] HospitalNeutrophils # (Auto)2017-12-03 09:28:00* Test Item Value Reference Range Interpretation Comments Neutrophils # (Auto) (test code = 751-8) 4.6 2.1-6.9 [facility] HospitalLymphocytes # (Auto)2017-12-03 09:28:00* Test Item Value Reference Range Interpretation Comments Lymphocytes # (Auto) (test code = 95300-6) 1.4 1.0-3.2 [facility] HospitalMonocytes # (Auto)2017-12-03 09:28:00* Test Item Value Reference Range Interpretation Comments Monocytes # (Auto) (test code = 742-7) 0.7 0.2-0.8 [facility] HospitalEosinophils # (Auto)2017-12-03 09:28:00* Test Item Value Reference Range Interpretation Comments Eosinophils # (Auto) (test code = 711-2) 0.1 0.0-0.4 [facility] HospitalBasophils # (Auto)2017-12-03 09:28:00* Test Item Value Reference Range Interpretation Comments Basophils # (Auto) (test code = 704-7) 0.0 0.0-0.1 [facility] HospitalAbsolute Immature Granulocyte (auto 2017-12-03 09:28:00* Test Item Value Reference Range Interpretation Comments Absolute Immature Granulocyte (auto (wandy t code = Absolute Immature Granulocyte (auto) 0.02 0-0.1 [facility] HospitalWhite Blood Revqf4220-42-10 09:28:00* Test Item Value Reference Range Interpretation Comments White Blood Count (test code = 6690-2) 6.75 4.8-10.8 [facility] HospitalRed Blood Fbsvh1208-88-17 09:28:00* Test Item Value Reference Range Interpretation Comments Red Blood Count (test code = 789-8) 4.83 3.6-5.1 [facility] HospitalHemoglobin2018-08-24 09:28:00* Test Item Value Reference Range Interpretation Comments Hemoglobin (test code = 46624-4) 12.4 12.0-16.0 [facility] HospitalHematocrit2018-08-24 09:28:00* Test Item Value Reference Range Interpretation Comments Hematocrit (test code = 4544-3) 40.3 34.2-44.1 [facility] HospitalMean Corpuscular Kpzkeu1710-00-44 09:28:00* Test Item Value Reference Range Interpretation Comments Mean Corpuscular Volume (test code = 787-2) 83.4 81-99 [facility] HospitalMean Corpuscular Ksiuywzbww7333-27-11 09:28:00* Test Item Value Reference Range Interpretation Comments Mean Corpuscular Hemoglobin (test code = 785-6) 25.7 28-32 [facility] Hemoglobin Concent 2017-12-03 09:28:00* Test Item Value Reference Range Interpretation Comments Mean Corpuscular Hemoglobin Concent (test code = 786-4) 30.8 31-35 L [facility] HospitalRed Cell Distribution Ctbmu4139-28-44 09:28:00* Test Item Value Reference Range Interpretation Comments Red Cell Distribution Width (test code = 03320-4) 13.7 11.7 -14.4 [facility] HospitalPlatelet Lkhxd5106-39-52 09:28:00* Test Item Value Reference Range Interpretation Comments Platelet Count (test code = 777-3) 274 140-360 [facility] HospitalNeutrophils (%) (Auto)2017-12-03 09:28:00 * Test Item Value Reference Range Interpretation Comments Neutrophils (%) (Auto) (test code = 21165-9) 67.5 38.7-80.0 [facility] HospitalLymphocytes (%) (Auto)2017-12-03 09:28:00 * Test Item Value Reference Range Interpretation Comments Lymphocytes (%) (Auto) (test code = 736-9) 20.9 18.0-39.1 [facility] HospitalMonocytes (%) (Auto)2017-12-03 09:28:00* Test Item Value Reference Range Interpretation Comments Monocytes (%) (Auto) (test code = 5905-5) 9.8 4.4-11.3 [facility] HospitalEosinophils (%) (Auto)2017-12-03 09:28:00 * Test Item Value Reference Range Interpretation Comments Eosinophils (%) (Auto) (test code = 713-8) 1.2 0.0-6.0 [facility] HospitalBasophils (%) (Auto)2017-12-03 09:28:00* Test Item Value Reference Range Interpretation Comments Basophils (%) (Auto) (test code = 706-2) 0.3 0.0-1.0 [facility] HospitalIM GRANULOCYTES %2017-12-03 09:28:00* Test Item Value Reference Range Interpretation Comments IM GRANULOCYTES % (test code = IM GRANULOCYTES %) 0.3 0.0- 1.0 [facility] HospitalNeutrophils # (Auto)2017-12-03 09:28:00* Test Item Value Reference Range Interpretation Comments Neutrophils # (Auto) (test code = 751-8) 4.6 2.1-6.9 [facility] HospitalLymphocytes # (Auto)2017-12-03 09:28:00* Test Item Value Reference Range Interpretation Comments Lymphocytes # (Auto) (test code = 32797-7) 1.4 1.0-3.2 [facility] HospitalMonocytes # (Auto)2017-12-03 09:28:00* Test Item Value Reference Range Interpretation Comments Monocytes # (Auto) (test code = 742-7) 0.7 0.2-0.8 [facility] HospitalEosinophils # (Auto)2017-12-03 09:28:00* Test Item Value Reference Range Interpretation Comments Eosinophils # (Auto) (test code = 711-2) 0.1 0.0-0.4 [facility] HospitalBasophils # (Auto)2017-12-03 09:28:00* Test Item Value Reference Range Interpretation Comments Basophils # (Auto) (test code = 704-7) 0.0 0.0-0.1 [facility] HospitalAbsolute Immature Granulocyte (auto 2017-12-03 09:28:00* Test Item Value Reference Range Interpretation Comments Absolute Immature Granulocyte (auto (wandy t code = Absolute Immature Granulocyte (auto) 0.02 0-0.1 [facility] HospitalWhite Blood Tkgjr4573-69-31 09:28:00* Test Item Value Reference Range Interpretation Comments White Blood Count (test code = 6690-2) 6.75 4.8-10.8 [facility] HospitalRed Blood Qqjvm2586-90-54 09:28:00* Test Item Value Reference Range Interpretation Comments Red Blood Count (test code = 789-8) 4.83 3.6-5.1 [facility] HospitalHemoglobin2018-08-24 09:28:00* Test Item Value Reference Range Interpretation Comments Hemoglobin (test code = 32361-3) 12.4 12.0-16.0 [facility] HospitalHematocrit2018-08-24 09:28:00* Test Item Value Reference Range Interpretation Comments Hematocrit (test code = 4544-3) 40.3 34.2-44.1 [facility] HospitalMean Corpuscular Klzmys6853-20-67 09:28:00* Test Item Value Reference Range Interpretation Comments Mean Corpuscular Volume (test code = 787-2) 83.4 81-99 [facility] HospitalMean Corpuscular Kknwpfzrfc6625-85-84 09:28:00* Test Item Value Reference Range Interpretation Comments Mean Corpuscular Hemoglobin (test code = 785-6) 25.7 28-32 L [facility] HospitalMean Corpuscular Hemoglobin Concent 2017-12-03 09:28:00* Test Item Value Reference Range Interpretation Comments Mean Corpuscular Hemoglobin Concent (test code = 786-4) 30.8 31-35 L [facility] HospitalRed Cell Distribution Eqrvg1993-21-95 09:28:00* Test Item Value Reference Range Interpretation Comments Red Cell Distribution Width (test code = 37573-9) 13.7 11.7 -14.4 [facility] HospitalPlatelet Kzzyx0570-30-10 09:28:00* Test Item Value Reference Range Interpretation Comments Platelet Count (test code = 777-3) 274 140-360 [facility] HospitalNeutrophils (%) (Auto)2017-12-03 09:28:00 * Test Item Value Reference Range Interpretation Comments Neutrophils (%) (Auto) (test code = 49791-5) 67.5 38.7-80.0 [facility] HospitalLymphocytes (%) (Auto)2017-12-03 09:28:00 * Test Item Value Reference Range Interpretation Comments Lymphocytes (%) (Auto) (test code = 736-9) 20.9 18.0-39.1 [facility] HospitalMonocytes (%) (Auto)2017-12-03 09:28:00* Test Item Value Reference Range Interpretation Comments Monocytes (%) (Auto) (test code = 5905-5) 9.8 4.4-11.3 [facility] HospitalEosinophils (%) (Auto)2017-12-03 09:28:00 * Test Item Value Reference Range Interpretation Comments Eosinophils (%) (Auto) (test code = 713-8) 1.2 0.0-6.0 [facility] HospitalBasophils (%) (Auto)2017-12-03 09:28:00* Test Item Value Reference Range Interpretation Comments Basophils (%) (Auto) (test code = 706-2) 0.3 0.0-1.0 [facility] HospitalIM GRANULOCYTES %2017-12-03 09:28:00* Test Item Value Reference Range Interpretation Comments IM GRANULOCYTES % (test code = IM GRANULOCYTES %) 0.3 0.0- 1.0 [facility] HospitalNeutrophils # (Auto)2017-12-03 09:28:00* Test Item Value Reference Range Interpretation Comments Neutrophils # (Auto) (test code = 751-8) 4.6 2.1-6.9 [facility] HospitalLymphocytes # (Auto)2017-12-03 09:28:00* Test Item Value Reference Range Interpretation Comments Lymphocytes # (Auto) (test code = 29669-5) 1.4 1.0-3.2 [facility] HospitalMonocytes # (Auto)2017-12-03 09:28:00* Test Item Value Reference Range Interpretation Comments Monocytes # (Auto) (test code = 742-7) 0.7 0.2-0.8 [facility] HospitalEosinophils # (Auto)2017-12-03 09:28:00* Test Item Value Reference Range Interpretation Comments Eosinophils # (Auto) (test code = 711-2) 0.1 0.0-0.4 [facility] HospitalBasophils # (Auto)2017-12-03 09:28:00* Test Item Value Reference Range Interpretation Comments Basophils # (Auto) (test code = 704-7) 0.0 0.0-0.1 [facility] HospitalAbsolute Immature Granulocyte (auto 2017-12-03 09:28:00* Test Item Value Reference Range Interpretation Comments Absolute Immature Granulocyte (auto (wandy t code = Absolute Immature Granulocyte (auto) 0.02 0-0.1 [facility] HospitalB-Type Natriuretic Auhgmvt2355-24-06 08:28:00* Test Item Value Reference Range Interpretation Comments B-Type Natriuretic Peptide (test code = 54109-2) 63.1 0-100 [facility] HospitalCreatine Kinase RX8684-55-46 08:19:00* Test Item Value Reference Range Interpretation Comments Creatine Kinase MB (test code = 93400-1) 1.80 0-5.0 [facility] HospitalTroponin M0985-06-52 08:19:00* Test Item Value Reference Range Interpretation Comments Troponin I (test code = JMO7314) 0.002 0-0.300 [facility] HospitalCreatine Kinase ML7303-42-21 08:19:00* Test Item Value Reference Range Interpretation Comments Creatine Kinase MB (test code = 18356-1) 1.80 0-5.0 [facility] HospitalCreatine Kinase OR1249-03-43 08:19:00* Test Item Value Reference Range Interpretation Comments Creatine Kinase MB (test code = 44129-5) 1.80 0-5.0 [facility] HospitalCreatine Kinase QE9809-31-34 08:19:00* Test Item Value Reference Range Interpretation Comments Creatine Kinase MB (test code = 70591-2) 1.80 0-5.0 [facility] HospitalCreatine Kinase IW7553-88-10 08:19:00* Test Item Value Reference Range Interpretation Comments Creatine Kinase MB (test code = 95157-6) 1.80 0-5.0 [facility] HospitalCreatine Kinase BO0469-52-75 08:19:00* Test Item Value Reference Range Interpretation Comments Creatine Kinase MB (test code = 63332-6) 1.80 0-5.0 [facility] HospitalCHEST 2 QSPHH8712-22-91 08:17:00 [facility] [address] [address] Patient Name: AMNA GALICIA MR #: [id number] : Age/Sex: 76/F Req #: [id number] Adm Physician: Ordered by: EMETERIO PERRY MD Report #: [id number] Location: ER Room/B ed: Procedure: [id number] DX/CHEST 2 VIEWS Exam Date: 11/14/17 Exam Time: 0750 REPORT STATUS: Signed EXAMINATION: CHEST 2 VIEWS COMPARISON: Chest x-ray 02/17/2017, CT c hest 10/11/2016 INDICATION: Shortness of breath, pneumonia DISCUSSI ON: HEART AND MEDIASTINUM: The heart is mildly enlarged but this may be th e result of prominent pericardial fat pads. Moderate sized hiatal hernia is pr esent and grossly stable. No hilar lymphadenopathy. LINES: None. LUNGS: Subsegmental atelectasis in the right middle lobe and lingula have pro gressed. The diaphragms are flat. No mass. Vascular markings are normal. PL EURA: No pleural effusion or pneumothorax. BONES AND SOFT TISSUES: Diffus acosta demineralized with mild degenerative changes. The soft tissues are normal. IMPRESSION: 1. Moderate sized hiatal hernia. 2. Progression of bib asilar subsegmental atelectasis. Pulmonary hyperinflation suggestive of COPD. 3. Mild cardiomegaly. No vascular congestion. Signed by: Dr. Yohana estrada MD on 11/14/2017 8:20 AM Dictated By: YOHANA DELVALLE MD Electron ically Signed By: YOHANA DELVALLE MD on 11/14/17819 Transcribed By: SIRI on 11/14/17819 COPY TO: EMETERIO PERRY MD Sodium Level 2017-11-14 08:09:00* Test Item Value Reference Range Interpretation Comments Sodium Level (test code = 2951-2) 138 136-145 [facility] HospitalPotassium Nnmer6052-89-19 08:09:00* Test Item Value Reference Range Interpretation Comments Potassium Level (test code = 2823-3) 3.9 3.5-5.1 [facility] HospitalChloride Bdprt9717-49-99 08:09:00* Test Item Value Reference Range Interpretation Comments Chloride Level (test code = 2075-0) 103 98-107 [facility] HospitalCarbon Dioxide Rcoug6575-25-84 08:09:00* Test Item Value Reference Range Interpretation Comments Carbon Dioxide Level (test code = 2028-9) 24 22-29 [facility] HospitalAnion Qtu0744-82-12 08:09:00* Test Item Value Reference Range Interpretation Comments Anion Gap (test code = 29128-5) 14.9 8-16 [facility] HospitalBlood Urea Snjxisbv2658-09-44 08:09:00* Test Item Value Reference Range Interpretation Comments Blood Urea Nitrogen (test code = 3094-0) 10 7-26 [facility] HospitalCreatinine2018-08-05 08:09:00* Test Item Value Reference Range Interpretation Comments Creatinine (test code = 2160-0) 0.71 0.57-1.11 [facility] HospitalBUN/Creatinine Atiga2269-02-29 08:09:00* Test Item Value Reference Range Interpretation Comments BUN/Creatinine Ratio (test code = 3097-3) 14 6-25 [facility] HospitalEstimat Glomerular Filtration Rate 2017-11-14 08:09:00* Test Item Value Reference Range Interpretation Comments Estimat Glomerular Filtration Rate (test code = 74489-7) 60- >60 Ranges were taken from the National Kidney Disease Education Program and the [facility] literature.Reference ranges:60 or greater: [id number] ( for 3 consecutive months): Chronic kidney disease 15 or less: Kidney failureCHI Baptist Saint Anthony'S HospitalGlucose Hkcum2586-83-49 08:09:00* Test Item Value Reference Range Interpretation Comments Glucose Level (test code = REN5966) 150 74-118 H [facility] HospitalCalcium Acaki3215-31-75 08:09:00* Test Item Value Reference Range Interpretation Comments Calcium Level (test code = 12312-1) 9.2 8.4-10.2 [facility] HospitalTotal Ioivplaaw9650-07-74 08:09:00* Test Item Value Reference Range Interpretation Comments Total Bilirubin (test code = 1975-2) 0.9 0.2-1.2 [facility] HospitalAspartate Amino Transf (AST/SGOT) 2017-11-14 08:09:00* Test Item Value Reference Range Interpretation Comments Aspartate Amino Transf (AST/SGOT) (test code = Aspartate Amino Transf (AST/SGOT)) 31 5-34 [facility] HospitalAlanine Aminotransferase (ALT/SGPT) 2017-11-14 08:09:00* Test Item Value Reference Range Interpretation Comments Alanine Aminotransferase (ALT/SGPT) (test code = 1742-6) 24 0-55 [facility] HospitalTotal Jfyaezh0792-57-90 08:09:00* Test Item Value Reference Range Interpretation Comments Total Protein (test code = 2885-2) 7.5 6.5-8.1 [facility] HospitalAlbumin2018-08-05 08:09:00* Test Item Value Reference Range Interpretation Comments Albumin (test code = 1751-7) 4.1 3.5-5.0 [facility] HospitalGlobulin2018-08-05 08:09:00* Test Item Value Reference Range Interpretation Comments Globulin (test code = 68077-0) 3.4 2.3-3.5 [facility] HospitalAlbumin/Globulin Kuiea7251-15-20 08:09:00 * Test Item Value Reference Range Interpretation Comments Albumin/Globulin Ratio (test code = 1759-0) 1.2 0.8-2.0 [facility] HospitalAlkaline Sfyrszdiibv7068-21-88 08:09:00* Test Item Value Reference Range Interpretation Comments Alkaline Phosphatase (test code = 6768-6) 76 40-150 [facility] HospitalCreatine Guthom1058-79-36 08:09:00* Test Item Value Reference Range Interpretation Comments Creatine Kinase (test code = 2157-6) 96 29-168 [facility] HospitalCreatine Ckftev3316-52-18 08:09:00* Test Item Value Reference Range Interpretation Comments Creatine Kinase (test code = 2157-6) 96 29-168 [facility] HospitalCreatine Ismfph0886-71-27 08:09:00* Test Item Value Reference Range Interpretation Comments Creatine Kinase (test code = 2157-6) 96 29-168 [facility] HospitalCreatine Oyyniq4318-25-73 08:09:00* Test Item Value Reference Range Interpretation Comments Creatine Kinase (test code = 2157-6) 96 29-168 [facility] HospitalCreatine Phxhmv2282-74-20 08:09:00* Test Item Value Reference Range Interpretation Comments Creatine Kinase (test code = 2157-6) 96 29-168 [facility] HospitalCreatine Fumryq2172-56-98 08:09:00* Test Item Value Reference Range Interpretation Comments Creatine Kinase (test code = 2157-6) 96 29-168 [facility] HospitalWhite Blood Plcsa9079-72-84 07:46:00* Test Item Value Reference Range Interpretation Comments White Blood Count (test code = 6690-2) 6.91 4.8-10.8 [facility] HospitalRed Blood Xyjas2746-20-79 07:46:00* Test Item Value Reference Range Interpretation Comments Red Blood Count (test code = 789-8) 4.82 3.6-5.1 [facility] HospitalHemoglobin2018-08-05 07:46:00* Test Item Value Reference Range Interpretation Comments Hemoglobin (test code = 52601-7) 12.4 12.0-16.0 [facility] HospitalHematocrit2018-08-05 07:46:00* Test Item Value Reference Range Interpretation Comments Hematocrit (test code = 4544-3) 40.1 34.2-44.1 [facility] HospitalMean Corpuscular Mywpge5245-53-13 07:46:00* Test Item Value Reference Range Interpretation Comments Mean Corpuscular Volume (test code = 787-2) 83.2 81-99 [facility] HospitalMean Corpuscular Qfembjyrko0414-35-74 07:46:00* Test Item Value Reference Range Interpretation Comments Mean Corpuscular Hemoglobin (test code = 785-6) 25.7 28-32 L [facility] HospitalMean Corpuscular Hemoglobin Concent 2017-11-14 07:46:00* Test Item Value Reference Range Interpretation Comments Mean Corpuscular Hemoglobin Concent (test code = 786-4) 30.9 31-35 L [facility] HospitalRed Cell Distribution Ctrdp2216-56-69 07:46:00* Test Item Value Reference Range Interpretation Comments Red Cell Distribution Width (test code = 55721-1) 13.7 11.7 -14.4 [facility] HospitalPlatelet Peegn2234-75-28 07:46:00* Test Item Value Reference Range Interpretation Comments Platelet Count (test code = 777-3) 258 140-360 [facility] HospitalNeutrophils (%) (Auto)2017-11-14 07:46:00 * Test Item Value Reference Range Interpretation Comments Neutrophils (%) (Auto) (test code = 35920-1) 65.4 38.7-80.0 [facility] HospitalLymphocytes (%) (Auto)2017-11-14 07:46:00 * Test Item Value Reference Range Interpretation Comments Lymphocytes (%) (Auto) (test code = 736-9) 20.7 18.0-39.1 [facility] HospitalMonocytes (%) (Auto)2017-11-14 07:46:00* Test Item Value Reference Range Interpretation Comments Monocytes (%) (Auto) (test code = 5905-5) 11.7 4.4-11.3 H [facility] HospitalEosinophils (%) (Auto)2017-11-14 07:46:00 * Test Item Value Reference Range Interpretation Comments Eosinophils (%) (Auto) (test code = 713-8) 1.3 0.0-6.0 [facility] HospitalBasophils (%) (Auto)2017-11-14 07:46:00* Test Item Value Reference Range Interpretation Comments Basophils (%) (Auto) (test code = 706-2) 0.6 0.0-1.0 [facility] HospitalIM GRANULOCYTES %2017-11-14 07:46:00* Test Item Value Reference Range Interpretation Comments IM GRANULOCYTES % (test code = IM GRANULOCYTES %) 0.3 0.0- 1.0 [facility] HospitalNeutrophils # (Auto)2017-11-14 07:46:00* Test Item Value Reference Range Interpretation Comments Neutrophils # (Auto) (test code = 751-8) 4.5 2.1-6.9 [facility] HospitalLymphocytes # (Auto)2017-11-14 07:46:00* Test Item Value Reference Range Interpretation Comments Lymphocytes # (Auto) (test code = 79535-8) 1.4 1.0-3.2 [facility] HospitalMonocytes # (Auto)2017-11-14 07:46:00* Test Item Value Reference Range Interpretation Comments Monocytes # (Auto) (test code = 742-7) 0.8 0.2-0.8 [facility] HospitalEosinophils # (Auto)2017-11-14 07:46:00* Test Item Value Reference Range Interpretation Comments Eosinophils # (Auto) (test code = 711-2) 0.1 0.0-0.4 [facility] HospitalBasophils # (Auto)2017-11-14 07:46:00* Test Item Value Reference Range Interpretation Comments Basophils # (Auto) (test code = 704-7) 0.0 0.0-0.1 [facility] HospitalAbsolute Immature Granulocyte (auto 2017-11-14 07:46:00* Test Item Value Reference Range Interpretation Comments Absolute Immature Granulocyte (auto (wandy t code = Absolute Immature Granulocyte (auto) 0.02 0-0.1 [facility] HospitalPlatelet Ozdmdswo9280-48-83 10:23:00* Test Item Value Reference Range Interpretation Comments Platelet Estimate (test code = 30970-7) ADEQUATE [facility] HospitalPlatelet Morphology Nuzxgeu6739-26-36 10:23:00* Test Item Value Reference Range Interpretation Comments Platelet Morphology Comment (test code = 33908-4) NORMAL [facility] HospitalAnisocytosis2018-02-08 10:23:00* Test Item Value Reference Range Interpretation Comments Anisocytosis (test code = 702-1) SLIGHT [facility] HospitalOvalocytes2018-02-08 10:23:00* Test Item Value Reference Range Interpretation Comments Ovalocytes (test code = 774-0) FEW [facility] HospitalRed Cell Morphology Nxkoxhm6474-34-61 10:23:00* Test Item Value Reference Range Interpretation Comments Red Cell Morphology Comment (test code = 6742-1) NORMAL [facility] HospitalPlatelet Ihfhuwyu5904-44-55 10:23:00* Test Item Value Reference Range Interpretation Comments Platelet Estimate (test code = 61312-7) ADEQUATE [facility] HospitalPlatelet Morphology Nvdhgha7469-86-00 10:23:00* Test Item Value Reference Range Interpretation Comments Platelet Morphology Comment (test code = 55543-6) NORMAL [facility] HospitalAnisocytosis2018-02-08 10:23:00* Test Item Value Reference Range Interpretation Comments Anisocytosis (test code = 702-1) SLIGHT [facility] HospitalOvalocytes2018-02-08 10:23:00* Test Item Value Reference Range Interpretation Comments Ovalocytes (test code = 774-0) FEW [facility] HospitalRed Cell Morphology Ayvwdeh1653-24-12 10:23:00* Test Item Value Reference Range Interpretation Comments Red Cell Morphology Comment (test code = 6742-1) NORMAL [facility] HospitalPlatelet Cdlrzqwt5113-74-05 10:23:00* Test Item Value Reference Range Interpretation Comments Platelet Estimate (test code = 61529-8) ADEQUATE [facility] HospitalPlatelet Morphology Cjovosh1451-19-32 10:23:00* Test Item Value Reference Range Interpretation Comments Platelet Morphology Comment (test code = 60066-4) NORMAL [facility] HospitalAnisocytosis2018-02-08 10:23:00* Test Item Value Reference Range Interpretation Comments Anisocytosis (test code = 702-1) SLIGHT [facility] HospitalOvalocytes2018-02-08 10:23:00* Test Item Value Reference Range Interpretation Comments Ovalocytes (test code = 774-0) FEW [facility] HospitalRed Cell Morphology Qulaisp0343-89-03 10:23:00* Test Item Value Reference Range Interpretation Comments Red Cell Morphology Comment (test code = 6742-1) NORMAL [facility] HospitalPlatelet Ceyugctr6446-04-74 10:23:00* Test Item Value Reference Range Interpretation Comments Platelet Estimate (test code = 38538-5) ADEQUATE [facility] HospitalPlatelet Morphology Rtbhvka3665-55-69 10:23:00* Test Item Value Reference Range Interpretation Comments Platelet Morphology Comment (test code = 83854-2) NORMAL [facility] HospitalAnisocytosis2018-02-08 10:23:00* Test Item Value Reference Range Interpretation Comments Anisocytosis (test code = 702-1) SLIGHT [facility] HospitalOvalocytes2018-02-08 10:23:00* Test Item Value Reference Range Interpretation Comments Ovalocytes (test code = 774-0) [facility] Morphology Liyradk1892-77-83 10:23:00* Test Item Value Reference Range Interpretation Comments Red Cell Morphology Comment (test code = 6742-1) NORMAL [facility] HospitalPlatelet Nsylqwny8373-95-87 10:23:00* Test Item Value Reference Range Interpretation Comments Platelet Estimate (test code = 00122-5) ADEQUATE [facility] HospitalPlatelet Morphology Vvycicb2382-66-77 10:23:00* Test Item Value Reference Range Interpretation Comments Platelet Morphology Comment (test code = 42230-2) NORMAL [facility] HospitalAnisocytosis2018-02-08 10:23:00* Test Item Value Reference Range Interpretation Comments Anisocytosis (test code = 702-1) SLIGHT [facility] HospitalOvalocytes2018-02-08 10:23:00* Test Item Value Reference Range Interpretation Comments Ovalocytes (test code = 774-0) FEW [facility] HospitalRed Cell Morphology Auecqvk8841-53-60 10:23:00* Test Item Value Reference Range Interpretation Comments Red Cell Morphology Comment (test code = 6742-1) NORMAL [facility]entonodium Fkzmc4446-43-41 10:22:00* Test Item Value Reference Range Interpretation Comments Sodium Level (test code = 2951-2) 141 136-145 [facility] HospitalPotassium Hywty9357-02-56 10:22:00* Test Item Value Reference Range Interpretation Comments Potassium Level (test code = 2823-3) 3.9 3.5-5.1 [facility] HospitalChloride Qbuwb1559-06-68 10:22:00* Test Item Value Reference Range Interpretation Comments Chloride Level (test code = 2075-0) 105 98-107 [facility] HospitalCarbon Dioxide Vffqc4244-13-83 10:22:00* Test Item Value Reference Range Interpretation Comments Carbon Dioxide Level (test code = 2028-9) 26 22-29 [facility] HospitalAnion Wpw6998-07-09 10:22:00* Test Item Value Reference Range Interpretation Comments Anion Gap (test code = 40966-9) 13.9 8-16 [facility] HospitalBlood Urea Bbshyoxq7043-06-98 10:22:00* Test Item Value Reference Range Interpretation Comments Blood Urea Nitrogen (test code = 3094-0) 11 7-26 [facility] HospitalCreatinine2018-02-08 10:22:00* Test Item Value Reference Range Interpretation Comments Creatinine (test code = 2160-0) 0.75 0.57-1.11 [facility] HospitalBUN/Creatinine Xvjvn3847-32-46 10:22:00* Test Item Value Reference Range Interpretation Comments BUN/Creatinine Ratio (test code = 3097-3) 15 6-25 [facility] HospitalEstimat Glomerular Filtration Rate 2017-05-20 10:22:00* Test Item Value Reference Range Interpretation Comments Estimat Glomerular Filtration Rate (test code = 58921-8) 60- >60 Ranges were taken from the National Kidney Disease Education Program and the [facility] Kidney Foundation literature.Reference ranges:60 or greater: Nfbfex11-78 ( for 3 consecutive months): Chronic kidney disease 15 or less: Kidney failureRolling Plains Memorial HospitalGlucose Zbvge6288-09-60 10:22:00* Test Item Value Reference Range Interpretation Comments Glucose Level (test code = QIL0821) 124 74-118 H [facility] HospitalCalcium Nayfa5272-98-62 10:22:00* Test Item Value Reference Range Interpretation Comments Calcium Level (test code = 87947-0) 9.1 8.4-10.2 [facility] HospitalTotal Rlluqqukd8051-86-03 10:22:00* Test Item Value Reference Range Interpretation Comments Total Bilirubin (test code = 1975-2) 1.0 0.2-1.2 [facility] HospitalAspartate Amino Transf (AST/SGOT) 2017-05-20 10:22:00* Test Item Value Reference Range Interpretation Comments Aspartate Amino Transf (AST/SGOT) (test code = Aspartate Amino Transf (AST/SGOT)) 23 5-34 [facility] HospitalAlanine Aminotransferase (ALT/SGPT) 2017-05-20 10:22:00* Test Item Value Reference Range Interpretation Comments Alanine Aminotransferase (ALT/SGPT) (test code = 1742-6) 17 0-55 [facility] HospitalTotal Cxmuqmf7283-33-67 10:22:00* Test Item Value Reference Range Interpretation Comments Total Protein (test code = 2885-2) 7.7 6.5-8.1 [facility] HospitalAlbumin2018-02-08 10:22:00* Test Item Value Reference Range Interpretation Comments Albumin (test code = 1751-7) 4.2 3.5-5.0 [facility] HospitalGlobulin2018-02-08 10:22:00* Test Item Value Reference Range Interpretation Comments Globulin (test code = 05242-0) 3.5 2.3-3.5 [facility] HospitalAlbumin/Globulin Vpvwx8729-04-55 10:22:00 * Test Item Value Reference Range Interpretation Comments Albumin/Globulin Ratio (test code = 1759-0) 1.2 0.8-2.0 [facility] HospitalAlkaline Euaamgkowkg5441-88-12 10:22:00* Test Item Value Reference Range Interpretation Comments Alkaline Phosphatase (test code = 6768-6) 87 40-150 [facility]entonodium Lumaj7114-11-93 10:22:00* Test Item Value Reference Range Interpretation Comments Sodium Level (test code = 2951-2) 141 136-145 [facility] HospitalPotassium Jwrpn6508-31-84 10:22:00* Test Item Value Reference Range Interpretation Comments Potassium Level (test code = 2823-3) 3.9 3.5-5.1 [facility] HospitalChloride Uqxro2875-34-60 10:22:00* Test Item Value Reference Range Interpretation Comments Chloride Level (test code = 2075-0) 105 98-107 [facility] HospitalCarbon Dioxide Hvzsj9719-89-44 10:22:00* Test Item Value Reference Range Interpretation Comments Carbon Dioxide Level (test code = 2028-9) 26 22-29 [facility] HospitalAnion Umi0935-19-91 10:22:00* Test Item Value Reference Range Interpretation Comments Anion Gap (test code = 07947-3) 13.9 8-16 [facility] HospitalBlood Urea Zrjuzqsy4887-09-37 10:22:00* Test Item Value Reference Range Interpretation Comments Blood Urea Nitrogen (test code = 3094-0) 11 7-26 [facility] HospitalCreatinine2018-02-08 10:22:00* Test Item Value Reference Range Interpretation Comments Creatinine (test code = 2160-0) 0.75 0.57-1.11 [facility] HospitalBUN/Creatinine Zkxdz2632-59-65 10:22:00* Test Item Value Reference Range Interpretation Comments BUN/Creatinine Ratio (test code = 3097-3) 15 6-25 [facility] HospitalEstimat Glomerular Filtration Rate 2017-05-20 10:22:00* Test Item Value Reference Range Interpretation Comments Estimat Glomerular Filtration Rate (test code = 68686-1) 60- >60 Ranges were taken from the National Kidney Disease Education Program and the [facility] literature.Reference ranges:60 or greater: Hejbto35-02 ( for 3 consecutive months): Chronic kidney disease 15 or less: Kidney failureRolling [facility] HospitalGlucose Otfjc2499-59-42 10:22:00* Test Item Value Reference Range Interpretation Comments Glucose Level (test code = ZIR8167) 124 74-118 H [facility] HospitalCalcium Fpsme9966-48-51 10:22:00* Test Item Value Reference Range Interpretation Comments Calcium Level (test code = 60875-4) 9.1 8.4-10.2 [facility] HospitalTotal Youcbaiem4471-37-82 10:22:00* Test Item Value Reference Range Interpretation Comments Total Bilirubin (test code = 1975-2) 1.0 0.2-1.2 [facility] HospitalAspartate Amino Transf (AST/SGOT) 2017-05-20 10:22:00* Test Item Value Reference Range Interpretation Comments Aspartate Amino Transf (AST/SGOT) (test code = Aspartate Amino Transf (AST/SGOT)) 23 5-34 [facility] HospitalAlanine Aminotransferase (ALT/SGPT) 2017-05-20 10:22:00* Test Item Value Reference Range Interpretation Comments Alanine Aminotransferase (ALT/SGPT) (test code = 1742-6) 17 0-55 [facility] HospitalTotal Tlzeght9773-73-37 10:22:00* Test Item Value Reference Range Interpretation Comments Total Protein (test code = 2885-2) 7.7 6.5-8.1 [facility] HospitalAlbumin2018-02-08 10:22:00* Test Item Value Reference Range Interpretation Comments Albumin (test code = 1751-7) 4.2 3.5-5.0 [facility] HospitalGlobulin2018-02-08 10:22:00* Test Item Value Reference Range Interpretation Comments Globulin (test code = 22393-6) 3.5 2.3-3.5 [facility] HospitalAlbumin/Globulin Yxthi5271-45-36 10:22:00 * Test Item Value Reference Range Interpretation Comments Albumin/Globulin Ratio (test code = 1759-0) 1.2 0.8-2.0 [facility] HospitalAlkaline Nbxubiuqjnk4058-40-09 10:22:00* Test Item Value Reference Range Interpretation Comments Alkaline Phosphatase (test code = 6768-6) 87 40-150 [facility] HospitalUrine GHH4101-98-44 10:16:00* Test Item Value Reference Range Interpretation Comments Urine WBC (test code = 5821-4) NONE 0-5 [facility] HospitalUrine ZBV0439-33-87 10:16:00* Test Item Value Reference Range Interpretation Comments Urine RBC (test code = 97571-5) NONE 0-5 [facility] HospitalUrine Ddyporvx4844-64-94 10:16:00* Test Item Value Reference Range Interpretation Comments Urine Bacteria (test code = 21746-5) RARE NONE [facility] HospitalUrine Epithelial Uupzm5848-92-12 10:16:00 * Test Item Value Reference Range Interpretation Comments Urine Epithelial Cells (test code = 91388-7) RARE NONE [facility] HospitalUrine Transitional Epithelial Cells 2017-05-20 10:16:00* Test Item Value Reference Range Interpretation Comments Urine Transitional Epithelial Cells (test code = 8249-5) RARE NONE H [facility] HospitalUrine TIY6782-25-72 10:16:00* Test Item Value Reference Range Interpretation Comments Urine WBC (test code = 5821-4) NONE 0-5 [facility] HospitalU[facility] GAG2890-45-51 10:16:00* Test Item Value Reference Range Interpretation Comments Urine RBC (test code = 13125-7) NONE 0-5 [facility] HospitalU[facility] Llzzfuak9603-26-74 10:16:00* Test Item Value Reference Range Interpretation Comments Urine Bacteria (test code = 56474-2) RARE NONE [facility] HospitalUrine Epithelial Ktvpo5316-27-52 10:16:00 * Test Item Value Reference Range Interpretation Comments Urine Epithelial Cells (test code = 35124-1) RARE NONE [facility] HospitalUrine Transitional Epithelial Cells 2017-05-20 10:16:00* Test Item Value Reference Range Interpretation Comments Urine Transitional Epithelial Cells (test code = 8249-5) RARE NONE H [facility] HospitalUrine GWY9070-85-20 10:16:00* Test Item Value Reference Range Interpretation Comments Urine WBC (test code = 5821-4) NONE 0-5 [facility] HospitalU[facility] XXY5972-91-14 10:16:00* Test Item Value Reference Range Interpretation Comments Urine RBC (test code = 14662-6) NONE 0-5 [facility] HospitalUrine Nqtmcpnq7785-28-02 10:16:00* Test Item Value Reference Range Interpretation Comments Urine Bacteria (test code = 51422-1) RARE NONE [facility] HospitalUrine Epithelial Wpply7230-02-72 10:16:00 * Test Item Value Reference Range Interpretation Comments Urine Epithelial Cells (test code = 83751-4) RARE NONE [facility] HospitalUrine Transitional Epithelial Cells 2017-05-20 10:16:00* Test Item Value Reference Range Interpretation Comments Urine Transitional Epithelial Cells (test code = 8249-5) RARE NONE H [facility] HospitalWhite Blood Dddyi9430-16-57 10:10:00* Test Item Value Reference Range Interpretation Comments White Blood Count (test code = 6690-2) 8.50 4.8-10.8 [facility] HospitalRed Blood Izmwr4238-19-46 10:10:00* Test Item Value Reference Range Interpretation Comments Red Blood Count (test code = 789-8) 4.84 3.6-5.1 [facility] HospitalHemoglobin2018-02-08 10:10:00* Test Item Value Reference Range Interpretation Comments Hemoglobin (test code = 19162-8) 12.9 12.0-16.0 [facility] HospitalHematocrit2018-02-08 10:10:00* Test Item Value Reference Range Interpretation Comments Hematocrit (test code = 4544-3) 41.4 34.2-44.1 [facility] HospitalMean Corpuscular Hhmabq7372-69-20 10:10:00* Test Item Value Reference Range Interpretation Comments Mean Corpuscular Volume (test code = 787-2) 85.5 81-99 [facility] HospitalMean Corpuscular Vysjmdrxbl6359-54-72 10:10:00* Test Item Value Reference Range Interpretation Comments Mean Corpuscular Hemoglobin (test code = 785-6) 26.7 28-32 L [facility] HospitalMe Corpuscular Hemoglobin Concent 2017-05-20 10:10:00* Test Item Value Reference Range Interpretation Comments Mean Corpuscular Hemoglobin Concent (test code = 786-4) 31.2 31-35 [facility] HospitalRed Cell Distribution Jrnrg5345-36-66 10:10:00* Test Item Value Reference Range Interpretation Comments Red Cell Distribution Width (test code = 65194-7) 14.6 11.7 -14.4 H [facility] HospitalPlatelet Souyi4266-38-60 10:10:00* Test Item Value Reference Range Interpretation Comments Platelet Count (test code = 777-3) 271 140-360 [facility] HospitalNeutrophils (%) (Auto)2017-05-20 10:10:00 * Test Item Value Reference Range Interpretation Comments Neutrophils (%) (Auto) (test code = 61596-0) 65.9 38.7-80.0 [facility] HospitalLymphocytes (%) (Auto)2017-05-20 10:10:00 * Test Item Value Reference Range Interpretation Comments Lymphocytes (%) (Auto) (test code = 736-9) 23.8 18.0-39.1 [facility] HospitalMonocytes (%) (Auto)2017-05-20 10:10:00* Test Item Value Reference Range Interpretation Comments Monocytes (%) (Auto) (test code = 5905-5) 8.7 4.4-11.3 [facility] HospitalEosinophils (%) (Auto)2017-05-20 10:10:00 * Test Item Value Reference Range Interpretation Comments Eosinophils (%) (Auto) (test code = 713-8) 0.6 0.0-6.0 [facility] HospitalBasophils (%) (Auto)2017-05-20 10:10:00* Test Item Value Reference Range Interpretation Comments Basophils (%) (Auto) (test code = 706-2) 0.5 0.0-1.0 [facility] HospitalIM GRANULOCYTES %2017-05-20 10:10:00* Test Item Value Reference Range Interpretation Comments IM GRANULOCYTES % (test code = IM GRANULOCYTES %) 0.5 0.0- 1.0 [facility] HospitalNeutrophils # (Auto)2017-05-20 10:10:00* Test Item Value Reference Range Interpretation Comments Neutrophils # (Auto) (test code = 751-8) 5.6 2.1-6.9 [facility] HospitalLymphocytes # (Auto)2017-05-20 10:10:00* Test Item Value Reference Range Interpretation Comments Lymphocytes # (Auto) (test code = 10673-7) 2.0 1.0-3.2 [facility] HospitalMonocytes # (Auto)2017-05-20 10:10:00* Test Item Value Reference Range Interpretation Comments Monocytes # (Auto) (test code = 742-7) 0.7 0.2-0.8 [facility] HospitalEosinophils # (Auto)2017-05-20 10:10:00* Test Item Value Reference Range Interpretation Comments Eosinophils # (Auto) (test code = 711-2) 0.1 0.0-0.4 [facility] HospitalBasophils # (Auto)2017-05-20 10:10:00* Test Item Value Reference Range Interpretation Comments Basophils # (Auto) (test code = 704-7) 0.0 0.0-0.1 [facility] HospitalAbsolute Immature Granulocyte (auto 2017-05-20 10:10:00* Test Item Value Reference Range Interpretation Comments Absolute Immature Granulocyte (auto (wandy t code = Absolute Immature Granulocyte (auto) 0.04 0-0.1 [facility] HospitalWhite Blood Qkpdk6728-62-26 10:10:00* Test Item Value Reference Range Interpretation Comments White Blood Count (test code = 6690-2) 8.50 4.8-10.8 [facility] HospitalRed Blood Ixhhy5493-31-31 10:10:00* Test Item Value Reference Range Interpretation Comments Red Blood Count (test code = 789-8) 4.84 3.6-5.1 [facility] HospitalHemoglobin2018-02-08 10:10:00* Test Item Value Reference Range Interpretation Comments Hemoglobin (test code = 91389-0) 12.9 12.0-16.0 [facility] HospitalHematocrit2018-02-08 10:10:00* Test Item Value Reference Range Interpretation Comments Hematocrit (test code = 4544-3) 41.4 34.2-44.1 [facility] HospitalMean Corpuscular Wjuisp2089-33-79 10:10:00* Test Item Value Reference Range Interpretation Comments Mean Corpuscular Volume (test code = 787-2) 85.5 81-99 [facility] HospitalMean Corpuscular Jvnottlrjs6532-78-03 10:10:00* Test Item Value Reference Range Interpretation Comments Mean Corpuscular Hemoglobin (test code = 785-6) 26.7 28-32 L [facility] HospitalMean Corpuscular Hemoglobin Concent 2017-05-20 10:10:00* Test Item Value Reference Range Interpretation Comments Mean Corpuscular Hemoglobin Concent (test code = 786-4) 31.2 31-35 [facility] HospitalRed Cell Distribution Qeavt8332-32-87 10:10:00* Test Item Value Reference Range Interpretation Comments Red Cell Distribution Width (test code = 13420-9) 14.6 11.7 -14.4 H [facility] HospitalPlatelet Oupyy6870-59-99 10:10:00* Test Item Value Reference Range Interpretation Comments Platelet Count (test code = 777-3) 271 140-360 [facility] HospitalNeutrophils (%) (Auto)2017-05-20 10:10:00 * Test Item Value Reference Range Interpretation Comments Neutrophils (%) (Auto) (test code = 61002-5) 65.9 38.7-80.0 [facility] HospitalLymphocytes (%) (Auto)2017-05-20 10:10:00 * Test Item Value Reference Range Interpretation Comments Lymphocytes (%) (Auto) (test code = 736-9) 23.8 18.0-39.1 [facility] HospitalMonocytes (%) (Auto)2017-05-20 10:10:00* Test Item Value Reference Range Interpretation Comments Monocytes (%) (Auto) (test code = 5905-5) 8.7 4.4-11.3 [facility] HospitalEosinophils (%) (Auto)2017-05-20 10:10:00 * Test Item Value Reference Range Interpretation Comments Eosinophils (%) (Auto) (test code = 713-8) 0.6 0.0-6.0 [facility] HospitalBasophils (%) (Auto)2017-05-20 10:10:00* Test Item Value Reference Range Interpretation Comments Basophils (%) (Auto) (test code = 706-2) 0.5 0.0-1.0 [facility] HospitalIM GRANULOCYTES %2017-05-20 10:10:00* Test Item Value Reference Range Interpretation Comments IM GRANULOCYTES % (test code = IM GRANULOCYTES %) 0.5 0.0- 1.0 [facility] HospitalNeutrophils # (Auto)2017-05-20 10:10:00* Test Item Value Reference Range Interpretation Comments Neutrophils # (Auto) (test code = 751-8) 5.6 2.1-6.9 [facility] HospitalLymphocytes # (Auto)2017-05-20 10:10:00* Test Item Value Reference Range Interpretation Comments Lymphocytes # (Auto) (test code = 00374-8) 2.0 1.0-3.2 [facility] HospitalMonocytes # (Auto)2017-05-20 10:10:00* Test Item Value Reference Range Interpretation Comments Monocytes # (Auto) (test code = 742-7) 0.7 0.2-0.8 [facility] HospitalEosinophils # (Auto)2017-05-20 10:10:00* Test Item Value Reference Range Interpretation Comments Eosinophils # (Auto) (test code = 711-2) 0.1 0.0-0.4 [facility] HospitalBasophils # (Auto)2017-05-20 10:10:00* Test Item Value Reference Range Interpretation Comments Basophils # (Auto) (test code = 704-7) 0.0 0.0-0.1 [facility] HospitalAbsolute Immature Granulocyte (auto 2017-05-20 10:10:00* Test Item Value Reference Range Interpretation Comments Absolute Immature Granulocyte (auto (wandy t code = Absolute Immature Granulocyte (auto) 0.04 0-0.1 [facility] HospitalUrine Elcpp9834-62-26 09:39:00* Test Item Value Reference Range Interpretation Comments Urine Color (test code = 5778-6) YELLOW YELLOW [facility] HospitalUrine Nysblhb2343-43-21 09:39:00* Test Item Value Reference Range Interpretation Comments Urine Clarity (test code = 23709-8) SL CLOUDY CLEAR [facility] HospitalUrine Specific Bitmtou9146-89-46 09:39:00 * Test Item Value Reference Range Interpretation Comments Urine Specific Weinert (test code = 5811-5) 1.015 1.010-1.02 5 [facility] HospitalUrine oM4169-61-44 09:39:00* Test Item Value Reference Range Interpretation Comments Urine pH (test code = 93579-9) 6 5-7 [facility] HospitalUrine Leukocyte Moxvoslv7563-72-04 09:39:00* Test Item Value Reference Range Interpretation Comments Urine Leukocyte Esterase (test code = 5799-2) NEGATIVE NEGATIVE [facility] HospitalUrine Rwqyhvk0443-48-90 09:39:00* Test Item Value Reference Range Interpretation Comments Urine Nitrite (test code = 29139-0) NEGATIVE NEGATIVE [facility] HospitalUrine Daagjlb9053-12-47 09:39:00* Test Item Value Reference Range Interpretation Comments Urine Protein (test code = 5804-0) 1+ NEGATIVE H [facility] Glucose (UA)2017-05-20 09:39:00* Test Item Value Reference Range Interpretation Comments Urine Glucose (UA) (test code = 2349-9) NEGATIVE NEGATIVE [facility] HospitalUrine Rdqpgwj1585-31-47 09:39:00* Test Item Value Reference Range Interpretation Comments Urine Ketones (test code = 59468-4) 1+ NEGATIVE H [facility] Zxfxursddiaq5109-88-66 09:39:00* Test Item Value Reference Range Interpretation Comments Urine Urobilinogen (test code = 25083-6) 0.2 0.2-1 [facility] Dtsgqpuhe3056-88-65 09:39:00* Test Item Value Reference Range Interpretation Comments Urine Bilirubin (test code = 1978-6) 1+ NEGATIVE H [facility] Znrzg7401-61-59 09:39:00* Test Item Value Reference Range Interpretation Comments Urine Blood (test code = 31411-7) NEGATIVE NEGATIVE [facility] HospitalU[facility] Gwngu5192-48-50 09:39:00* Test Item Value Reference Range Interpretation Comments Urine Color (test code = 5778-6) YELLOW YELLOW [facility] HospitalUrine Zpmqxzm7047-12-33 09:39:00* Test Item Value Reference Range Interpretation Comments Urine Clarity (test code = 31148-2) SL CLOUDY CLEAR [facility] Specific Peomjeh4609-12-83 09:39:00 * Test Item Value Reference Range Interpretation Comments Urine Specific Weinert (test code = 5811-5) 1.015 1.010-1.02 5 [facility] HospitalUrine yG6008-62-65 09:39:00* Test Item Value Reference Range Interpretation Comments Urine pH (test code = 96628-4) 6 5-7 [facility] HospitalU[facility] Leukocyte Bvrixdgp5809-79-65 09:39:00* Test Item Value Reference Range Interpretation Comments Urine Leukocyte Esterase (test code = 5799-2) NEGATIVE NEGATIVE [facility] HospitalU[facility] Rfzpltc1984-52-75 09:39:00* Test Item Value Reference Range Interpretation Comments Urine Nitrite (test code = 61936-4) NEGATIVE NEGATIVE [facility] HospitalU[facility] Scoecoq3220-23-54 09:39:00* Test Item Value Reference Range Interpretation Comments Urine Protein (test code = 5804-0) 1+ NEGATIVE H [facility] Glucose (UA)2017-05-20 09:39:00* Test Item Value Reference Range Interpretation Comments Urine Glucose (UA) (test code = 2349-9) NEGATIVE NEGATIVE [facility] Npckusi2888-20-78 09:39:00* Test Item Value Reference Range Interpretation Comments Urine Ketones (test code = 99780-9) 1+ NEGATIVE H [facility] Zwuthodmgwlz9700-54-43 09:39:00* Test Item Value Reference Range Interpretation Comments Urine Urobilinogen (test code = 32322-9) 0.2 0.2-1 [facility] Xuwcaeoyl6337-79-22 09:39:00* Test Item Value Reference Range Interpretation Comments Urine Bilirubin (test code = 1978-6) 1+ NEGATIVE H [facility] HospitalU[facility] Xjkro4980-72-56 09:39:00* Test Item Value Reference Range Interpretation Comments Urine Blood (test code = 71051-1) NEGATIVE NEGATIVE [facility] Lzobn3813-38-17 09:39:00* Test Item Value Reference Range Interpretation Comments Urine Color (test code = 5778-6) YELLOW YELLOW [facility] HospitalU[facility] Hjsqbxg2637-42-77 09:39:00* Test Item Value Reference Range Interpretation Comments Urine Clarity (test code = 81153-5) SL CLOUDY CLEAR [facility] HospitalUrine Specific Lqoyqty9424-36-27 09:39:00 * Test Item Value Reference Range Interpretation Comments Urine Specific Weinert (test code = 5811-5) 1.015 1.010-1.02 5 [facility] HospitalU[facility] iG6946-85-51 09:39:00* Test Item Value Reference Range Interpretation Comments Urine pH (test code = 88714-9) 6 5-7 [facility] HospitalU[facility] Leukocyte Jnnxxmul2075-69-07 09:39:00* Test Item Value Reference Range Interpretation Comments Urine Leukocyte Esterase (test code = 5799-2) NEGATIVE NEGATIVE [facility] Itevten8740-79-12 09:39:00* Test Item Value Reference Range Interpretation Comments Urine Nitrite (test code = 69076-2) NEGATIVE NEGATIVE [facility] Qjozheu4391-12-93 09:39:00* Test Item Value Reference Range Interpretation Comments Urine Protein (test code = 5804-0) 1+ NEGATIVE H [facility] HospitalUrine Glucose (UA)2017-05-20 09:39:00* Test Item Value Reference Range Interpretation Comments Urine Glucose (UA) (test code = 2349-9) NEGATIVE NEGATIVE [facility] Itdugyw4618-28-70 09:39:00* Test Item Value Reference Range Interpretation Comments Urine Ketones (test code = 17701-0) 1+ NEGATIVE H [facility] Cavhxrweaese0949-68-04 09:39:00* Test Item Value Reference Range Interpretation Comments Urine Urobilinogen (test code = 14384-0) 0.2 0.2-1 [facility] Fgqoischu7546-17-69 09:39:00* Test Item Value Reference Range Interpretation Comments Urine Bilirubin (test code = 1978-6) 1+ NEGATIVE H [facility] HospitalU[facility] Uwasx2298-27-67 09:39:00* Test Item Value Reference Range Interpretation Comments Urine Blood (test code = 84529-9) NEGATIVE NEGATIVE [facility] HospitalUric Evzp0095-89-01 07:11:00* Test Item Value Reference Range Interpretation Comments Uric Acid (test code = 3084-1) 4.9 2.6-6.0 [facility] HospitalUric Mquv5366-17-46 07:11:00* Test Item Value Reference Range Interpretation Comments Uric Acid (test code = 3084-1) 4.9 2.6-6.0 [facility] Xyel9725-68-40 07:11:00* Test Item Value Reference Range Interpretation Comments Uric Acid (test code = 3084-1) 4.9 2.6-6.0 [facility] HospitalUric Xcif8592-88-46 07:11:00* Test Item Value Reference Range Interpretation Comments Uric Acid (test code = 3084-1) 4.9 2.6-6.0 [facility] Aibyfsv1160-44-66 07:02:00* Test Item Value Reference Range Interpretation Comments Bedside Glucose (test code = 34726-5) 146 70-120 H Meter ID: [id number] Glucose 2017-03-18 07:02:00* Test Item Value Reference Range Interpretation Comments Bedside Glucose (test code = 06933-7) 146 70-120 H Meter ID: [id number] [facility] Glucose 2017-03-18 07:02:00* Test Item Value Reference Range Interpretation Comments Bedside Glucose (test code = 06864-8) 146 70-120 H Meter ID: [id number] [facility] Glucose 2017-03-18 07:02:00* Test Item Value Reference Range Interpretation Comments Bedside Glucose (test code = 49708-4) 146 70-120 H Meter ID: [id number] [facility] Pnsir2945-21-15 10:32:00* Test Item Value Reference Range Interpretation Comments Urine Yeast (test code = 99601-8) RARE NONE H [facility] Jrkyh6694-56-08 10:32:00* Test Item Value Reference Range Interpretation Comments Urine Yeast (test code = 40595-6) RARE NONE H [facility] Hcson3191-03-75 10:32:00* Test Item Value Reference Range Interpretation Comments Urine Yeast (test code = 92870-7) RARE NONE H [facility] HospitalBacteria identification in sputum by respiratory aalgkme3800-13-47 21:09:00* Test Item Value Reference Range Interpretation Comments Sputum Culture (test code = 624-7) Organism: ESCHERICHIA COLI [facility] HospitalBlood Hpvgveq1315-20-50 10:14:00* Test Item Value Reference Range Interpretation Comments Blood Culture (test code = 600-7) Organism: STAPHYLOCOCCUS SP COAG NEG [facility] HospitalDifferential Total Cells Counted 2016-10-12 08:30:00* Test Item Value Reference Range Interpretation Comments Differential Total Cells Counted (test code = Differen tial Total Cells Counted) 100 [facility] HospitalNeutrophils % (Manual)2016-10-12 08:30:00 * Test Item Value Reference Range Interpretation Comments Neutrophils % (Manual) (test code = 72656-9) 56 40-74 [facility] HospitalLymphocytes % (Manual)2016-10-12 08:30:00 * Test Item Value Reference Range Interpretation Comments Lymphocytes % (Manual) (test code = 737-7) 29 19-48 [facility] HospitalMonocytes % (Manual)2016-10-12 08:30:00* Test Item Value Reference Range Interpretation Comments Monocytes % (Manual) (test code = 744-3) 13 3.4-9.0 H [facility] HospitalReactive Dvginhnjrlw4686-48-78 08:30:00* Test Item Value Reference Range Interpretation Comments Reactive Lymphocytes (test code = 40504-4) 2 [facility] HospitalHypochromasia2017-07-03 08:30:00* Test Item Value Reference Range Interpretation Comments Hypochromasia (test code = 728-6) SLIGHT [facility] HospitalHowell-Townshend Tthnsq2019-48-56 08:30:00* Test Item Value Reference Range Interpretation Comments Jeffrey-Townshend Bodies (test code = 7793-3) FEW [facility] HospitalBlood Hayzvdn4156-21-58 14:37:00* Test Item Value Reference Range Interpretation Comments Blood Culture (test code = 98778201) Growth detected. Culture wo rkup ordered. [facility] HospitalUrine Uric Acid Rkphzoma1547-80-86 17:51:00* Test Item Value Reference Range Interpretation Comments Urine Uric Acid Crystals (test code = 5817-2) MODERATE FEW H [facility] HospitalClostridium Difficile Toxin A & B 2016-10-10 14:44:00* Test Item Value Reference Range Interpretation Comments Clostridium Difficile Toxin A & B (test code = 314027152) NEGATIVE NEGATIVE Testing on stool aspirate specimens is outside home appliance tech claims since specime n type not validated on this assay.[facility] Tbqbc4769-84-27 12:13:00* Test Item Value Reference Range Interpretation Comments Stool Occult Blood (test code = 2335-8) NEGATIVE NEGATIVE [facility] HospitalUrine Fine Granular Towug6245-03-15 11:56:00* Test Item Value Reference Range Interpretation Comments Urine Fine Granular Casts (test code = 84620-8) 1-5 >0 [facility] White [facility] Cell [id number] 11:56:00* Test Item Value Reference Range Interpretation Comments Urine White Blood Cell Casts (test code = 00466-9) 1-5 >0 H [facility] Fuono6623-83-60 11:56:00* Test Item Value Reference Range Interpretation Comments Urine Mucus (test code = 8247-9) FEW RARE H [facility] Kinase [id number] 10:53:00* Test Item Value Reference Range Interpretation Comments Creatine Kinase MB (test code = 58049-9) 0.90 0.00-5.00 [facility] [id number] 10:53:00* Test Item Value Reference Range Interpretation Comments Troponin I (test code = 69837-8) 0.005 0-0.300 [facility]Influ[facility] Virus Types A,B Antigen 2016-10-10 10:44:00* Test Item Value Reference Range Interpretation Comments Influenza Virus Types A,B Antigen (test code = 98663-3) NEGATIVE NEGATIVE [facility] Qobwso9046-24-91 10:44:00* Test Item Value Reference Range Interpretation Comments Creatine Kinase (test code = 2157-6) 127 29-168 [facility] [address] [place] [address] Patient Name: AMNA GALICIA MR #: [id number] : 1940 Age/Sex: 76/F Req #: [id number] Adm Physician: Ordered by: LEANNA MARTINEZ MD Report #: [id number] Location: OR Room/Bed: Procedure: [id number] DX/ABDOMEN-1VIEW (KUB) Exam Date: 03/18/17 Exam Time: 0620 REPORT STATUS: Signed PROCEDURE: X-RAY ABDOMEN - KUB COMPARISON: CT scan of the abdomen a nd pelvis dated 01/28/2017 INDICATIONS: PRE-OP, BILATERAL STONES F INDINGS: There are no dilated loops of bowel to suggest obstruction. T here are no masses. There are 3 small calcifications that overlie the lower p ole of the right kidney. There is no evidence of free air. No acute osseo us abnormalities are present. CONCLUSION: 1. No acute abdominal a bnormality. 2. small stones overlying the lower aspect of the right kidney. Kevin Marie D.O. Dictated by: Kevin Marie D.O. on at 8:11 Electronically approved by: Kevin Marie D.O. on 10/2016 at 8:11 Dictated By: KEVIN MARIE DO Electronically S igned By: KEVIN MARIE DO on 03/18/17 0811 Transcribed By: FAUSTINA on 03/18/17 0 811 COPY TO: LEANNA MARTINEZ MD CHEST 2 VIEWS [place] [address] Patient Name: AMNA GALICIA MR #: [id number] : 1940 Age/Sex: 76/F Req #: [id number] Adm Physician: Ordered by: LEANNA MARTINEZ MD Report #: [id number] Location: OR Room/Bed: Procedure: [id number] DX/CHEST 2 VIEWS Exam Date: Exam Time: 1300 REPORT STATUS: Signed PRO CEDURE: Frontal and lateral views of the chest. COMPARISON: Patients [facility], CT, CT CHEST WO, 10/11/2016, 8:15. [facility], DX, CHEST 2 VIEWS, 10/10/2016, 9:56. INDICATIONS: PRE OP KIDNEY STONE REMOVAL FINDINGS: Lines/tubes: None. Lungs: Mild limitation due to l ow lung volumes and body habitus. Previously visualized airspace opacity in t he right midlung has resolved. No consolidation or pulmonary edema. Minimal b ibasilar atelectasis. Pleura: There is no pleural effusion or pneumoth orax. Heart and mediastinum: The cardiac silhouette is enlarged, but stabl e, which may be partially due to low volumes. Stable, rounded density in t he retrocardiac region, consistent with previously visualized hiatal hernia. Bones: No acute bony abnormality. Degenerative changes in the thoracic spi ne. IMPRESSION: 1. limited by low lung volumes and body habitus. Mi nimal bibasilar atelectasis. Gael Muiñz M.D. Dictated by: Gael Muñiz M.D. on 02/17/2017 at 14:09 Electronically approv ed by: Gael Muñiz M.D. on 02/17/2017 at 14:09 Dictate d By: GAEL MUÑIZ MD 08 Transcribed By: FAUSTINA on 02/17/17 140 COPY TO: LEANNA MARTINEZ MD CT ABDOMEN/PELVIS WO [place] [address] Patient Name: AMNA GALICIA MR #: [id number] : 1940 Age/Sex: 76/F Req #: [id number] Adm Physician: Ordered by: MELISA SQUIRES MD Report #: [id number] Location: ER Room/Bed: Procedure: [id number] CT/CT ABDOMEN/PELVIS WO Exam Chris e: 01/28/17 Exam Time: 0946 REPORT STATUS: Sign ed PROCEDURE: CT ABDOMEN AND PELVIS WITHOUT CONTRAST COMPARISON: CT abdom en/pelvis, 11/07/14. INDICATIONS: STONE PROTOCOL TECHNIQUE: Axial CT images through the abdomen and pelvis were obtained without IV contrast. Renal stone protocol performed. Coronal and sagittal reformations were created. Total exam DLP: 803.12 mGy-cm FINDINGS: Lung bases: Scattered interstitial pr ominence the lung bases with no focal opacity or pleural effusion. Heart size normal. Liver: In the dome of the right lobe of the liver again noted are 2 stable masses containing fat and calcification, the larger measuring 2.1 cm (series 3, image 13 and image 18). No new liver mass or intrahepatic bile du ct dilatation. Spleen: No splenomegaly. 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 Pancreas: No mass, duct dilatation or peripancreatic inflammation. Adrenal Glands: No nodules. Kidneys: No hydrone phrosis. There are bilateral nonobstructing intrarenal calculi measuring 6 mm in the lower pole of the right kidney and 4 mm in the lower pole of the left kidney. These have increased slightly since the previous exam. Stable small lateral right renal cyst. Vasculature: The abdominal aorta is atherosclerot ic with scattered calcified plaque. No aneurysm. GI: Moderate hiatus hernia again noted. Ludwig colonic diverticulosis with no CT evidence for diverticulit is. Moderately large volume of stool in the colon which may be seen in consti pation. Normal appendix. Peritoneum/Retroperitoneum: No pneumoperitoneum or as cites. No dominant mesenteric or para-aortic lymphadenopathy. Bladder: Urin francia bladder appears unremarkable. No discrete abnormal mass or fluid collecti on in the pelvis. Reproductive organs: The uterus is anteverted with a small exophytic fundal mass likely representing a fibroid. Musculoskeletal: No a cute or suspicious bony lesion. There are degenerative changes in the lumbar spine. There also degenerative changes in the hips. Superficial surrounding s oft tissue unremarkable. CONCLUSION: 1. Small bilateral nonobstructing intrarenal calculi measuring up to 6 mm on the right and 4 mm on the left. T hese have increased slightly in size since previous exam. No hydronephrosis o r ureteral calculus. 2. Small masses in the dome of the right lobe of the live r, measuring up to 2.1 cm, unchanged from previous exam. 3. Ludwig colonic di verticulosis with no CT evidence for acute diverticulitis. 4. Moderate hiat us hernia. Dictated by: Ricardo Peck M.D. on 01/28/2017 at 11:0 8 Electronically approved by: Ricardo Peck M.D. on 01/28/2017 at 11:08 Dictated By: RICARDO PECK MD 1108 Transcribed By: FAUSTINA on 01/28/178 COPY TO: MELISA SQUIRES MD
== END 2019-12-08 12:01 | disposition home or self-care (01) ==
LOC: ER 08:15
DX: R30.0 Dysuria (principal); E11.65 Type 2 diabetes mellitus with hyperglycemia; I10 Essential (primary) hypertension; E78.5 Hyperlipidemia, unspecified; K21.9 Gastro-esophageal reflux disease without esophagitis; Z87.442 Personal history of urinary calculi; Z87.19 Personal history of other diseases of the digestive system
CPT/HCPCS: 36415; 51700; 80053; 81001; 85025; 87086; 99284; J0696

== ENCOUNTER 2020-10-26 08:40 | Emergency (ER) | payer OTHER ==
[~2020-10-26] VITALS: Ht 165.1 cm; Wt 87.1 kg
[2020-10-26] MEDS ORDERED: CIPRO500 MG PO (09:13)
== END 2020-10-26 09:20 | disposition home or self-care (01) ==
LOC: FSED 08:56
DX: R30.0 Dysuria (principal); R35.0 Frequency of micturition; Z87.442 Personal history of urinary calculi; Z87.440 Personal history of urinary (tract) infections; I10 Essential (primary) hypertension; E78.5 Hyperlipidemia, unspecified; K21.9 Gastro-esophageal reflux disease without esophagitis
CPT/HCPCS: 99282

== ENCOUNTER 2022-05-11 08:11 | Emergency (ER) | payer MEDICARE, OTHER ==
[~2022-05-11] VITALS: Ht 165.1 cm; Wt 87.1 kg
[~2022-05-11 08:11] MED LIST changes: +CIPRO500 MG PO
[2022-05-11 09:24] LABS: BASOPHILS % 0.3 % (0.0-1.0); EOSINOPHILS % 0.6 % (0.0-6.0); HEMATOCRIT 41.2 % (34.2-44.1); HEMOGLOBIN 13.6 g/dL (12.0-16.0); LYMPHOCYTES # (AUTO) 1.8 (1.0-3.2); LYMPHOCYTES % 27.7 % (18.0-39.1); MEAN CORPUSCULAR VOLUME 90.7 fL (81-99); MONOCYTES # (AUTO) 1.2 (0.2-0.8); MONOCYTES % 18.8 % (4.4-11.3); NEUTROPHILS # (AUTO) 3.3 (2.1-6.9); NEUTROPHILS % 52.1 % (38.7-80.0); PLATELET COUNT 216 x10e3/uL (140-360); RED BLOOD COUNT 4.54 x10e6/uL (3.6-5.1); RED CELL DISTRIBUTION WIDTH 12.2 % (11.7-14.4)
[2022-05-11 09:34] LABS: COLOR,URINE YELLOW (YELLOW)
[2022-05-11 09:35] LABS: CLARITY,URINE SL CLOUDY (CLEAR); KETONES,URINE NEGATIVE (NEGATIVE); LEUKOCYTE ESTERASE ,URINE NEGATIVE (NEGATIVE); NITRITE,URINE NEGATIVE (NEGATIVE); PROTEIN,URINE DIPSTICK 1+ (NEGATIVE); URINE UROBILINOGEN 0.2 mg/dL (0.2 - 1)
[2022-05-11 09:44] LABS: ALBUMIN 4.2 g/dL (3.5-5.0); ALBUMIN/GLOBULIN RATIO 1.3 (0.8-2.0); ANION GAP 15.5 mmol/L (8-16); BACTERIA,URINE FEW /HPF; CALCIUM 9.1 mg/dL (8.4-10.2); CREATININE, SERUM 0.63 mg/dL (0.57-1.11); EPITHELIAL CELLS,URINE FEW /LPF; POTASSIUM 3.5 mmol/L (3.5-5.1)
[2022-05-11] MEDS ORDERED: AMOX TR-K CLV1 EAC1 PO (10:54)
[2022-05-11 11:10] VITALS: BP 136/66
[2022-05-11] MEDS ORDERED: IOPAMIDOL 370 MG/ML 100 ML INFUS..BTL INJ ONE (12:26)
== END 2022-05-11 11:12 | disposition home or self-care (01) ==
LOC: ER 08:19
DX: N39.0 Urinary tract infection, site not specified (principal); I10 Essential (primary) hypertension; E11.9 Type 2 diabetes mellitus without complications; H40.9 Unspecified glaucoma; E78.5 Hyperlipidemia, unspecified; K21.9 Gastro-esophageal reflux disease without esophagitis; Z88.1 Allergy status to other antibiotic agents; Z91.012 Allergy to eggs; Z88.8 Allergy status to other drugs, medicaments and biological substances; Z91.018 Allergy to other foods; Z91.048 Other nonmedicinal substance allergy status; Z79.84 Long term (current) use of oral hypoglycemic drugs; Z79.82 Long term (current) use of aspirin; Z79.899 Other long term (current) drug therapy; Z87.442 Personal history of urinary calculi
CPT/HCPCS: 36415; 74177; 80053; 81001; 85025; 87086; 99284; Q9967

== ENCOUNTER → 2022-06-05 | Day surgery (SDC) | payer MEDICARE ==
[2022-06-02 09:43] LABS: BASOPHILS % 0.4 % (0.0-1.0); EOSINOPHILS % 0.5 % (0.0-6.0); HEMATOCRIT 42.2 % (34.2-44.1); HEMOGLOBIN 13.5 g/dL (12.0-16.0); LYMPHOCYTES # (AUTO) 2.5 (1.0-3.2); LYMPHOCYTES % 33.7 % (18.0-39.1); MEAN CORPUSCULAR HEMOGLOBIN 29.2 pg (28-32); MEAN CORPUSCULAR VOLUME 91.3 fL (81-99); MONOCYTES # (AUTO) 1.1 (0.2-0.8); MONOCYTES % 15.3 % (4.4-11.3); NEUTROPHILS # (AUTO) 3.6 (2.1-6.9); NEUTROPHILS % 49.7 % (38.7-80.0); PLATELET COUNT 236 x10e3/uL (140-360); RED BLOOD COUNT 4.62 x10e6/uL (3.6-5.1); RED CELL DISTRIBUTION WIDTH 12.5 % (11.7-14.4)
[2022-06-02 09:59] LABS: ANION GAP 15.3 mmol/L (8-16); CALCIUM 9.6 mg/dL (8.4-10.2); CREATININE, SERUM 0.65 mg/dL (0.57-1.11); POTASSIUM 3.3 mmol/L (3.5-5.1)
[~2022-06-05] MED LIST changes: +AMOX TR-K CLV1 EAC1 PO; +ATORVASTATIN CA20 MG PO; +CEFTRIAXONE 1 GM VIAL ONE; +DEXAMETHASONE SOD PHOS INJ 4 MG/ML SDV ONE; +FENTANYL CITRATE/PF 100MCG/2 ML INJ ONE; +GLYCOPYRROLATE INJ 0.2 MG/ML VIAL ONE; +LIDOCAINE HCL 2% LOCAL INJ 5 ML SDV VIAL INJ ONE; +MIDAZOLAM HCL 2 MG/2 ML VIAL ONE; +ONDANSETRON HCL INJ 2MG/ML 2ML 2 MG/ML VIAL ONE; +POVIDONE IODINE 0.05% 0.05 % ML PO ONE; +PROPOFOL IV EMULSION 10 MG/ML 20 ML VIAL ONE; +RESTASIS1 EACH OU; +SEVOFLURANE INHAL SOLN 250 ML PEN BTL ONE; +VESICARE5 MG PO
[2022-06-05 12:10] VITALS: BP 172/89
== END | disposition home or self-care (01) ==
LOC: OR 06:30
PROVIDERS: ATTEND Urology
DX: N20.0 Calculus of kidney (principal); N39.0 Urinary tract infection, site not specified; N81.6 Rectocele; N95.2 Postmenopausal atrophic vaginitis; N36.2 Urethral caruncle; N81.2 Incomplete uterovaginal prolapse; N39.46 Mixed incontinence; R35.1 Nocturia; R39.14 Feeling of incomplete bladder emptying; R80.9 Proteinuria, unspecified; E11.9 Type 2 diabetes mellitus without complications; E78.00 Pure hypercholesterolemia, unspecified; M10.9 Gout, unspecified; H40.9 Unspecified glaucoma; R06.00 Dyspnea, unspecified; J18.9 Pneumonia, unspecified organism; I10 Essential (primary) hypertension; E66.9 Obesity, unspecified; Z91.012 Allergy to eggs; Z91.048 Other nonmedicinal substance allergy status; Z01.810 Encounter for preprocedural cardiovascular examination; Z01.812 Encounter for preprocedural laboratory examination; Z01.818 Encounter for other preprocedural examination; Z79.84 Long term (current) use of oral hypoglycemic drugs; Z79.899 Other long term (current) drug therapy; Z79.82 Long term (current) use of aspirin; Z68.30 Body mass index [BMI] 30.0-30.9, adult
CPT/HCPCS: 36415 ×2; 50590; 71046; 74018; 80048; 82948; 83970; 84550; 85025; 87086; 93005; C1758; J0696; J1100; J2001; J2250; J2405; J2704; J3010

== ENCOUNTER 2022-10-14 07:27 | Emergency (ER) | payer MEDICARE ==
[~2022-10-14] VITALS: Ht 165.1 cm; Wt 87.1 kg
[~2022-10-14 07:27] MED LIST changes: -CEFTRIAXONE 1 GM VIAL ONE; -DEXAMETHASONE SOD PHOS INJ 4 MG/ML SDV ONE; -FENTANYL CITRATE/PF 100MCG/2 ML INJ ONE; -GLYCOPYRROLATE INJ 0.2 MG/ML VIAL ONE; -LIDOCAINE HCL 2% LOCAL INJ 5 ML SDV VIAL INJ ONE; -MIDAZOLAM HCL 2 MG/2 ML VIAL ONE; -ONDANSETRON HCL INJ 2MG/ML 2ML 2 MG/ML VIAL ONE; -POVIDONE IODINE 0.05% 0.05 % ML PO ONE; -PROPOFOL IV EMULSION 10 MG/ML 20 ML VIAL ONE; -SEVOFLURANE INHAL SOLN 250 ML PEN BTL ONE
[2022-10-14 09:02] VITALS: O2SAT 98
[2022-10-14 09:08] LABS: CLARITY,URINE SL CLOUDY (CLEAR); COLOR,URINE YELLOW (YELLOW); LEUKOCYTE ESTERASE ,URINE NEGATIVE (NEGATIVE); NITRITE,URINE NEGATIVE (NEGATIVE); PROTEIN,URINE DIPSTICK >=300 (NEGATIVE)
[2022-10-14 09:09] LABS: KETONES,URINE 1+ (NEGATIVE); URINE UROBILINOGEN 1 mg/dL (0.2 - 1)
[2022-10-14 09:42] LABS: EPITHELIAL CELLS,URINE MANY /LPF; RBC,URINE 0-5 /HPF (0-5); WBC,URINE (MAN) 0-5 /HPF (0-5)
== END 2022-10-14 09:00 | disposition home or self-care (01) ==
LOC: ER 07:35
DX: R30.0 Dysuria (principal); I10 Essential (primary) hypertension; E11.9 Type 2 diabetes mellitus without complications; Z87.442 Personal history of urinary calculi; Z87.898 Personal history of other specified conditions; Z87.440 Personal history of urinary (tract) infections; K21.9 Gastro-esophageal reflux disease without esophagitis; E78.5 Hyperlipidemia, unspecified
CPT/HCPCS: 81001; 87086; 99284

== ENCOUNTER 2023-04-24 08:05 | Emergency (ER) | payer MEDICARE ==
[~2023-04-24] VITALS: Ht 165.1 cm; Wt 87.1 kg
[2023-04-24 08:12] VITALS: O2SAT 99
[2023-04-24 09:53] LABS: BILIRUBIN,URINE SMALL (NEGATIVE); CLARITY,URINE SL CLOUDY (CLEAR); COLOR,URINE YELLOW (YELLOW); EPITHELIAL CELLS,URINE MODERATE /LPF; GLUCOSE, URINE 500 (NEGATIVE); KETONES,URINE TRACE (NEGATIVE); LEUKOCYTE ESTERASE ,URINE NEGATIVE (NEGATIVE); NITRITE,URINE POSITIVE (NEGATIVE); PH,URINE 6 (5 - 7); PROTEIN,URINE DIPSTICK 2+ (NEGATIVE); RBC,URINE 0-5 /HPF (0-5); URINE UROBILINOGEN 1 mg/dL (0.2 - 1)
[2023-04-24 09:54] LABS: BACTERIA,URINE MODERATE /HPF
[2023-04-24] MEDS ORDERED: CEPHALEXIN500 MG PO (10:44)
== END 2023-04-24 11:10 | disposition home or self-care (01) ==
LOC: ER 08:20
DX: R30.0 Dysuria (principal); N39.0 Urinary tract infection, site not specified; I10 Essential (primary) hypertension; E11.9 Type 2 diabetes mellitus without complications; E78.5 Hyperlipidemia, unspecified; D64.9 Anemia, unspecified; K21.9 Gastro-esophageal reflux disease without esophagitis; H40.9 Unspecified glaucoma; Z87.442 Personal history of urinary calculi; Z87.19 Personal history of other diseases of the digestive system
CPT/HCPCS: 81001; 87086; 99284

== ENCOUNTER 2024-01-21 09:18 | Emergency (ER) | payer MEDICARE ==
[~2024-01-21] VITALS: Ht 165.1 cm; Wt 81.6 kg
[~2024-01-21 09:18] MED LIST changes: +CEPHALEXIN500 MG PO
[2024-01-21 09:30] VITALS: TEMP 97.7
[2024-01-21] MEDS: SODIUM CHLORIDE 0.9% 1000ML 1,000 ML IV STA (09:45)
[2024-01-21] MEDS: KETOROLAC TROMETHAMINE 30 MG/ML VIAL IV STA (09:46)
[2024-01-21 09:50] LABS: BASOPHILS % 0.4 % (0.0-1.0); EOSINOPHILS # (AUTO) 0.1 (0.0-0.4); EOSINOPHILS % 0.7 % (0.0-6.0); HEMATOCRIT 42.4 % (34.2-44.1); HEMOGLOBIN 13.6 g/dL (12.0-16.0); LYMPHOCYTES # (AUTO) 2.1 (1.0-3.2); LYMPHOCYTES % 29.5 % (18.0-39.1); MEAN CORPUSCULAR HEMOGLOBIN 29.6 pg (28-32); MEAN CORPUSCULAR HGB CONC 32.1 g/dL (31-35); MEAN CORPUSCULAR VOLUME 92.2 fL (81-99); MONOCYTES # (AUTO) 1.4 (0.2-0.8); MONOCYTES % 19.6 % (4.4-11.3); NEUTROPHILS # (AUTO) 3.4 (2.1-6.9); NEUTROPHILS % 49.1 % (38.7-80.0); PLATELET COUNT 249 x10e3/uL (140-360); RED CELL DISTRIBUTION WIDTH 12.8 % (11.7-14.4); WHITE BLOOD COUNT 6.94 x10e3/uL (4.8-10.8)
[2024-01-21] MEDS: ONDANSETRON HCL INJ 2MG/ML 2ML 2 MG/ML VIAL IV STA (09:50)
[2024-01-21 09:55] LABS: CLARITY,URINE TURBID (CLEAR); COLOR,URINE YELLOW (YELLOW); LEUKOCYTE ESTERASE ,URINE SMALL (NEGATIVE); NITRITE,URINE NEGATIVE (NEGATIVE); PH,URINE 6 (5 - 7)
[2024-01-21 09:56] LABS: BILIRUBIN,URINE SMALL (NEGATIVE); GLUCOSE, URINE NEGATIVE (NEGATIVE); KETONES,URINE TRACE (NEGATIVE); PROTEIN,URINE DIPSTICK 2+ (NEGATIVE); URINE UROBILINOGEN 0.2 mg/dL (0.2 - 1)
[2024-01-21 09:59] LABS: INR 0.96; PARTIAL THROMBOPLASTIN TIME 28.1 seconds (23.8-35.5); PROTHROMBIN TIME 13.3 seconds (11.9-14.5)
[2024-01-21 10:11] LABS: BACTERIA,URINE FEW /HPF; EPITHELIAL CELLS,URINE MANY /LPF; WBC,URINE (MAN) >50 /HPF (0-5)
[2024-01-21 11:06] LABS: ALBUMIN 4.7 g/dL (3.5-5.0); ALBUMIN/GLOBULIN RATIO 1.2 (0.8-2.0); ANION GAP 18.1 mmol/L (8-16); BILIRUBIN,TOTAL 1.2 mg/dL (0.2-1.2); CALCIUM 10.1 mg/dL (8.4-10.2); CREATININE, SERUM 0.76 mg/dL (0.57-1.11); POTASSIUM 4.1 mmol/L (3.5-5.1); TOTAL PROTEIN 8.5 g/dL (6.5-8.1)
[2024-01-21] MEDS ORDERED: PYRIDIUM100 MG PO (11:27)
[2024-01-21] MEDS ORDERED: CEFDINIR300 MG PO (11:27)
[2024-01-21 11:31] VITALS: PULSE 69; RESP 17; O2SAT 100
== END 2024-01-21 11:44 | disposition home or self-care (01) ==
LOC: ER 09:26
DX: R30.0 Dysuria (principal); N39.0 Urinary tract infection, site not specified; K57.30 Diverticulosis of large intestine without perforation or abscess without bleeding; N20.0 Calculus of kidney; R10.30 Lower abdominal pain, unspecified; K44.9 Diaphragmatic hernia without obstruction or gangrene
CPT/HCPCS: 36415; 74176; 80053; 81001; 85025; 85610; 85730; 87086; 87186; 99284; J0696; J1885; J7030; J2405

== ENCOUNTER 2024-07-21 07:32 | Emergency (ER) | payer MEDICARE ==
[~2024-07-21] VITALS: Ht 165.1 cm; Wt 81.6 kg
[~2024-07-21 07:32] MED LIST changes: +PYRIDIUM100 MG PO
[2024-07-21] MEDS: SODIUM CHLORIDE 0.9% 1000ML 1,000 ML IV SCH (09:02)
[2024-07-21] MEDS: DICYCLOMINE HCL 20 MG/2 ML VIAL IM ONE (09:03)
[2024-07-21] MEDS: ONDANSETRON HCL INJ 2MG/ML 2ML 2 MG/ML VIAL IV STA (09:03)
[2024-07-21 09:19] LABS: BASOPHILS % 0.1 % (0.0-1.0); EOSINOPHILS # (AUTO) 0.1 (0.0-0.4); EOSINOPHILS % 0.3 % (0.0-6.0); HEMATOCRIT 40.4 % (34.2-44.1); LYMPHOCYTES # (AUTO) 1.7 (1.0-3.2); LYMPHOCYTES % 11.4 % (18.0-39.1); MEAN CORPUSCULAR HEMOGLOBIN 28.7 pg (28-32); MEAN CORPUSCULAR HGB CONC 32.2 g/dL (31-35); MEAN CORPUSCULAR VOLUME 89.2 fL (81-99); MONOCYTES # (AUTO) 3.3 (0.2-0.8); MONOCYTES % 21.7 % (4.4-11.3); NEUTROPHILS # (AUTO) 9.9 (2.1-6.9); NEUTROPHILS % 65.5 % (38.7-80.0); PLATELET COUNT 235 x10e3/uL (140-360); RED BLOOD COUNT 4.53 x10e6/uL (3.6-5.1); RED CELL DISTRIBUTION WIDTH 13.9 % (11.7-14.4); WHITE BLOOD COUNT 15.11 x10e3/uL (4.8-10.8)
[2024-07-21 09:56] LABS: ALBUMIN/GLOBULIN RATIO 1.1 (0.8-2.0); ANION GAP 17.8 mmol/L (8-16); BILIRUBIN,TOTAL 0.8 mg/dL (0.2-1.2); CALCIUM 9.6 mg/dL (8.4-10.2); CREATININE, SERUM 0.79 mg/dL (0.57-1.11); POTASSIUM 3.8 mmol/L (3.5-5.1); TOTAL PROTEIN 7.7 g/dL (6.5-8.1)
[2024-07-21 10:03] LABS: TROPONIN I 0.009 ng/mL (0-0.300)
[2024-07-21] MEDS ORDERED: IOPAMIDOL 370 MG/ML 100 ML INFUS..BTL INJ ONE (10:21)
[2024-07-21 11:52] LABS: BACTERIA,URINE FEW /HPF; BILIRUBIN,URINE NEGATIVE (NEGATIVE); CLARITY,URINE CLEAR (CLEAR); COLOR,URINE YELLOW (YELLOW); EPITHELIAL CELLS,URINE FEW /LPF; GLUCOSE, URINE NEGATIVE (NEGATIVE); KETONES,URINE NEGATIVE (NEGATIVE); LEUKOCYTE ESTERASE ,URINE NEGATIVE (NEGATIVE); NITRITE,URINE NEGATIVE (NEGATIVE); PH,URINE 5.5 (5 - 7); PROTEIN,URINE DIPSTICK NEGATIVE (NEGATIVE); RBC,URINE 0-5 /HPF (0-5); URINE UROBILINOGEN 0.2 mg/dL (0.2 - 1); WBC,URINE (MAN) 0-5 /HPF (0-5)
[2024-07-21] MEDS ORDERED: ONDANSETRON ODT4 MG PO (12:05)
[2024-07-21] MEDS ORDERED: DICYCLOMINE HCL20 MG PO (12:05)
[2024-07-21 13:05] LABS: BASOPHILS % (MANUAL) 2 % (0-1.5); LYMPHOCYTES % (MANUAL) 14 % (19-48); MONOCYTES % (MANUAL) 10 % (3.4-9.0); NEUTROPHILS % (MANUAL) 72 % (40-74); REACTIVE LYMPHOCYTES 2
[2024-07-21 13:06] LABS: PLATELET ESTIMATE ADEQUATE; PLATELET MORPHOLOGY COMMENT NORMAL; RBC MORPHOLOGY COMMENT NORMAL
[2024-07-21 13:09] VITALS: PULSE 77; PULSE 79; RESP 18; TEMP 98.1; O2SAT 98
== END 2024-07-21 13:11 | disposition home or self-care (01) ==
LOC: ER 07:58
DX: R10.30 Lower abdominal pain, unspecified (principal); K52.9 Noninfective gastroenteritis and colitis, unspecified; I10 Essential (primary) hypertension; E11.65 Type 2 diabetes mellitus with hyperglycemia; E78.5 Hyperlipidemia, unspecified; D64.9 Anemia, unspecified; H40.9 Unspecified glaucoma; K21.9 Gastro-esophageal reflux disease without esophagitis; R94.31 Abnormal electrocardiogram [ECG] [EKG]; Z87.442 Personal history of urinary calculi; Z87.19 Personal history of other diseases of the digestive system
CPT/HCPCS: 36415; 74177; 80053; 81001; 83690; 84484; 85025; 93005; 99282; J0500; J2405; J7030; Q9967

== ENCOUNTER 2024-09-30 06:14 | Emergency (ER) | payer MEDICARE ==
[~2024-09-30] VITALS: Ht 165.1 cm; Wt 80.7 kg
[~2024-09-30 06:14] MED LIST changes: +DICYCLOMINE HCL20 MG PO; +ONDANSETRON ODT4 MG PO
[2024-09-30 06:23] VITALS: TEMP 97.7
[2024-09-30 07:02] VITALS: PULSE 80; RESP 17
[2024-09-30 08:10] VITALS: BP 151/87; PULSE 90; RESP 16; TEMP 98.2; O2SAT 94
== END 2024-09-30 07:40 | disposition home or self-care (01) ==
LOC: ER 06:20
DX: R35.0 Frequency of micturition (principal); N39.0 Urinary tract infection, site not specified; I10 Essential (primary) hypertension; E11.9 Type 2 diabetes mellitus without complications; E78.5 Hyperlipidemia, unspecified; D64.9 Anemia, unspecified; K21.9 Gastro-esophageal reflux disease without esophagitis; H40.9 Unspecified glaucoma; Z87.442 Personal history of urinary calculi; Z87.19 Personal history of other diseases of the digestive system
CPT/HCPCS: 87086; 87186; 99283